=== PATIENT | female | born 1955 | race African-American/Black ===

== ENCOUNTER 2017-12-06 04:02 | Emergency (ER) | payer SELFPAY ==
[2017-12-06] MEDS ORDERED: Furosemide 40 MG/4 ML VIAL ONE (04:31)
[2017-12-06 04:33] LABS: #Basophils 0.1 thou/uL (0.0-0.2); #Eosinphils 0.3 thou/uL (0.0-0.7); #Lymphocytes 2.9 thou/uL (1.20-3.40); #Monocytes 0.6 thou/uL (0.11-0.59); #Neutrophils 4.1 thou/uL (1.40-6.50); %Basophils 1.2 % (0.0-1.0); %Eosinophils 3.5 % (0.0-10.0); %Lymphocytes 36.1 % (21.0-51.0); %Monocytes 7.7 % (0.0-10.0); %Neutrophils 51.5 % (42.0-75.0); Mean Corpuscular HGB CONC 32.9 g/dL (32.0-36.0); Mean Corpuscular Hemoglobin 32.4 pg (27.0-31.0); Mean Corpuscular Volume 98.5 fl (81.0-99.0); Platelet Count 293 thou/uL (130-400); RBC Distribution Width 12.3 % (11.5-14.5); Red Blood Cell (RBC) Count 3.72 mill/uL (4.20-5.40); White Blood Cell (WBC) Count 7.9 thou/uL (4.8-10.8)
[2017-12-06 04:42] LABS: Anion Gap 12 mmol/L (10-20); BUN (Urea Nitrogen) 16 mg/dL (9.8-20.1); Calc. Creatinine Clearance 0 mL/min (70-130); Calcium 9.5 mg/dL (7.8-10.44); Carbon Dioxide 29 mmol/L (23-31); Chloride 107 mmol/L (98-107); Estimated GFR-MDRD 58; Glucose 109 mg/dL (80-115); Sodium 144 mmol/L (136-145)
[2017-12-06 04:49] LABS: CKMB 0.6 ng/mL (0-6.6); Troponin I Less than 0.010 ng/mL (< 0.028)
--- NOTE | 2017-12-06 08:05 | RAD ---
PORTABLE CHEST 1 VIEW: Date: 12/06/17 Time: 0421 hours HISTORY: Dyspnea. FINDINGS/IMPRESSION: Comparison made with exam of 03/24/16. The heart size is enlarged. The aorta is tortuous. There is prominent vascular congestion. No focal a reas of consolidation, pneumothoraces, or large effusions are seen. POS: [facility]
== END 2017-12-06 07:35 | disposition home or self-care (01) ==
LOC: ERS 04:02
DX: R06.02 Shortness of breath (principal); Z71.6 Tobacco abuse counseling; F17.210 Nicotine dependence, cigarettes, uncomplicated; E11.9 Type 2 diabetes mellitus without complications; E78.5 Hyperlipidemia, unspecified; I11.0 Hypertensive heart disease with heart failure; I50.9 Heart failure, unspecified; Z79.899 Other long term (current) drug therapy; Z79.84 Long term (current) use of oral hypoglycemic drugs
CPT/HCPCS: 36415; 71045; 80048; 82553; 83880; 84484; 85025; 93005; 96374; 99406; J1940

== ENCOUNTER 2018-01-14 14:14 | Inpatient (IN) | payer MEDICARE, OTHER ==
[2018-01-14 14:53] LABS: #Basophils 0.1 thou/uL (0.0-0.2); #Eosinphils 0.3 thou/uL (0.0-0.7); #Lymphocytes 2.8 thou/uL (1.20-3.40); #Monocytes 0.6 thou/uL (0.11-0.59); %Basophils 1.4 % (0.0-1.0); %Eosinophils 3.4 % (0.0-10.0); %Lymphocytes 35.7 % (21.0-51.0); %Monocytes 7.7 % (0.0-10.0); %Neutrophils 51.7 % (42.0-75.0); Hemoglobin 10.6 g/dL (12.0-16.0); Mean Corpuscular Hemoglobin 32.4 pg (27.0-31.0); Mean Corpuscular Volume 98.3 fL (78.0-98.0); Mean Platelet Volume 7.2 fL (7.4-10.4); Platelet Count 274 thou/uL (130-400); RBC Distribution Width 12.2 % (11.5-14.5); Red Blood Cell (RBC) Count 3.28 mill/uL (4.20-5.40); White Blood Cell (WBC) Count 7.8 thou/uL (4.8-10.8)
--- NOTE | 2018-01-14 15:02 | RAD ---
CHEST 1 VIEW: Date: 01/14/18 HISTORY: Pain. Mastectomy. COMPARISON: 12/06/17. FINDINGS: Heart size is enlarged. There is a catheter projecting over the right hemithorax. Atelectatic changes both lung bases. No pneumothorax. IMPRESSION: 1. Postoperative drainage catheter over the right hemithorax. 2. Cardiomegaly. 3. Mild pulmonary venous congestion. POS: [facility]
[2018-01-14 15:15] LABS: ALT (SGPT) 14 U/L (8-55); AST (SGOT) 22 U/L (5-34); Albumin 3.8 g/dL (3.4-4.8); Alkaline Phosphatase 53 U/L (40-150); Anion Gap 13 mmol/L (10-20); BUN (Urea Nitrogen) 32 mg/dL (9.8-20.1); Bilirubin, Total 0.3 mg/dL (0.2-1.2); CK (CPK) 139 U/L (29-168); Calc. Creatinine Clearance 0 mL/min (70-130); Calcium 9.4 mg/dL (7.8-10.44); Carbon Dioxide 29 mmol/L (23-31); Chloride 103 mmol/L (98-107); Estimated GFR-MDRD 41; Globulin 3.7 g/dL (2.4-3.5); Glucose 111 mg/dL (80-115); Potassium 4.6 mmol/L (3.5-5.1); Protein, Total 7.5 g/dL (6.0-8.3); Sodium 140 mmol/L (136-145)
[2018-01-14 15:21] LABS: CKMB 1.8 ng/mL (0-6.6); Troponin I Less than 0.010 ng/mL (< 0.028)
[2018-01-14] MEDS ORDERED: Furosemide 40 MG/4 ML VIAL ONE (16:30)
[2018-01-14] MEDS ORDERED: Furosemide 20 MG/2 ML VIAL ONE (17:21)
[2018-01-14] MEDS ORDERED: hydrALAZINE 20 MG/ML VIAL ONE (17:44)
[2018-01-14] MEDS ORDERED: Enoxaparin Sodium 100 MG/ML SYRINGE ONE (17:44)
[2018-01-14 18:09] LABS: Actual Bicarbonate (HCO3a) 27.5 mEq/L (22-28); Base Excess (BEa) 3.1 mEq/L (-2.0 to +3.0); CO2 Tension 41.4 mmHg (35.0-45.0); Hematocrit-ABG 37.7 % (36.0-47.0); Hemoglobin (Hb) 11.4 g/dL (12.0-16.0); O2 Tension (PaO2) 119.8 mmHg (> 80.0); pH, Arterial 7.44 (7.35-7.45)
[2018-01-14 18:10] LABS: Calcium, Ionized 1.2 mmol/L (1.12-1.30)
[2018-01-14 18:11] LABS: Analyzer IN Cardio ER; Puncture Site LRA
--- NOTE | 2018-01-14 19:13 | ULT ---
BILATERAL LOWER EXTREMITY VENOUS DUPLEX EXAM: 01/14/18 HISTORY: Bilateral lower extremity pain and edema. Real time color doppler evaluation of the right and left lower extremities were performed from groin to calf. This includes evaluation of the common femoral, superficial and profunda femoral, saphenous, popliteal and posterior tibial veins. Shows patent deep venous systems bilaterally. There is normal compressibility and augmentation. There is no evidence of DVT. IMPRESSION: No evidence of DVT of either lower extremity. POS: [facility]
[2018-01-14] MEDS ORDERED: Acetaminophen 325 MG TAB ONE (20:55)
[2018-01-14 21:35] VITALS: BMI 29.9
[2018-01-14] MEDS ORDERED: Dextrose 5% in Water 1,000 ML IV PRN (21:35)
[2018-01-14] MEDS ORDERED: Senokot 8.6 MG TAB PO PRN (21:35)
[2018-01-14] MEDS ORDERED: Acetaminophen 325 MG TAB PO PRN (21:35)
[2018-01-14] MEDS ORDERED: Mag-Al 1200 mg/1200 mg/30 ML UDCUP PO PRN (21:35)
[2018-01-14] MEDS ORDERED: Dextrose 50% Abboject 50 ML SYRINGE SLOW IVP PRN (21:35)
[2018-01-14] MEDS ORDERED: Bisacodyl 5 MG TAB PO PRN (21:35)
[2018-01-14] MEDS ORDERED: Ondansetron HCl/PF 4 MG/2 ML Vial IVP PRN (21:35)
[2018-01-14] MEDS ORDERED: Calcium Carbonate 500 MG ChewTAB PO PRN (21:35)
[2018-01-14] MEDS ORDERED: HumaLOG 300 UNITS/3 ML VIAL SC PRN ×2 (21:36)
[2018-01-14] MEDS ORDERED: hydrALAZINE 20 MG/ML VIAL SLOW IVP PRN (21:39)
[2018-01-14] MEDS ORDERED: cloNIDine 0.1 MG TAB PO PRN (21:39)
[2018-01-14 22:20] LABS: Troponin I 0.032 ng/mL (< 0.028)
[2018-01-14] MEDS: HYDROcodone/Acetaminophen 5/325 mg Tablet PO PRN (22:53)
--- NOTE | 2018-01-14 23:24 | HP ---
DATE OF ADMISSION: 01/14/2018 PRIMARY CARE PHYSICIAN: Latosha Mcclellan MD at [facility]. CHIEF COMPLAINT: Shortness of breath. HISTORY OF PRESENTING ILLNESS: Ms. Mock is a pleasant 62-year-old female with past medical history of chronic diastolic congestive heart failure, hypertension, diabetes, dyslipidemia, and recent diagn osis of breast cancer status post right mastectomy yesterday; who presented to the ER with the above -mentioned complaint. History is mainly obtained by the patient herself. Electronic medical records have been reviewed. She was last admitted to office in 2015 with acute on chronic diastolic congest emily heart failure. An echocardiogram done at that time showed 55% EF with global left ventricular hy pertrophy. Ms. Mock reports that she was recently admitted at [facility] over the weekend and got out on the Wednesday. She was admitted for shortness of breath and was treated with BiPAP at that [facility] as well. Wednesday, she rested at home and was feeling fine and that was yesterday: She u nderwent right mastectomy for the recent diagnosis of invasive ductal carcinoma. She started to feel short of breath shortly afterwards and this morning, it got really bad. She presented to the emerge ncy room and was 92% on 2 liters oxygen. She required BiPAP initially and her chest x-ray suggested possible vascular congestion. She received 60 mg of Lasix and was quickly weaned off BiPAP. She und erwent a lower extremity Doppler ultrasound, which was negative for any DVT. Her D-dimer was found t o be elevated at 0.85, so a V/Q scan has been ordered for the morning, as her kidney function shows G FR of 41. Her BNP was found to be elevated to 808. At this time, Ms. Mock has been seen in [facility] and she is comfortably resting in bed and saturating we ll at 95% on 2 liters nasal cannula. The patient reports that she was given appointment to electric meter repairer to be seen next month on the t cannot recall the name. She reports compliance with her medications; however, she likes to drink 3 2 ounces of beers every day, sometimes two of them. She continues to smoke half pack of cigarette to one pack of cigarette per day. PAST MEDICAL HISTORY: 1. New diagnosis of invasive ductal carcinoma, right breast. 2. Chronic congestive diastolic heart failure. 3. Hypertension. 4. Dyslipidemia. 5. History of tobacco abuse. 6. Alcohol abuse. PAST SURGICAL HISTORY: 1. Right-sided mastectomy, 01/13/2018. 2. Cardiac catheterization in 2011. PSYCHIATRIC HISTORY: Anxiety. SOCIAL HISTORY: 1-2 ounces of beer every day. Smokes half pack of cigarettes daily, sometimes more. More than for 40 years. No history of drug abuse. FAMILY HISTORY: Significant for diabetes. ALLERGIES: RAHUL INHIBITORS. HOME MEDICATIONS: As follows atorvastatin 20 mg daily, aspirin 81 mg daily, isosorbide 15 mg p.o. da alexandra, Lasix 40 mg p.o. b.i.d., Coreg 3.125 mg p.o. b.i.d., [place] every 6 hours p.r.n., hydralazine 25 mg p.o. t.i.d., metformin 500 mg daily. REVIEW OF SYSTEMS: Twelve-point review of system is done, it is negative except for those mentioned in the history and physical. LABORATORY DATA: CBC shows hemoglobin 10.6, otherwise unremarkable. D-dimer 0.85. ABG done in the emergency room showed pH of 7.4, pCO2 of 41, pO2 of 119 on BiPAP. Serum chemistry: BUN 32, creatini ne 1.55 with baseline creatinine around 0.8, troponin less than 0.010 and repeat troponin of 0.032, B BUILDING CODE ADMINISTRATOR 808. PHYSICAL EXAMINATION: VITAL SIGNS: Most recent vital signs, temperature 97.6, pulse of 65, respirations 20, saturating 97% on 2 liters oxygen, blood pressure 132/59. GENERAL: No acute distress, awake, alert, oriented x3. HEENT: Mucous membrane is moist and pink. No oropharyngeal exudate or erythema. Head is normocepha lic, atraumatic. Pupils equal, reactive to light and accommodation. Extraocular movement intact. NECK: Supple without any lymphadenopathy, JVD, or bruit. CHEST: Evaluation showed bibasilar crackles without any significant wheezes. HEART: Rate and rhythm is regular without any murmur, rubs, or gallops. ABDOMEN: Soft, nontender, nondistended with positive bowel sounds. EXTREMITIES: Free of any cyanosis, clubbing, or edema. NEUROLOGIC: Nonfocal. SKIN: Free of any rashes or bruises, feel warm and dry to touch. PSYCHIATRIC: Normal affect. IMPRESSION AND PLAN: 1. Acute hypoxic respiratory failure. This is secondary to acute diastolic congestive heart failure exacerbation. The patient has already been weaned off BiPAP. We will monitor her overnight in IMCU and [facility] remains [facility]. Continue further diuresis with Lasix IV b.i.d. and o btain a transthoracic echocardiogram. We will request consultation with Cardiology while she is here and consult heart failure disease management team as well. Dietitian will be consulted as well as t he patient does not really seem to be aware of her diagnosis. She has been instructed to lay off her 32 ounces of beer as well. We will rule out pulmonary embolism with nuclear medicine perfusion scan in the morning. She has received 1 dose of therapeutic Lovenox at 1 mg/kg in the emergency room. 2. Acute on chronic diastolic congestive heart failure as above. Continue IV diuresis with daily we ights and strict I's and O's and echocardiogram. Heart failure management team will be consulted. S flo had a cardiac catheterization done in 2011, which did not show any significant coronary artery dis ease. She will follow up with Cardiology as an outpatient as well. 3. Elevated troponin in the indeterminate range, likely demand ischemia from acute congestive heart failure. Continue to trend serial cardiac enzymes and restart her aspirin, beta cheryle, statin. Dior hackett is allergic to RAHUL INHIBITORS. 4. Hypertension, currently well controlled. Resume home medications as above. 5. Acute renal insufficiency. We will avoid any nephrotoxic medications and recheck in the morning. 6. Elevated D-dimer and lower extremity ultrasound Doppler is negative for deep venous thrombosis. V/Q scan in the morning. She has received 1 mg/kg of Lovenox. Clinical signs and symptoms are not s uggestive of a pulmonary embolism at this time. 7. Diabetes mellitus. We will hold her metformin given acute renal insufficiency and put her on ins ulin-sliding scale for now and monitor Accu-Cheks a.c. and at bedtime. 8. Deep venous thrombosis and gastrointestinal prophylaxis. 9. Add p.r.n. medication orders. 10. Dyslipidemia. Resume her atorvastatin. 11. Code status: FULL CODE. Discussed with the patient. DISPOSITION: Ms. Mock is currently being admitted to the hospital for acute hypoxic respiratory holden lure due to acute diastolic congestive heart failure. Further management will depend upon her clinic al course.
[2018-01-15 01:21] LABS: Troponin I 0.035 ng/mL (< 0.028)
[2018-01-15 04:38] LABS: #Eosinphils 0.2 thou/uL (0.0-0.7); #Monocytes 0.7 thou/uL (0.11-0.59); #Neutrophils 5.7 thou/uL (1.40-6.50); %Basophils 0.5 % (0.0-1.0); %Eosinophils 1.8 % (0.0-10.0); %Lymphocytes 31.3 % (21.0-51.0); %Monocytes 7.2 % (0.0-10.0); %Neutrophils 59.2 % (42.0-75.0); Hemoglobin 10.2 g/dL (12.0-16.0); Mean Corpuscular HGB CONC 32.6 g/dL (32.0-36.0); Mean Platelet Volume 7.8 fL (7.4-10.4); Platelet Count 265 thou/uL (130-400); RBC Distribution Width 12.1 % (11.5-14.5); White Blood Cell (WBC) Count 9.7 thou/uL (4.8-10.8)
[2018-01-15 04:44] LABS: Anion Gap 11 mmol/L (10-20); BUN (Urea Nitrogen) 27 mg/dL (9.8-20.1); Calc. Creatinine Clearance 60 mL/min (70-130); Calcium 9.4 mg/dL (7.8-10.44); Carbon Dioxide 31 mmol/L (23-31); Chloride 102 mmol/L (98-107); Estimated GFR-MDRD 57; Glucose 157 mg/dL (80-115); Potassium 3.8 mmol/L (3.5-5.1); Sodium 140 mmol/L (136-145)
[2018-01-15 04:49] LABS: Troponin I 0.061 ng/mL (< 0.028)
[2018-01-15] MEDS: Furosemide 40 MG/4 ML VIAL SLOW IVP SCH ×2 (06:08→13:54)
[2018-01-15] MEDS: hydrALAZINE 25 MG TAB PO SCH ×3 (09:41→20:41)
[2018-01-15] MEDS: Enoxaparin Sodium 40 MG/0.4 ML SYRINGE SC SCH (09:41)
[2018-01-15] MEDS: Aspirin 81 mg Enteric Coated Tablet PO SCH (09:42)
[2018-01-15] MEDS: Famotidine 20 MG TAB PO SCH (09:42)
[2018-01-15] MEDS: Carvedilol 3.125 MG TAB PO SCH ×2 (09:42→20:42)
[2018-01-15] MEDS: HYDROcodone/Acetaminophen 5/325 mg Tablet PO PRN (09:44)
--- NOTE | 2018-01-15 11:39 | NM ---
PERFUSION LUNG SCAN: HISTORY: A 62-year-old female with a history of dyspnea and shortness of breath. The patient refused ventilat ion study. COMPARISON: Chest x-ray from 01/14/2018. TECHNIQUE: The patient was injected with 6.2 millicuries technetium 99m MAA intravenously. FINDINGS: Perfusion is slightly patchy, but no segmental or larger areas of perfusion defects are noted. IMPRESSION: No segmental or larger areas of perfusion defects. Findings are evident for a low probability of acu te pulmonary embolus. POS: [facility]
--- NOTE | 2018-01-15 14:05 | CON ---
DATE OF CONSULTATION: 01/15/2018 REASON FOR CONSULTATION: Congestive heart failure. HISTORY OF PRESENT ILLNESS: Ms. Mock is a pleasant 62-year-old woman, who I have seen and evaluated in the past. She was seen and evaluated 3 years ago. She underwent coronary angiography at that [facility] and was found to have no significant coronary artery disease, that was in 2011. She states she recently presented to [place] 1 week ago with congestive heart failure like sy mptoms. She was seen and evaluated and admitted. She was discharged 3 days later. She then had taco ctive breast surgery scheduled at [facility] on . She was released on Wednesday. She states she w ent to the pharmacy shortly after being discharged and developed shortness of breath. She then proce eded to [facility]. She appears comfortable currently. She denies a chest pain, pressure, or other associated symptoms s uggesting angina. She has not had a followup with Cardiology over the last 6 years. PAST MEDICAL HISTORY: CHF, unknown etiology (BNP of 800), hypertension, hyperlipidemia, tobacco abus e, ductal cell carcinoma of the right breast, recent mastectomy. SOCIAL HISTORY: A ygfu-bcji-yfi-day tobacco use, 1-2 alcoholic beverages per day. No current drug u se. FAMILY HISTORY: Negative for CAD. CURRENT MEDICATIONS: RAHUL INHIBITOR THERAPY. HOME MEDICATIONS: Include atorvastatin, Coreg, [place], isosorbide, Lasix, hydralazine. REVIEW OF SYSTEMS: Ten-point review of systems reviewed and as above, otherwise negative. PHYSICAL EXAMINATION: VITAL SIGNS: Blood pressure 140/74, pulse 55, temperature 98.4. GENERAL: Patient is a pleasant female who is in no acute distress. The patient appears her stated a ge. NEUROLOGIC: The patient is alert and oriented times 3 with no focal neurologic deficits. HEENT: Sclerae without icterus. Mouth has moist mucous membranes with normal pallor. NECK: No JVD. Carotid upstroke brisk. No bruits bilaterally. LUNGS: Crackles noted bilaterally. BACK: No scoliosis or kyphosis. CARDIAC: Regular rate and rhythm with normal S1 and S2. No S3 or S4 noted. No significant rubs, mu rmurs, thrills, or gallops noted throughout the precordium. PMI is not displaced. There is no wanda ternal heave. ABDOMEN: Soft, nontender, nondistended. No peritoneal signs present. No hepatosplenomegaly. No ab normal striae. EXTREMITIES: 2+ femoral and 2+ dorsalis pedis pulses. No cyanosis, clubbing, or edema. SKIN: No gross abnormalities. PERTINENT LABORATORY DATA: Hemoglobin 10.2, creatinine 1.17 with a GFR of 57. Peak troponin 0.061. BNP of 1737. EKG: Normal sinus rhythm with ST-T-wave changes suggesting LVH. IMPRESSION: 1. Heart failure of unknown etiology. 2. Shortness of breath. 3. Ductal cell carcinoma. 4. Tobacco abuse. RECOMMENDATIONS: Ms. Mock' symptoms likely represent diastolic dysfunction. She had an echocardiog juanita performed in 2016 with a significant left ventricular hypertrophy and normal left ventricular eje ction fraction. This may be related to her recent increased fluids during surgery. At this point, bert hackett would recommend repeating her echocardiogram. Continue to diurese. Continue to assess her creatin ine closely. She has no current symptoms suggesting angina.
[2018-01-15] MEDS: Atorvastatin Calcium 20 MG TAB PO SCH (20:42)
--- NOTE | 2018-01-15 21:27 | CON ---
DATE OF CONSULTATION: 01/15/2018 HISTORY OF PRESENT ILLNESS: This is a 62-year-old female who apparently sees physician at [facility]. In fact, she just underwent what she describes as a mastectomy, was due to get her medication refill when she developed shortness of breath for which she had to come straight to the hospital here. A V/Q scan was done and an x-ray was done, which shows congestive heart failure and also pulmonary em boli. She smoked a pack a day. She has been drinking excessively recently because of recent surgery. This morning, she denies any chest pain, chills or sweats. She is coughing stuff, which is relatively clear. PAST MEDICAL HISTORY: Diabetes, hyperlipidemia, high cholesterol, congestive heart failure, tobacco abuse, hypertension. PREVIOUS SURGERIES: Hysterectomy, recent mastectomy 24 hours ago. MEDICATIONS: List of medicines from home includes metformin 500 twice a day, hydralazine 25, Ismo 15 three times a day, hydrocodone, Lasix 40, Coreg 3.125, Lipitor 20, aspirin 81. ALLERGIES: RAHUL. SOCIAL HISTORY: As noted, alcohol abuse, tobacco abuse. No substance abuse. REVIEW OF SYSTEMS: Otherwise 10-point negative. PHYSICAL EXAMINATION: GENERAL: She appears to be in no acute distress. She is off the BiPAP. VITAL SIGNS: Pulse is 59, temperature 97, blood pressure 129/65, sats are 97% on 3 liters. CHEST: Bilateral crackles. CARDIAC: Normal S1, S2. No gallops. ABDOMEN: Soft, no masses. LABORATORY DATA: White count 9000, H and H is 10 and 31, platelet count 265,000. Creatinine 1.7, GF R is 57. Electrolytes are normal. Troponin slightly elevated. IMPRESSION: 1. Respiratory distress secondary to congestive heart failure. 2. Chronic obstructive pulmonary disease. 3. Recent mastectomy for breast cancer. 4. Alcohol and tobacco abuse. PLAN: Would continue neb treatments, supportive care, low dose prednisone, Lasix, input from [facility]. We will follow while in the MICU.
[2018-01-16] MEDS: HYDROcodone/Acetaminophen 5/325 mg Tablet PO PRN ×3 (01:50→22:31)
[2018-01-16 04:32] LABS: Anion Gap 13 mmol/L (10-20); BUN (Urea Nitrogen) 27 mg/dL (9.8-20.1); Calc. Creatinine Clearance 71 mL/min (70-130); Calcium 9.7 mg/dL (7.8-10.44); Carbon Dioxide 26 mmol/L (23-31); Chloride 104 mmol/L (98-107); Estimated GFR-MDRD 69; Glucose 126 mg/dL (80-115); Potassium 4.2 mmol/L (3.5-5.1); Sodium 139 mmol/L (136-145)
[2018-01-16] MEDS: Furosemide 40 MG/4 ML VIAL SLOW IVP SCH (06:44)
--- NOTE | 2018-01-16 07:52 | PDOC.CTH ---
Cardiology Progress Note - Subjective Feels better after diuresis. Pt states she did not have a cardiac piper at last week or during stay [facility]. Recent echo with EF of 30-35%. - Objective Vital Signs Temp Pulse Resp BP BP Pulse Ox 01/16/18 07:00 98.3 F 66 18 120/74 98 01/16/18 04:00 97.2 F L 53 L 21 H 126/76 95 01/16/18 01:13 97 01/16/18 00:00 97.9 F 66 15 126/76 97 01/15/18 20:41 70 126/76 01/15/18 20:00 98.9 F 70 20 97 Weight 166 lb 6.4 oz 01/15/18 01/16/18 01/17/18 06:59 06:59 06:59 Intake Total 490 1094 Output Total 630 1715 Balance -140 -621 - Physical Examination General/Neuro: alert & oriented x3, NAD Neck: carotid US brisk, no JVD present Lungs: other: (crackles bilaterally) Heart: RRR Abdomen: NT/ND, soft Extremities: + femoral B - Labs Result Diagrams: 01/15/18 03:37 01/16/18 03:31 Troponin/CKMB CK-MB (CK-2) 1.8 ng/mL (0-6.6) 01/14/18 14:45 Troponin I 0.061 ng/mL (< 0.028) H 01/15/18 03:37 - Assessment/Plan CArdiomyopathy of unknown etiology SOB Recent mastectomy HTN Discuss proceed ing with angio given new findings of cardiomyopathy. R/B of angio discussed. Also discussed R/B of DCS. No contraindications. Will speak with Yousif Rendon MD prior to cath. continue iv lasix
[2018-01-16] MEDS: predniSONE 20 MG TAB PO SCH (09:15)
[2018-01-16] MEDS: Carvedilol 3.125 MG TAB PO SCH ×2 (09:16→22:19)
[2018-01-16] MEDS: Enoxaparin Sodium 40 MG/0.4 ML SYRINGE SC SCH (09:16)
[2018-01-16] MEDS: hydrALAZINE 25 MG TAB PO SCH ×3 (09:16→22:19)
[2018-01-16] MEDS: Famotidine 20 MG TAB PO SCH (09:16)
[2018-01-16] MEDS: Aspirin 81 mg Enteric Coated Tablet PO SCH (09:16)
[2018-01-16] MEDS ORDERED: Communication Order-Pharmacy FS SCH (12:15)
[2018-01-16] MEDS ORDERED: Diazepam 5 MG TAB PO SCH (12:15)
--- NOTE | 2018-01-16 12:22 | PRG ---
DATE OF SERVICE: 01/16/2018 Ms. Mock recently was found to have a LVEF 30%-35%. She recently had a mastectomy. We would recomm end coronary angiography to assess her coronary anatomy. I did speak to the doctor on-call for Dr. Yousif Rendon. Given that her surgery was on , it would be okay from their standpoint to proceed with angio with intervention if needed. He is aware o f the use of heparin and Plavix and aspirin. I discussed the procedure in full detail with Ms. Mock , risks include, but are not limited to the following: , stroke, NV, need for emergency surgery , loss of limb, bleeding, and infection, as well as a reaction to the dye causing kidney failure and needing long-term dialysis. I also discussed the risks of PCI to include all of the above including coronary dissection and perforation in addition to acute stent thrombosis and restenosis. All questi ons about the procedure were answered. Given the above, the patient agreed to proceed with coronary angiography and possible PCI. I also discussed drug-coated versus nondrug-coated stent placement. T here are no cardiac indications. We will proceed if needed. Further recommendation pending the abov e.
--- NOTE | 2018-01-16 14:00 | PRG ---
DATE OF SERVICE: 01/16/2018 SUBJECTIVE: This morning, she is better. She is still complaining of some vague right-sided pleurit ic chest pain, but less short of breath. EF was 35%. PHYSICAL EXAMINATION: VITAL SIGNS: Blood pressure is 140/59, pulse 66, temperature is 98, sats 100% on room air. CHEST: Decreased breath sounds without any wheezing. CARDIAC: Normal S1 and S2. No gallops. ABDOMEN: Soft, no masses. IMPRESSION: 1. Congestive heart failure. 2. Cardiomyopathy, recent mastectomy. PLAN: Pulmonary-[facility] continue neb treatments, supportive care, cardiac care. We will follow.
[2018-01-16] MEDS: Furosemide 100 MG/10 ML VIAL SLOW IVP SCH (14:44)
--- NOTE | 2018-01-16 15:39 | PDOC.PN ---
- Subjective Encounter Start Date: 01/15/18 Encounter Start Time: 09:30 -: old records requested/rev Pt seen and exmained, chart reviewed in its entirety, this is my frist visit with this patient Admitted for Acut eonchronic CHF, volume overlaod, hypoxemic resp failure requiring bipap voernigh,t weane doff of bipap, good response to Diuresis. VQ done, ventilation part due topt refusal to put on mask. perfusion part normal No F/C, no N/V/C/D, no cough, no psutum or hemoptysis. no CP All systems reviewed adn neg x as per HPI - Objective MAR Reviewed: Yes Vital Signs & Weight: Vital Signs (12 hours) Temp Pulse Pulse Pulse Resp BP BP 01/16/18 14:46 68 123/60 01/16/18 13:21 68 18 01/16/18 11:59 01/16/18 11:00 98.1 F 62 20 01/16/18 09:16 66 148/59 H 01/16/18 08:36 86 67 148/59 H 01/16/18 07:58 98.3 F 66 18 01/16/18 07:56 58 L 18 01/16/18 07:00 98.3 F 66 18 01/16/18 04:00 97.2 F L 53 L 21 H BP BP Pulse Ox Pulse Ox 01/16/18 14:46 01/16/18 13:21 92 L 01/16/18 11:59 95 01/16/18 11:00 105/56 L 94 L 01/16/18 09:16 01/16/18 08:36 120/74 95 01/16/18 07:58 95 01/16/18 07:56 93 L 01/16/18 07:00 120/74 98 01/16/18 04:00 126/76 95 Weight Weight 166 lb 6.4 oz I&O: 01/15/18 01/16/18 01/17/18 06:59 06:59 06:59 Intake Total 490 1094 Output Total 738 1715 Balance -140 -621 Result Diagrams: 01/15/18 03:37 01/16/18 03:31 Additional Labs: Accuchecks 01/16/18 01/16/18 01/15/18 10:57 05:55 20:12 POC Glucose 180 H 267 H 208 H 01/15/18 17:06 POC Glucose 92 Radiology Reviewed by me: Yes EKG Reviewed by me: Yes Phys Exam - Physical Examination Constitutional: NAD HEENT: PERRLA, moist MMs, sclera anicteric, oral pharynx no lesions Neck: no nodes, no JVD, supple, full ROM Respiratory: no wheezing, no rhonchi, clear to auscultation bilateral bibasilar rales present Cardiovascular: RRR, no significant murmur, no rub Gastrointestinal: soft, non-tender, no distention, positive bowel sounds Musculoskeletal: pulses present, edema present Neurological: non-focal, normal sensation, moves all 4 limbs Lymphatic: no nodes Psychiatric: normal affect, A&O x 3 Dx/Plan (1) DM type 2 (diabetes mellitus, type 2) Status: Chronic Qualifiers: Diabetes mellitus termite technician insulin use: unspecified termite technician insulin use status Diabetes mellitus complication status: without complication Qualified Code(s): E11.9 - Type 2 diabetes mellitus without complications (2) Malignant hypertension Code(s): I10 - ESSENTIAL (PRIMARY) HYPERTENSION Status: Chronic (3) Diastolic CHF, acute on chronic Code(s): I50.33 - ACUTE ON CHRONIC DIASTOLIC (CONGESTIVE) HEART FAILURE Status : Chronic (4) Non-ischemic cardiomyopathy Code(s): I42.9 - CARDIOMYOPATHY, UNSPECIFIED Status: Chronic - Plan cont current plan of care, PT/OT, respiratory therapy, out of bed/ambulate * . contiue diuresis pulm and cardiology to see. OK to transfer to floor
--- NOTE | 2018-01-16 15:43 | PDOC.PN ---
- Subjective Encounter Start Date: 01/16/18 Encounter Start Time: 13:55 breathing better. seen by cardiology Dr paulino neil to cath tomorrow no F/C, no N/V/D/C,no Cp or sOB, no cough all systems reviewed and neg x as aper hPI - Objective MAR Reviewed: Yes Vital Signs & Weight: Vital Signs (12 hours) Temp Pulse Pulse Pulse Resp BP BP 01/16/18 14:46 68 123/60 01/16/18 13:21 68 18 01/16/18 11:59 01/16/18 11:00 98.1 F 62 20 01/16/18 09:16 66 148/59 H 01/16/18 08:36 86 67 148/59 H 01/16/18 07:58 98.3 F 66 18 01/16/18 07:56 58 L 18 01/16/18 07:00 98.3 F 66 18 01/16/18 04:00 97.2 F L 53 L 21 H BP BP Pulse Ox Pulse Ox 01/16/18 14:46 01/16/18 13:21 92 L 01/16/18 11:59 95 01/16/18 11:00 105/56 L 94 L 01/16/18 09:16 01/16/18 08:36 120/74 95 01/16/18 07:58 95 01/16/18 07:56 93 L 01/16/18 07:00 120/74 98 01/16/18 04:00 126/76 95 Weight Weight 166 lb 6.4 oz I&O: 01/15/18 01/16/18 01/17/18 06:59 06:59 06:59 Intake Total 490 1094 Output Total 630 1715 Balance -140 -621 Result Diagrams: 01/15/18 03:37 01/16/18 03:31 Additional Labs: Accuchecks 01/16/18 01/16/18 01/15/18 10:57 05:55 20:12 POC Glucose 180 H 267 H 208 H 01/15/18 17:06 POC Glucose 92 Radiology Reviewed by me: Yes Phys Exam - Physical Examination Constitutional: NAD HEENT: PERRLA, moist MMs, sclera anicteric, oral pharynx no lesions Neck: no nodes, no JVD, supple, full ROM Respiratory: no wheezing, no rales, no rhonchi, clear to auscultation bilateral Cardiovascular: RRR, no significant murmur, no rub Gastrointestinal: soft, non-tender, no distention, positive bowel sounds Musculoskeletal: no edema, pulses present Neurological: non-focal, normal sensation, moves all 4 limbs Lymphatic: no nodes Psychiatric: normal affect, A&O x 3 Skin: no rash, normal turgor, cap refill <2 seconds Dx/Plan (1) DM type 2 (diabetes mellitus, type 2) Status: Chronic Qualifiers: Diabetes mellitus group home insulin use: unspecified termite exterminator insulin use status Diabetes mellitus complication status: without complication Qualified Code(s): E11.9 - Type 2 diabetes mellitus without complications (2) Malignant hypertension Code(s): I10 - ESSENTIAL (PRIMARY) HYPERTENSION Status: Chronic (3) Diastolic CHF, acute on chronic Code(s): I50.33 - ACUTE ON CHRONIC DIASTOLIC (CONGESTIVE) HEART FAILURE Status : Chronic (4) Non-ischemic cardiomyopathy Code(s): I42.9 - CARDIOMYOPATHY, UNSPECIFIED Status: Chronic - Plan cont current plan of care * . heart cath tomorrow, transfer to tele when bed available, continue diuresis
[2018-01-16] MEDS: Atorvastatin Calcium 20 MG TAB PO SCH (22:21)
[2018-01-17 05:46] LABS: Anion Gap 12 mmol/L (10-20); BUN (Urea Nitrogen) 35 mg/dL (9.8-20.1); Calc. Creatinine Clearance 66 mL/min (70-130); Carbon Dioxide 30 mmol/L (23-31); Chloride 101 mmol/L (98-107); Estimated GFR-MDRD 63; Glucose 90 mg/dL (80-115); Potassium 3.5 mmol/L (3.5-5.1); Sodium 139 mmol/L (136-145)
[2018-01-17] MEDS: predniSONE 20 MG TAB PO SCH (06:34)
[2018-01-17] MEDS: Aspirin 81 mg Enteric Coated Tablet PO SCH (06:34)
[2018-01-17] MEDS: hydrALAZINE 25 MG TAB PO SCH ×2 (06:34→14:09)
[2018-01-17] MEDS: Carvedilol 3.125 MG TAB PO SCH (06:34)
[2018-01-17] MEDS: Famotidine 20 MG TAB PO SCH (06:35)
[2018-01-17 07:07] LABS: Hemoglobin 11.2 g/dL (12.0-16.0); Mean Corpuscular HGB CONC 33.2 g/dL (32.0-36.0); Mean Corpuscular Hemoglobin 32.3 pg (27.0-31.0); Mean Corpuscular Volume 97.3 fL (78.0-98.0); Mean Platelet Volume 7.7 fL (7.4-10.4); Platelet Count 309 thou/uL (130-400); Red Blood Cell (RBC) Count 3.47 mill/uL (4.20-5.40); White Blood Cell (WBC) Count 7.1 thou/uL (4.8-10.8)
[2018-01-17] MEDS ORDERED: Lidocaine 1% (PF) 30 ML VIAL ONE (07:31)
[2018-01-17] MEDS: Furosemide 100 MG/10 ML VIAL SLOW IVP SCH ×2 (08:03→14:12)
[2018-01-17 08:27] LABS: Band 1 % (5-11); Eosinophils 1 % (0-10); Lymphocytes 47 % (21-51); MDiff Complete? YES; Monocytes 17 % (0-10); Neutrophil 34 % (42-75); RBC Morphology Normal
[2018-01-17] MEDS ORDERED: Fentanyl 100 MCG/2 ML VIAL ONE (08:53)
[2018-01-17] MEDS ORDERED: Midazolam HCl 2 mg/2 ml Vial ONE (08:53)
[2018-01-17] MEDS ORDERED: Acetaminophen/Codeine 30-300mg Tablet PO PRN ×2 (09:10)
[2018-01-17] MEDS ORDERED: traMADol HCl 50 MG TAB PO PRN (09:10)
[2018-01-17] MEDS ORDERED: Nitroglycerin 0.4 MG TAB (25 Tab Bottle) SL PRN (09:10)
[2018-01-17] MEDS ORDERED: Sodium Chloride 0.9% 200 ML IV PRN (09:15)
[2018-01-17] MEDS ORDERED: Sodium Chloride 0.9% 1,000 ML IV SCH (09:15)
--- NOTE | 2018-01-17 10:43 | PRG ---
DATE OF SERVICE: 01/17/2018 This morning she is better, she is less short of breath. Status post cardiac cath. PHYSICAL EXAMINATION: VITAL SIGNS: Sats are 97% on room air, temperature 98, pulse 70, respiration 16, blood pressure 115/ 76. CHEST: Chest revealed decreased breath sounds, no wheezing. CARDIAC: Normal S1-S2. No gallops. ABDOMEN: Soft, no masses. IMPRESSION: 1. Chest pain, status post cath. 2. No evidence of pulmonary issues. 3. Baseline congestive heart failure. 4. Recent hysterectomy. PLAN: Pulmonary-[place] continue PT. Disposition as per Cardiology. Pulmonary will follow at a [facility]. Please call as needed.
[2018-01-17] MEDS ORDERED: Iopamidol 370 76% 100 ML VIAL ONE (11:12)
[2018-01-17] MEDS ORDERED: Clopidogrel Bisulfate 75 MG TAB ONE (12:56)
--- NOTE | 2018-01-17 14:29 | PDOC.PN ---
- Subjective Encounter Start Date: 01/17/18 Encounter Start Time: 14:28 Subjective: s/p cardiac Cath. feels well. no Chest pain/SOB.on RA - Objective MAR Reviewed: Yes Vital Signs & Weight: Vital Signs (12 hours) Temp Pulse Resp BP BP Pulse Ox 01/17/18 14:09 154/72 H 01/17/18 11:04 98.5 F 60 16 136/104 H 94 L 01/17/18 08:24 98.5 F 60 16 115/71 97 01/17/18 06:53 60 14 01/17/18 06:34 60 135/76 01/17/18 04:30 99 F 50 L 20 124/80 98 Weight Weight 169 lb 1.6 oz I&O: 01/16/18 01/17/18 01/18/18 06:59 06:59 06:59 Intake Total 1094 1458 Output Total 8001 7720 [facility]563 [id number] Result Diagrams: 01/17/18 05:06 01/17/18 05:06 Additional Labs: Accuchecks 01/17/18 01/16/18 01/16/18 06:38 22:39 20:09 POC Glucose 97 134 H 355 H 01/16/18 16:33 POC Glucose 143 H labs reviewed Laboratory Tests 01/14/18 01/15/18 01/16/18 14:46 03:37 03:31 Creatinine 1.55 H 1.17 H 0.99 01/17/18 05:06 Creatinine 1.07 Phys Exam - Physical Examination Constitutional: NAD HEENT: PERRLA, moist MMs, sclera anicteric, oral pharynx no lesions Neck: no nodes, no JVD, supple, full ROM Respiratory: no wheezing, no rales, no rhonchi, clear to auscultation bilateral Cardiovascular: RRR, no significant murmur, no rub Gastrointestinal: soft, non-tender, no distention, positive bowel sounds Musculoskeletal: no edema, pulses present R mastectomy status w drain in place Neurological: non-focal, normal sensation, moves all 4 limbs Psychiatric: normal affect, A&O x 3 Skin: no rash Dx/Plan (1) Diastolic CHF, acute on chronic Code(s): I50.33 - ACUTE ON CHRONIC DIASTOLIC (CONGESTIVE) HEART FAILURE Status : Chronic (2) Demand ischemia Code(s): I24.8 - OTHER FORMS OF ACUTE ISCHEMIC HEART DISEASE Status: Acute (3) LANEY (acute kidney injury) Code(s): N17.9 - ACUTE KIDNEY FAILURE, UNSPECIFIED Status: Acute (4) DM type 2 (diabetes mellitus, type 2) Status: Chronic Qualifiers: 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 webster.S/P R mastectomy this month (7) HTN (hypertension) Code(s): I10 - ESSENTIAL (PRIMARY) HYPERTENSION Status: Chronic (8) HLD (hyperlipidemia) Code(s): E78.5 - HYPERLIPIDEMIA, UNSPECIFIED Status: Chronic (9) Tobacco abuse counseling Code(s): Z71.6 - TOBACCO ABUSE COUNSELING Status: Chronic - Plan plan discussed w/ family, DVT proph w/SCDs s/p cardiac Cath-mild to Mod CAD.Medical managemnet per cardiology -: may need life Vest prior to Dc. -: Clinically stable for DC today if OK w Cardiology -: OP f/u w HF clinic & CR and cardiology recommended -: cont cardio-prudent meds.ASA,statin,BB. Allergic to RAHUL-I. * .add lasix and aldactone on DC as well * tele * am labs if still here tomorrow Review of Systems - Review of Systems Constitutional: negative: fever, chills, sweats, weakness, malaise, other ENT: negative: Ear Pain, Ear Discharge, Nose Pain, Nose Discharge, Nose Congestion, Mouth Pain, Mouth Swelling, Throat Pain, Throat Swelling, Other Respiratory: negative: Cough, Dry, Shortness of Breath, Hemoptysis, SOB with Excertion, Pleuritic Pain, Sputum, Wheezing Cardiovascular: negative: chest pain, palpitations, orthopnea, paroxysmal nocturnal dyspnea, edema, light headedness, other Gastrointestinal: negative: Nausea, Vomiting, Abdominal Pain, Diarrhea, Constipation, Melena, Hematochezia, Other Genitourinary: negative: Dysuria, Frequency, Incontinence, Hematuria, Retention , Other Musculoskeletal: negative: Neck Pain, Shoulder Pain, Arm Pain, Back Pain, Hand Pain, Leg Pain, Foot Pain, Other Neurological: negative: Weakness, Numbness, Incoordination, Change in Speech, Confusion, Seizures, Other - Medications/Allergies Allergies/Adverse Reactions: Allergies Allergy/AdvReac Type Severity Reaction Status Date / Time RAHUL Inhibitors Allergy Intermediate Swollen Verified 01/14/18 21:57 Lips ARB-Angiotensin Receptor Allergy tingling Verified 01/17/18 13:10 Antagonist tongue Medications: Current Medications Acetaminophen (Tylenol) 650 mg PO Q4H PRN PRN Reason: Headache/Fever or Pain Acetaminophen/Codeine Phosphate (Tylenol #3) 1 tab PO Q4H PRN PRN Reason: Mild Pain (1-3) Acetaminophen/Codeine Phosphate (Tylenol #3) 2 tab PO Q4H PRN PRN Reason: Moderate Pain (4-6) Hydrocodone Bitart/Acetaminophen ([place] 5/325) 1 tab PO Q4H PRN PRN Reason: Moderate Pain (4-6) Last Admin: 01/16/18 22:31 Dose: 1 tab Al Hydroxide/Mg Hydroxide (Maalox) 30 ml PO Q6H PRN PRN Reason: Heartburn or Indigestion Albuterol/Ipratropium (Duoneb) 3 ml NEB Q6H PRN PRN Reason: SOB &/or Wheezing Albuterol/Ipratropium (Duoneb) 3 ml NEB [id number] [facility] Last Admin: 01/17/18 13:10 Dose: 3 ml Aspirin (Ecotrin) 81 mg PO DAILY [facility] Last Admin: 01/17/18 06:34 Dose: 81 mg Atorvastatin Calcium (Lipitor) 20 mg PO HS [facility] Last Admin: 01/16/18 22:21 Dose: 20 mg Bisacodyl (Dulcolax) 10 mg PO DAILYPRN PRN PRN Reason: Constipation Calcium Carbonate (Tums) 1,000 mg PO Q4H PRN PRN Reason: Heartburn or Indigestion Carvedilol (Coreg) 3.125 mg PO BID [facility] Last Admin: 01/17/18 06:34 Dose: 3.125 mg Clonidine (Catapres) 0.1 mg PO Q4H PRN PRN Reason: SBP>160 Dextrose/Water (Dextrose 50%) 25 gm SLOW IVP PRN PRN PRN Reason: Hypoglycemia Diazepam (Valium) 5 mg PO ONE [facility] Stop: 01/17/18 23:59 Last Admin: 01/17/18 08:27 Dose: 5 mg Famotidine (Pepcid) 20 mg PO DAILY [facility] Last Admin: 01/17/18 06:35 Dose: 20 mg Furosemide (Lasix) 80 mg SLOW IVP 0600,1400 [facility] Last Admin: 01/17/18 14:12 Dose: 80 mg Glucagon (Glucagon) 1 mg IM PRN PRN PRN Reason: Hypoglycemia Hydralazine HCl (Apresoline) 10 mg SLOW IVP Q4H PRN PRN Reason: SBP>170 Hydralazine HCl (Apresoline) 25 mg PO TID [facility] Last Admin: 01/17/18 14:09 Dose: 25 mg Dextrose/Water (D5w) 1,000 mls @ 0 mls/hr IV .Q0M PRN; As Directed PRN Reason: Hypoglycemia Sodium Chloride (Normal Saline 0.9%) 200 mls @ 0 mls/hr IV ONE PRN; As Directed PRN Reason: SBP < 90 Stop: 01/17/18 23:00 Insulin Human Lispro (Humalog) 0 units SC .MODERATE SLIDING SC PRN PRN Reason: Moderate Correctional Scale Insulin Human Lispro (Humalog) 0 units SC .BEDTIME SLIDING SC PRN PRN Reason: Bedtime Correctional Scale Nitroglycerin (Nitrostat) 0.4 mg SL Q5MIN PRN PRN Reason: Chest Pain Ondansetron HCl (Zofran) 4 mg IVP Q6H PRN PRN Reason: Nausea/Vomiting Prednisone (Prednisone) 20 mg PO QAM-WM [facility] Last Admin: 01/17/18 06:34 Dose: 20 mg Senna (Senokot) 2 tab PO HSPRN PRN PRN Reason: Constipation Tramadol HCl (Ultram) 50 mg PO Q6H PRN PRN Reason: Moderate Pain (4-6)
[2018-01-17] MEDS ORDERED: Spironolactone 25 MG TAB PO SCH (15:00)
[2018-01-17 15:44] VITALS: BP 145/71; TEMP 98.3
--- NOTE | 2018-01-18 14:36 | DIS ---
DATE OF ADMISSION: 01/15/2018 DATE OF DISCHARGE: 01/17/2018 CONDITION AT THE TIME OF DISCHARGE: Stable and improved. PRIMARY CARE PHYSICIAN: Latosha Mcclellan MD DISCHARGE DIAGNOSES: 1. Acute on chronic diastolic congestive heart failure. 2. Demand ischemia. 3. Acute renal insufficiency. 4. Diabetes mellitus type 2. 5. Nonischemic cardiomyopathy. 6. History of breast cancer status post recent right mastectomy earlier this month. 7. Hypertension. 8. Dyslipidemia. 9. Tobacco abuse. DISCHARGE MEDICATIONS: As follows, Lipitor 20 mg daily, aspirin 81 mg daily, Lasix 40 mg p.o. b.i.d. , Coreg 3.125 mg p.o. b.i.d., [place] as needed, hydralazine 25 t.i.d., metformin 500 mg, Medrol Dosepa k, and Aldactone 12.5 mg daily. INHOUSE CONSULTATIONS: 1. Cardiology, Dr. Harp. 2. Pulmonary Medicine, Dr. Mcclure. PROCEDURES DONE IN THE HOSPITAL: 1. Cardiac catheterization which showed mild to moderate coronary artery disease and nonischemic car diomyopathy. Medical management is recommended. She was found to have 30% lesion in the left circum flex in the mid area and 20% lesion stenosis in the mid RCA. 2. Nuclear medicine perfusion scan, which was low probability for pulmonary embolism. 3. Transthoracic echocardiogram which shows ejection fraction of 30%-35% with restrictive diastolic dysfunction and mild to moderate tricuspid regurgitation and mitral regurgitation. HISTORY OF PRESENTING ILLNESS: Ms. Mock is a pleasant 62-year-old female with known history of hype rtension, dyslipidemia, chronic congestive diastolic heart failure and nonischemic cardiomyopathy wit h a new diagnosis of invasive ductal carcinoma of the right breast, status post right mastectomy on 0 01/13/2018 by , presented to the emergency room with complaints of shortness of breath. Upon presentation, she was somewhat hypoxic and was found to have acute on chronic diastolic congestive h eart failure exacerbation. She was also found to have elevated troponin in the indeterminant range l ikely demand ischemia. She received oxygen and was stabilized and was given Lovenox as well as Lasix and was admitted to [facility] for further evaluation on BiPAP. Please see admission history and physical for further details dictated by myself. She did have an elevated D-dimer and lower extremity ultras ound was done which was negative for DVT. VQ scan was ordered. HOSPITAL COURSE: The VQ scan was negative was low probability for pulmonary embolism. Echocardiogra m was ordered. Cardiology was consulted as well as Pulmonary Medicine because the patient was in [facility]. Dr. Harp saw the patient and given her history of nonischemic cardiomyopathy. She underwent a cardiac catheterization which showed minimal coronary artery disease. Echo was repeated which edwin wed EF of 30%-35%, which has significantly reduced in comparison to her old echocardiogram which had ejection fraction of 55% in 2016. LifeVest was ordered and the patient was fitted prior to discharge . By the time of discharge, she was back to herself and did not require any oxygen. She was started on Aldactone and was continued on RAHUL inhibitor, beta cheryle, aspirin, and Lasix as well. She was cleared for discharge by Pulmonary Medicine as well as Cardiology with outpatient followups. She was seen and examined prior to discharge. Please see hospitalist progress note from the date of discharge for further detail including [id number] interaction. She is set up for the cardiac rehab as an outpatient as well as heart failure clinic. Discharge plan was discussed with the patient who verbalized understanding. All the questions were answered. Prescriptions were provided. Total time spent 35 minutes.
== END 2018-01-17 19:15 | disposition home or self-care (01) | DRG 286 ==
LOC: ERS 14:14 → ERHOLD 19:20 → IMCU/EMU 20:53 → 2NO 01-16 20:15
PROVIDERS: ADMIT Family Medicine; ATTEND Family Medicine
PROC: 4A023N7 Measurement of Cardiac Sampling and Pressure, Left Heart, Percutaneous Approach (ICD-10-PCS; principal; 2018-01-17)
PROC: B2111ZZ Fluoroscopy of Multiple Coronary Arteries using Low Osmolar Contrast (ICD-10-PCS; 2018-01-17)
DX: I11.0 Hypertensive heart disease with heart failure (principal); J96.01 Acute respiratory failure with hypoxia; I26.99 Other pulmonary embolism without acute cor pulmonale; I24.8 Other forms of acute ischemic heart disease; I50.33 Acute on chronic diastolic (congestive) heart failure; I25.10 Atherosclerotic heart disease of native coronary artery without angina pectoris; I42.8 Other cardiomyopathies; J44.9 Chronic obstructive pulmonary disease, unspecified; E78.5 Hyperlipidemia, unspecified; F17.210 Nicotine dependence, cigarettes, uncomplicated; C50.911 Malignant neoplasm of unspecified site of right female breast; E11.9 Type 2 diabetes mellitus without complications; Z90.11 Acquired absence of right breast and nipple; Z79.84 Long term (current) use of oral hypoglycemic drugs; Z79.82 Long term (current) use of aspirin
CPT/HCPCS: 36415; 36416; 71045; 76942; 78451; 80048; 80053; 82553; 82805; 83880; 84484; 85025; 85379; 93005; 93306; 93454; 93798; 93970; 94640; 94660; 94760; 96372; 96374; 96375; 96376; 99152; A9540; C1760; C1769; J0360; J1644; J1650; J1940; J2001; J2250; J3010; J7506; J7620

== ENCOUNTER 2018-03-28 09:23 | Emergency (ER) | payer MEDICARE, MEDICAID ==
[2018-03-28 09:55] LABS: #Eosinphils 0.1 thou/uL (0.0-0.7); #Lymphocytes 0.9 thou/uL (1.20-3.40); #Monocytes 0.4 thou/uL (0.11-0.59); #Neutrophils 4.1 thou/uL (1.40-6.50); %Basophils 0.3 % (0.0-1.0); %Eosinophils 1.9 % (0.0-10.0); %Lymphocytes 15.9 % (21.0-51.0); %Monocytes 6.4 % (0.0-10.0); %Neutrophils 75.5 % (42.0-75.0); Hemoglobin 12.3 g/dL (12.0-16.0); Mean Corpuscular HGB CONC 31.6 g/dL (32.0-36.0); Mean Corpuscular Hemoglobin 30.3 pg (27.0-31.0); Mean Corpuscular Volume 95.9 fL (78.0-98.0); Mean Platelet Volume 7.5 fL (7.4-10.4); Platelet Count 315 thou/uL (130-400); RBC Distribution Width 12.9 % (11.5-14.5); Red Blood Cell (RBC) Count 4.04 mill/uL (4.20-5.40); White Blood Cell (WBC) Count 5.5 thou/uL (4.8-10.8)
--- NOTE | 2018-03-28 10:11 | RAD ---
PORTABLE UPRIGHT FRONTAL CHEST RADIOGRAPH: Date: 03-28-18 Comparison: 01-14-18 History: Shortness of breath, dyspnea. FINDINGS: There is atherosclerotic calcification of the aortic arch. There is no pneumothorax, pleural fluid, f ocal consolidation or alveolar edema. IMPRESSION: No acute findings. POS: LEOH
[2018-03-28 10:16] LABS: ALT (SGPT) 9 U/L (8-55); AST (SGOT) 14 U/L (5-34); Albumin 4.4 g/dL (3.4-4.8); Alkaline Phosphatase 75 U/L (40-150); Anion Gap 14 mmol/L (10-20); BUN (Urea Nitrogen) 16 mg/dL (9.8-20.1); Bilirubin, Total 0.3 mg/dL (0.2-1.2); Calc. Creatinine Clearance 0 mL/min (70-130); Calcium 9.9 mg/dL (7.8-10.44); Carbon Dioxide 27 mmol/L (23-31); Chloride 104 mmol/L (98-107); Estimated GFR-MDRD 62; Globulin 3.9 g/dL (2.4-3.5); Glucose 146 mg/dL (80-115); Potassium 3.4 mmol/L (3.5-5.1); Protein, Total 8.3 g/dL (6.0-8.3); Sodium 142 mmol/L (136-145)
[2018-03-28 10:20] LABS: CKMB 1.6 ng/mL (0-6.6); Troponin I Less than 0.010 ng/mL (< 0.028)
== END 2018-03-28 10:34 | disposition home or self-care (01) ==
LOC: ERS 09:23
DX: R06.02 Shortness of breath (principal); R05 Cough; I11.0 Hypertensive heart disease with heart failure; I50.9 Heart failure, unspecified; I43 Cardiomyopathy in diseases classified elsewhere; E78.5 Hyperlipidemia, unspecified; F17.210 Nicotine dependence, cigarettes, uncomplicated; E11.9 Type 2 diabetes mellitus without complications; Z79.899 Other long term (current) drug therapy; Z79.84 Long term (current) use of oral hypoglycemic drugs
CPT/HCPCS: 36415; 71045; 80053; 82553; 83880; 84484; 93005

== ENCOUNTER 2018-08-02 11:17 | Emergency (ER) | payer MEDICARE, MEDICAID ==
[2018-08-02] MEDS ORDERED: Ketorolac Tromethamine 30 MG/ML VIAL ONE (12:16)
== END 2018-08-02 12:55 | disposition home or self-care (01) ==
LOC: ERS 11:17
DX: R07.89 Other chest pain (principal); E11.9 Type 2 diabetes mellitus without complications; E78.5 Hyperlipidemia, unspecified; I11.0 Hypertensive heart disease with heart failure; I50.9 Heart failure, unspecified; F17.210 Nicotine dependence, cigarettes, uncomplicated; Z79.899 Other long term (current) drug therapy; Z79.84 Long term (current) use of oral hypoglycemic drugs; Z79.82 Long term (current) use of aspirin
CPT/HCPCS: 36415; 93005; 96374; J1885

== ENCOUNTER 2018-12-13 10:02 | Emergency (ER) | payer MEDICARE, MEDICAID | END 2018-12-13 10:46 | disposition home or self-care (01) | LOC: ERS 10:02 | DX: M25.551 Pain in right hip (principal); M25.552 Pain in left hip; E11.9 Type 2 diabetes mellitus without complications; E78.5 Hyperlipidemia, unspecified; I11.0 Hypertensive heart disease with heart failure; I50.9 Heart failure, unspecified; F17.210 Nicotine dependence, cigarettes, uncomplicated; Z79.84 Long term (current) use of oral hypoglycemic drugs; Z79.899 Other long term (current) drug therapy; Z79.891 Long term (current) use of opiate analgesic | CPT/HCPCS: 99281 ==

== ENCOUNTER 2019-06-19 07:08 | Emergency (ER) | payer MEDICARE, MEDICAID ==
[2019-06-19] MEDS ORDERED: Furosemide 40 MG/4 ML VIAL ONE ×2 (07:38→07:47)
[2019-06-19 08:22] LABS: Troponin I 0.036 ng/mL (< 0.028)
== END 2019-06-19 10:16 | disposition home or self-care (01) ==
LOC: ERS 07:08
DX: I11.0 Hypertensive heart disease with heart failure (principal); I50.9 Heart failure, unspecified; E11.9 Type 2 diabetes mellitus without complications; E78.5 Hyperlipidemia, unspecified; E78.00 Pure hypercholesterolemia, unspecified; I25.10 Atherosclerotic heart disease of native coronary artery without angina pectoris; F17.210 Nicotine dependence, cigarettes, uncomplicated; Z79.899 Other long term (current) drug therapy; Z79.82 Long term (current) use of aspirin; Z79.84 Long term (current) use of oral hypoglycemic drugs
CPT/HCPCS: 36415; 93005; 96374; J1940

== ENCOUNTER 2019-07-10 00:52 | Inpatient (IN) | payer MEDICARE, MEDICAID ==
[2019-07-10] MEDS ORDERED: Albuterol Sulfate 2.5 mg/3 ml Neb ONE (01:05)
[2019-07-10] MEDS ORDERED: Nitroglycerin 2% Ointment 1 INCH/1 GM Packet ONE (01:13)
[2019-07-10] MEDS ORDERED: Aspirin 325 MG TAB ONE (01:13)
[2019-07-10] MEDS ORDERED: Furosemide 40 MG/4 ML VIAL ONE (01:13)
[2019-07-10 01:14] LABS: Actual Bicarbonate (HCO3a) 25.3 mEq/L (22-28); Analyzer IN Cardio ER; Base Excess (BEa) 1.1 mEq/L (-2.0 to +3.0); CO2 Tension 38.9 mmHg (35.0-45.0); Calcium, Ionized 1.22 mmol/L (1.12-1.30); Carboxyhemoglobin (COHb) 0.8 gm% (0.0-3.0); O2 Tension (PaO2) 273.6 mmHg (> 80.0); Potassium - ABG Lab 3.52 mmol/L (3.70-5.30); pH, Arterial 7.43 (7.35-7.45)
[2019-07-10 01:46] LABS: #Basophils 0.1 thou/uL (0.0-0.2); #Eosinphils 0.2 thou/uL (0.0-0.7); #Lymphocytes 1.2 thou/uL (1.20-3.40); #Monocytes 0.3 thou/uL (0.11-0.59); #Neutrophils 8.7 thou/uL (1.40-6.50); %Basophils 0.6 % (0.0-1.0); %Eosinophils 1.8 % (0.0-10.0); %Monocytes 3.3 % (0.0-10.0); %Neutrophils 83.3 % (42.0-75.0); Hemoglobin 11.4 g/dL (12.0-16.0); Mean Corpuscular HGB CONC 30.8 g/dL (32.0-36.0); Mean Corpuscular Hemoglobin 28.9 pg (27.0-31.0); Platelet Count 285 thou/uL (130-400); RBC Distribution Width 14.3 % (11.5-14.5); Red Blood Cell (RBC) Count 3.92 mill/uL (4.20-5.40); White Blood Cell (WBC) Count 10.4 thou/uL (4.8-10.8)
[2019-07-10] MEDS ORDERED: Dexamethasone 10 MG/ML VIAL ONE (01:50)
[2019-07-10] MEDS ORDERED: Magnesium 2 GM/50 ML BAG (IN WATER) ONE (01:51)
[2019-07-10 01:54] LABS: Bilirubin Negative (Negative); Blood, Urine Negative (Negative); Clarity Clear (Clear); Glucose, Urine (Dipstick) 50 mg/dL (Negative); Leukocyte Negative Leu/uL (Negative); Nitrite Negative (Negative); Protein, Urine (Dipstick) 50 mg/dL (Neg-Trace); RBC/HPF 0-3 HPF (0-3); Squamous Epithelial 0-3 HPF (0-3); Urobilinogen Normal mg/dL (Less than 2); WBC/HPF 0-3 HPF (0-3)
[2019-07-10 01:55] LABS: Bacteria/HPF 1+ HPF (None Seen)
[2019-07-10 02:06] LABS: Acetaminophen Less than 6.0 mcg/mL (10.0-30.0); Alcohol Less than 10 mg/dL (Less than 10); Salicylate Less than 8.0 mg/dL (15.0-30.0)
[2019-07-10 02:08] LABS: ALT (SGPT) 17 U/L (8-55); AST (SGOT) 49 U/L (5-34); Albumin 3.9 g/dL (3.4-4.8); Alkaline Phosphatase 72 U/L (40-110); Anion Gap 13 mmol/L (10-20); BUN (Urea Nitrogen) 16 mg/dL (9.8-20.1); Bilirubin, Total 0.3 mg/dL (0.2-1.2); CK (CPK) 62 U/L (29-168); Calc. Creatinine Clearance 0 mL/min (70-130); Calcium 9.7 mg/dL (7.8-10.44); Carbon Dioxide 26 mmol/L (23-31); Chloride 109 mmol/L (98-107); Estimated GFR-MDRD 51; Globulin 4.4 g/dL (2.4-3.5); Glucose 116 mg/dL (80-115); Lipase 32 U/L (8-78); Potassium 3.7 mmol/L (3.5-5.1); Protein, Total 8.3 g/dL (6.0-8.3); Sodium 144 mmol/L (136-145)
[2019-07-10 02:10] LABS: Amphetamine Not Detected (NotDetected); Barbiturates Screen Not Detected (NotDetected); Benzodiazepine Screen Not Detected (NotDetected); Cocaine Metabolite Screen Detected (NotDetected); Medtox Control Line Valid? VALID (VALID); Medtox Reader # READER 4; Methadone Not Detected (NotDetected); Methamphetamine Not Detected (NotDetected); Opiate Screen Not Detected (NotDetected); Oxycodone Screen Not Detected (NotDetected); Phencyclidine (PCP) Not Detected (NotDetected); THC/Cannabinoid Screen Not Detected (NotDetected); Tricyclic Screen Not Detected (NotDetected)
[2019-07-10 02:11] LABS: Troponin I 0.018 ng/mL (< 0.028)
[2019-07-10 02:16] LABS: ALV-art Gradient 105.575 (0-20); Puncture Site LRA
[2019-07-10] MEDS ORDERED: Bisacodyl 5 MG TAB PO PRN (03:23)
[2019-07-10] MEDS ORDERED: Acetaminophen 325 MG TAB PO PRN (03:23)
[2019-07-10] MEDS ORDERED: Dextrose 5% in Water 1,000 ML IV PRN (03:26)
[2019-07-10] MEDS ORDERED: HumaLOG 300 UNITS/3 ML VIAL SC PRN (03:26)
[2019-07-10] MEDS ORDERED: Dextrose 50% Abboject 50 ML SYRINGE SLOW IVP PRN (03:26)
--- NOTE | 2019-07-10 04:37 | HP ---
PRIMARY CARE PROVIDER: Dr. Latosha Mcclellan. CHIEF COMPLAINT: Shortness of breath. HISTORY OF PRESENT ILLNESS: Ms. Mock is a pleasant 64-year-old lady, who was seen at [facility] on July 10, 2019. She reports that she was woken up from her sleep around 11:30 p.m. yesterday because of shortness of breath. She took 20 mg of oral furosemide and called 911 because it did not help with her breathing. When EMS presented, she was reportedly tripoding with a respiratory rate of 38 and in respiratory distress. She received 40 mg of Lasix, sublingual nitrate, and started on BiPAP. By the time I saw her, she reports feeling better. She is off BiPAP. Her survey chief is Dr. Harp. REVIEW OF SYSTEMS: All systems were reviewed and found to be negative except for the pertinent positives mentioned above. PAST MEDICAL HISTORY: Breast cancer status post chemotherapy, radiation and surgery, diabetes mellitus type 2, dyslipidemia, congestive heart failure, hypertension, chronic kidney disease stage 3. PAST SURGICAL HISTORY: Mastectomy, right-sided; hysterectomy; and esophageal dilatation. SOCIAL HISTORY: The patient reports drinking one beer every other day. She smokes half to one pack of cigarettes a day. She denies recreational drug use. ALLERGIES: RAHUL INHIBITORS AND ARB. HOME MEDICATIONS: 1. Protonix 40 mg daily. 2. Furosemide 40 mg 2 times a day. 3. Metformin 500 mg 2 times a day. 4. Isosorbide mononitrate 30 mg daily. 5. Aspirin 81 mg daily. 6. Coreg 6.25 mg 3 times a day. 7. Anastrozole 1 mg daily. 8. Potassium chloride 20 mEq daily. 9. Tylenol No. 3 p.r.n. 10. Atorvastatin 20 mg at bedtime. 11. Hydralazine 25 mg daily. PHYSICAL EXAMINATION: GENERAL: On examination, Ms. Mock is awake and alert, not in acute distress. VITAL SIGNS: Blood pressure is 120/83, pulse 72, respiratory rate 12, and oxygen saturation 100% on 2 L of oxygen. She is afebrile. EYES: No scleral icterus, no conjunctival pallor. ENT: Moist mucosal membranes. No oropharyngeal erythema or exudates. NECK: Supple, nontender, trachea is midline. She has jugular venous distention. RESPIRATORY: Accessory muscles of breathing are not active. Chest wall movements are symmetric bilaterally. Lung examination reveals bilateral crackles. CARDIOVASCULAR: S1 and S2 are heard, regular. Peripheral pulses palpable. ABDOMEN: Soft, nontender, bowel sounds are heard. NEUROLOGIC: Cranial nerves 2 through 12 are intact. Deep tendon reflexes 2+. MUSCULOSKELETAL: Power is 5/5 in all 4 extremities. SKIN: No rashes. LYMPHATIC: No cervical lymphadenopathy. PSYCHIATRIC: Normal mood, normal affect, patient is oriented to person, place, and time. LABORATORY DATA: Ms. Mock' labs and investigations were reviewed. I reviewed her electrocardiogram, which shows normal sinus rhythm, she also has occasional premature ventricular complexes. I also reviewed her chest x-ray, which shows interstitial edema. She has normal white count, normocytic anemia with hemoglobin 11.4, normal platelet count, normal sodium, normal potassium, normal blood urea nitrogen, elevated creatinine of 1.28, it was 0.94 on June 19, 2019, and 1.11 on August 02, 2018. Lactic acid is normal at 1.6. AST is mildly elevated at 49. LFTs are otherwise unremarkable. Troponin I is normal. BNP is elevated at 1517. Urinalysis is negative for nitrite and leukocyte esterase. Urine toxicology screen is positive for cocaine metabolites. ASSESSMENT AND PLAN: Ms. Mock is a pleasant 64-year-old lady, who was seen at [facility] on July 10, 2019. Her problem list includes: 1. Acute on chronic systolic and diastolic congestive heart failure exacerbation, [place] Heart Association class III. She is presenting with congestive heart failure exacerbation. Her left ventricular ejection fraction was 30% to 35% on January 15, 2019, and she also had diastolic dysfunction at that time. She will be admitted to the hospital for further management. She will receive intravenous diuretics. Cardiology Service will be consulted. It is unclear whether she had any recent echocardiogram through her survey chief office. If not, she may need a 2D echocardiogram during this hospitalization. Further management depending on clinical response. 2. Diabetes mellitus type 2: Start Accu-Cheks and insulin sliding scale. 3. Gastroesophageal reflux disease: Continue Protonix. 4. Dyslipidemia: Continue atorvastatin. 5. History of breast cancer: Continue anastrozole. Many thanks for allowing me to participate in your patient's care. Please feel free to contact me with any questions or concerns. LEVEL OF RISK: High. LEVEL OF COMPLEXITY: High. Cardiology Service will be consulted during this hospitalization for opinion and help with management. Job ID: [id number]
[2019-07-10 05:25] VITALS: BMI 24.8
[2019-07-10] MEDS ORDERED: Sodium Chloride 0.9% 100 ML ONE (05:51)
[2019-07-10 06:19] LABS: Anion Gap 16 mmol/L (10-20); BUN (Urea Nitrogen) 15 mg/dL (9.8-20.1); Calc. Creatinine Clearance 50 mL/min (70-130); Calcium 9.4 mg/dL (7.8-10.44); Carbon Dioxide 28 mmol/L (23-31); Chloride 103 mmol/L (98-107); Estimated GFR-MDRD 58; Glucose 182 mg/dL (80-115); Potassium 3.5 mmol/L (3.5-5.1); Sodium 143 mmol/L (136-145)
[2019-07-10 06:23] LABS: Troponin I 0.028 ng/mL (< 0.028)
[2019-07-10] MEDS: Nicotine 21 MG PATCH TD SCH (06:27)
[2019-07-10] MEDS: Furosemide 40 MG/4 ML VIAL SLOW IVP SCH ×2 (06:27→14:35)
--- NOTE | 2019-07-10 07:54 | RAD ---
FRONTAL RADIOGRAPH CHEST PORTABLE UPRIGHT: DATE: 07/10/2019. COMPARISON: 06/19/2019. HISTORY: Shortness of breath/dyspnea. FINDINGS: Stable prominence of the cardiac silhouette. Mild increased linear density in the medial left base, likely on the basis of volume loss or scar. Mild basilar infiltrate medially on the left cannot be e xcluded. There is atherosclerotic calcification in the aortic arch. Mild stable pulmonary vasculatu re prominence. IMPRESSION: No focal consolidation or alveolar edema. POS: SHANE
[2019-07-10 08:01] LABS: Troponin I 0.027 ng/mL (< 0.028)
[2019-07-10] MEDS: Carvedilol 3.125 MG TAB PO SCH ×2 (08:23→17:24)
[2019-07-10] MEDS: Atorvastatin Calcium 20 MG TAB PO SCH (08:23)
[2019-07-10] MEDS: Aspirin 81 mg Enteric Coated Tablet PO SCH (08:23)
[2019-07-10] MEDS: metFORMIN 500 MG TAB PO SCH (08:23)
[2019-07-10] MEDS: hydrALAZINE 25 MG TAB PO SCH ×3 (08:23→20:50)
--- NOTE | 2019-07-10 20:06 | CON ---
DATE OF CONSULTATION: HISTORY OF PRESENT ILLNESS: Ya Mock is a pleasant 64-year-old black female, who is followed by Dr. Harp in the past. She was first evaluated in December 2011 when she was found on echo to have ejection fraction of 35% to 40%. She underwent cardiac catheterization and had no significant coronary artery disease. She has been treated medically since that time, but was not seen by Dr. Harp again until December 2017. She presented here one week after she had been hospitalized at [facility] for heart failure type symptoms and complained of shortness of breath. She again underwent cardiac catheterization and was found to have a 30% left circumflex lesion and a 20% stenosis in the mid RCA. Echo revealed ejection fraction of 30% to 35% with evidence of diastolic dysfunction. V/Q scan was low probability for pulmonary embolism. She was treated with a LifeVest at the time of discharge. She has been followed in the office since that time. An echo in May 2018 revealed ejection fraction of 40% to 45% with mild mitral regurgitation, mild tricuspid regurgitation, and evidence for diastolic dysfunction. Apparently, her LifeVest was discontinued at that time. She was last seen in the office on May 24, 2019, and had no complaints over the previous 6 months for shortness of breath. She has continued to do well and denies any symptoms at all until last night at approximately 11 p.m. She was asleep and awoke to go to the bathroom when she went back to bed, had acute onset of dyspnea and had difficulty in catching of breath. She took furosemide 20 mg, had no improvement in her dyspnea and called EMS. The respiratory rate was apparently 38 per minute when they arrived. She received Lasix 40 mg IV, sublingual nitroglycerin, started on BiPAP. The BiPAP was eventually discontinued. She denied any chest discomfort during any of this time. At the present time, she has no complaints. PAST MEDICAL HISTORY: Chronic systolic heart failure, hypertension, hyperlipidemia, smoker, ductal cell carcinoma of the right breast, chronic kidney disease stage 3, and diabetes. OPERATIONS: Right mastectomy, hysterectomy, esophageal dilatation. MEDICATIONS: 1. Aspirin 81 daily. 2. Atorvastatin 20 daily. 3. Carvedilol 6.25 b.i.d. 4. Furosemide 40 mg b.i.d. 5. Hydralazine 25 daily. 6. Isosorbide mononitrate 30 daily. 7. Metformin 500 b.i.d. 8. Protonix 40 daily. ALLERGIES: RAHUL INHIBITOR CAUSES LIP EDEMA, ARB DRUGS CAUSE A TINGLING TONGUE. SOCIAL HISTORY: She continues to smoke more than 1/2 pack per day. She has 1 to 2 beers per day. REVIEW OF SYSTEMS: A 10-point review of systems is otherwise unremarkable. PHYSICAL EXAMINATION: VITAL SIGNS: Blood pressure 131/71, pulse of 65. HEENT: PERRL. NECK: Supple. CHEST: Clear. CARDIAC: S1 and S2 normal without any S3, S4, or murmurs. ABDOMEN: Normal bowel sounds without tenderness. EXTREMITIES: Revealed no edema. NEUROLOGIC: Grossly intact. SKIN: Warm and dry. LABORATORY DATA: EKG revealed normal sinus rhythm with PVC, lateral T-wave changes. She also has episodes of nonsustained wide-complex tachycardia. Chest x-ray; mild increased pulmonary vascularity. Sodium 143, potassium 3.5, chloride 103, carbon dioxide 28, BUN 15, creatinine 1.14. Troponin I is normal x3. IMPRESSION: 1. Acute on chronic systolic heart failure, last ejection fraction of 40% to 45 % in May 2018. 2. Hypertension. 3. Hyperlipidemia. 4. The patient continues to smoke. 5. Diabetes. 6. Mild coronary artery disease on catheterization in 2018. 7. Wide complex tachycardia. PLAN: The patient will continue to be diuresed. Fasting lipid profile will be obtained. Echocardiogram will be performed. Job ID: [id number] MTDD
[2019-07-11 04:45] LABS: Anion Gap 13 mmol/L (10-20); BUN (Urea Nitrogen) 24 mg/dL (9.8-20.1); Calc. Creatinine Clearance 59 mL/min (70-130); Calcium 9.5 mg/dL (7.8-10.44); Carbon Dioxide 28 mmol/L (23-31); Cardiac Risk 2.7 (Less than 4.5); Chloride 103 mmol/L (98-107); Cholesterol 190 mg/dl (< 200 Desired); Estimated GFR-MDRD 70; Glucose 95 mg/dL (80-115); HDL Cholesterol 71 mg/dL (>60 Neg Risk); LDL Cholesterol, Calculated 99 mg/dL; Potassium 3.3 mmol/L (3.5-5.1); Sodium 141 mmol/L (136-145); Triglycerides 98 mg/dL (Less than 150)
[2019-07-11] MEDS ORDERED: Simethicone Chewable 80 MG TAB PO PRN (04:47)
[2019-07-11] MEDS: Furosemide 40 MG/4 ML VIAL SLOW IVP SCH ×2 (05:05→13:41)
[2019-07-11] MEDS: Nicotine 21 MG PATCH TD SCH (05:05)
[2019-07-11] MEDS ORDERED: Potassium Chloride 20 MEQ TAB PO SCH (08:30)
[2019-07-11] MEDS: hydrALAZINE 25 MG TAB PO SCH ×3 (08:33→20:51)
[2019-07-11] MEDS: Carvedilol 3.125 MG TAB PO SCH ×2 (08:33→18:19)
[2019-07-11] MEDS: metFORMIN 500 MG TAB PO SCH (08:33)
[2019-07-11] MEDS: Aspirin 81 mg Enteric Coated Tablet PO SCH (08:33)
[2019-07-11] MEDS: Atorvastatin Calcium 20 MG TAB PO SCH (08:33)
--- NOTE | 2019-07-11 14:15 | CON ---
DATE OF CONSULTATION: 07/11/2019 SUBJECTIVE: Ms. Mock is doing well. She feels much better. She states she is back to baseline. She has diuresed off the Lasix. Unfortunately, she is continuing to smoke. OBJECTIVE: VITAL SIGNS: Blood pressure 115/68, pulse 76, and temp 98.3. LUNGS: Clear to auscultation. HEART: Regular rate and rhythm. ABDOMEN: Soft, nontender, and nondistended. EXTREMITIES: No edema. PERTINENT LABORATORY DATA: Hemoglobin 11.4, hematocrit 36.9, and creatinine 0.97. IMPRESSION: 1. Acute on chronic systolic heart failure. 2. Tobacco abuse. 3. Mild coronary artery disease. RECOMMENDATIONS: 1. Review echo. 2. Continue carvedilol, atorvastatin, and low-dose aspirin. 3. Discussed the importance of cessation of tobacco products. 4. The patient's LVEF has been estimated at 35 to 45 over the last several years. She likely is still within that range. We will review her echo for further recommendations. She is near her baseline. We would recommend changing Lasix to p.o. Job ID: [id number]
--- NOTE | 2019-07-11 20:57 | PDOC.HOSPP ---
- Subjective Encounter Date: 07/11/19 Encounter Time: 10:00 Subjective: No overnight events. This morning, continues to feel well and at baseline. has no complaints. - Objective Vital Signs & Weight: Vital Signs (12 hours) Temp Pulse Pulse Pulse Resp BP BP 07/11/19 20:51 67 07/11/19 20:00 98.4 F 67 16 07/11/19 14:50 97.9 F 85 15 07/11/19 13:40 07/11/19 11:24 98.3 F 76 19 07/11/19 09:00 86 68 127/60 133/63 BP Pulse Ox Pulse Ox Pulse Ox 07/11/19 20:51 07/11/19 20:00 124/81 99 07/11/19 14:50 123/79 97 07/11/19 13:40 115/68 07/11/19 11:24 126/70 99 07/11/19 09:00 100 100 Weight Weight 140 lb 3.2 oz I&O: 07/10/19 07/11/19 07/12/19 06:59 06:59 06:59 Intake Total 304 1940 1680 Output Total 700 1800 Balance -733 799 8946 Result Diagrams: 07/10/19 01:33 07/11/19 04:04 Additional Labs: Accuchecks 07/11/19 07/11/19 07/11/19 16:36 10:45 05:33 POC Glucose 152 H 105 136 H Hospitalist ROS - Review of Systems Constitutional: denies: fever, chills, sweats, weakness, malaise, other Respiratory: denies: cough, dry, shortness of breath, hemoptysis, SOB with excertion, pleuritic pain, sputum, wheezing, other Cardiovascular: denies: chest pain, palpitations, orthopnea, paroxysmal noc. dyspnea, edema, light headedness, other Gastrointestinal: denies: nausea, vomiting, abdominal pain, diarrhea, constipation, melena, hematochezia, other Genitourinary: denies: dysuria, frequency, incontinence, hematuria, retention, other - Medication Medications: Active Medications Generic Name Dose Route Start Last Admin Trade Name Freq PRN Reason Stop Dose Admin Aspirin 81 mg 07/10/19 09:00 07/11/19 08:33 Ecotrin PO 81 mg DAILY TRE Administration Atorvastatin Calcium 20 mg 07/10/19 09:00 07/11/19 08:33 Lipitor PO 20 mg DAILY TRE Administration Carvedilol 3.125 mg 07/10/19 08:00 07/11/19 18:19 Coreg PO 3.125 mg BID-WM TRE Administration Hydralazine HCl 25 mg 07/10/19 09:00 07/11/19 20:51 Apresoline PO 25 mg TID TRE Administration Metformin HCl 500 mg 07/10/19 08:00 07/11/19 08:33 Glucophage PO 500 mg QAM-WM TRE Administration Nicotine 21 mg 07/10/19 04:00 07/11/19 05:05 Nicoderm Patch TD 21 mg Q24HR TRE Administration Simethicone 80 mg 07/11/19 04:47 07/11/19 05:05 Mylicon Chewable PO 80 mg Q6H PRN Administration Gas Pain - Exam General Appearance: NAD, awake alert Neck: supple, symmetric, no JVD, no thyromegaly, no lymphadenopathy, no carotid bruit Heart: RRR, no murmur, no gallops, no rubs, normal peripheral pulses Respiratory: CTAB, no wheezes, no rales, no ronchi, normal chest expansion, no tachypnea, normal percussion Gastrointestinal: soft, non-tender, non-distended, normal bowel sounds, no palpable masses, no hepatomegaly, no splenomegaly, no bruit Neurological: cranial nerve grossly intact, normal sensation to touch, no weakness, no focal deficits, no new deficit Hosp A/P - Plan old records reviewed/req 1. decompensated mixed HF NYHA IIIC. At baseline function and breathing. nearly euvolemic. reduced lasix to 20mg PO qd. Echo showing EF 20-25 . QRS duration normal. Pending cardiology evaluation for possible ICD placement. 2. Nonsustanined Vtach (07/11) - had a 10-beat VT. will continue to follow 2. Diabetes mellitus type 2. continue current management 3. Gastroesophageal reflux disease: Continue Protonix. 4. Dyslipidemia: Continue atorvastatin. 5. History of breast cancer: Continue anastrozole.
[2019-07-12 05:09] LABS: Anion Gap 12 mmol/L (10-20); BUN (Urea Nitrogen) 29 mg/dL (9.8-20.1); Calc. Creatinine Clearance 58 mL/min (70-130); Calcium 9.4 mg/dL (7.8-10.44); Carbon Dioxide 26 mmol/L (23-31); Chloride 105 mmol/L (98-107); Estimated GFR-MDRD 68; Glucose 98 mg/dL (80-115); Potassium 4.2 mmol/L (3.5-5.1); Sodium 139 mmol/L (136-145)
[2019-07-12] MEDS: Nicotine 21 MG PATCH TD SCH (05:39)
[2019-07-12] MEDS: Furosemide 20 MG TAB PO SCH (08:11)
[2019-07-12] MEDS: hydrALAZINE 25 MG TAB PO SCH ×3 (08:11→20:12)
[2019-07-12] MEDS: Atorvastatin Calcium 20 MG TAB PO SCH (08:11)
[2019-07-12] MEDS: Carvedilol 3.125 MG TAB PO SCH ×2 (08:11→16:46)
[2019-07-12] MEDS: Aspirin 81 mg Enteric Coated Tablet PO SCH (08:11)
[2019-07-12] MEDS: metFORMIN 500 MG TAB PO SCH (08:11)
--- NOTE | 2019-07-12 11:26 | PDOC.CPN ---
- Subjective Date: 07/12/19 Time: 11:24 Interval history: Patient with c/o SOB last night. Just walked entire smith with me at moderate pace and no symptoms. ECHO reviewed and EF down to 25% - Review of Systems General: denies: fever/chills, weight/appetite/sleep changes, night sweats, fatigue Respiratory: reports: shortness of breath Cardiovascular: denies: chest pain, palpitation, edema, paroxysmal nocturnal dyspnea, orthopnea Gastrointestinal: denies: nausea, vomiting, diarrhea, constipation, abd pain, GI bleeding Musculoskeletal: denies: pain, tenderness, stiffness, swelling, arthritis/ arthralgias Neurological: denies: numbness, syncope, seizure, weakness - Objective Allergies/Adverse Reactions: Allergies Allergy/AdvReac Type Severity Reaction Status Date / Time RAHUL Inhibitors Allergy Intermediate Swollen Verified 01/14/18 21:57 Lips ARB-Angiotensin Receptor Allergy tingling Verified 01/17/18 13:10 Antagonist tongue Visit Medications: Current Medications Acetaminophen (Tylenol) 650 mg PO Q4H PRN PRN Reason: Headache/Fever/Mild Pain (1-3) Albuterol/Ipratropium (Duoneb) 3 ml NEB Q6H PRN PRN Reason: SOB &/or Wheezing Aspirin (Ecotrin) 81 mg PO DAILY [facility] Last Admin: 07/12/19 08:11 Dose: 81 mg Atorvastatin Calcium (Lipitor) 20 mg PO DAILY [facility] Last Admin: 07/12/19 08:11 Dose: 20 mg Bisacodyl (Dulcolax) 10 mg PO DAILYPRN PRN PRN Reason: Constipation Carvedilol (Coreg) 3.125 mg PO BID-[facility] Last Admin: 07/12/19 08:11 Dose: 3.125 mg Dextrose/Water (Dextrose 50%) 25 gm SLOW IVP PRN PRN PRN Reason: Hypoglycemia Furosemide (Lasix) 20 mg PO DAILY [facility] Last Admin: 07/12/19 08:11 Dose: 20 mg Glucagon (Glucagon) 1 mg IM PRN PRN PRN Reason: Hypoglycemia Hydralazine HCl (Apresoline) 25 mg PO TID [facility] Last Admin: 07/12/19 08:11 Dose: 25 mg Dextrose/Water (D5w) 1,000 mls @ 0 mls/hr IV .Q0M PRN PRN Reason: Hypoglycemia Insulin Human Lispro (Humalog) 0 units SC .MILD SLIDING SCALE PRN PRN Reason: Mild Correctional Scale Metformin HCl (Glucophage) 500 mg PO QAM-WM [facility] Last Admin: 07/12/19 08:11 Dose: 500 mg Nicotine (Nicoderm Patch) 21 mg TD Q24HR [facility] Last Admin: 07/12/19 05:39 Dose: 21 mg Simethicone (Mylicon Chewable) 80 mg PO Q6H PRN PRN Reason: Gas Pain Last Admin: 07/11/19 05:05 Dose: 80 mg Vital Signs & Weight: Vital Signs Temp Pulse Resp BP Pulse Ox 07/12/19 11:02 98.0 F 83 16 140/85 98 07/12/19 07:30 98.5 F 63 17 137/81 99 07/12/19 03:12 98.1 F 66 18 113/74 98 Weight 140 lb 3.2 oz - Physical Exam General: alert & oriented x3, appears well HEENT: mucus membranes moist Neck: supple neck Cardiac: regular rate and rhythm Lungs: clear to auscultation Neuro: grossly intact Extremities: no cyanosis, no clubbing Skin: clear Musculoskeletal: normal range of motion - Labs Result Diagrams: 07/10/19 01:33 07/12/19 04:10 Troponin/CKMB CK-MB (CK-2) 1.0 ng/mL (0-6.6) 07/10/19 01:33 Troponin I 0.027 ng/mL (< 0.028) 07/10/19 07:24 - Assessment/Plan Assessment/Plan: 1. Acute on chronic systolic CHF 2. HTN 3. Dilated TUBE HAND[employer]ER Discussed option of LifeVest and risk of SCD. Patient wants to proceed with Vest. Will order today. D/C once placed.
--- NOTE | 2019-07-12 11:36 | PQF ---
Please address with ER physician CLINICAL DOCUMENTATION IMPROVEMENT CLARIFICATION FORM: ICD-10 Updated PLEASE DO AN ADDENDUM TO THE PROGRESS NOTE WITH ANY DOCUMENTATION UPDATES OR ADDITIONS AND CARRY THROUGH TO DC SUMMARY. THANK YOU. DATE: 07/12/19 ATTN: DR. JAMIL Please exercise your independent, professional judgment in responding to the clarification form. Clinical indicators are provided on the bottom of this form for your review Please check appropriate box(s): [ ] Acute Respiratory Failure: [ ] with Hypoxia[ ] with Hypercapnia [ ] Acute On Chronic Respiratory Failure: [ ] with Hypoxia [ ] with Hypercapnia [ ] Acute Respiratory Failure due to: (etiology) [ ] ARDS (Acute Respiratory Distress Syndrome) [ ] Chronic Respiratory Failure only [ ] with Hypoxia [ ] with Hypercapnia [ ] Respiratory Insufficiency [ ] Hypoxia [] Other diagnosis _respiratory distress_ [ ] Unable to determine In addition, please specify: Present on Admission (POA): [ ] Yes [ ] No [ ] Unable to determine For continuity of documentation, please document condition throughout progress notes and discharge summary. Thank You. CLINICAL INDICATORS - SIGNS / SYMPTOMS / LABS / RESULTS AND LOCATION IN MR ER NOTE: "EMS REPORTS SHE WAS TRIPODDING WITH RR 38 ON PRESENTATION, 91% IN ROOM AIR , IN OBVIOUS DISTRESS." "PATIENT HAS LIFE-THREATENING HYPOXIA" RR 28 PO2 07/10: 273.6 RISKS: COPD (ER NOTE ) CHF EXACERBATION (ER NOTE) COCAINE ABUSE (ER NOTE) TREATMENT: IV DECADRON (ER) IV MAG SULFATE (ER) IV LASIX (ER) PO LASIX (START 07/12) DUONEBS (ER) ALBUTEROL NEBS (ER-PRESENT) BIPAP TELEMETRY MONITORING ABGS 07/10 Acute Respiratory Failure: ABG pH < 7.35 or > 7.45; Decreased oxygen saturation (<90% room air or < 95% on oxygen); PCO2 > 50 mm Hg; PO2 < 60 mm Hg; Labored or rapid respirations ARDS: Dx Criteria [[place] ARDS]: Respiratory symptoms within one week of a known clinical insult (e.g. shock, infection, surgery, trauma) Bilateral opacities in CXR/Chest CT not due to CHF or fluid (This form is maintained as a part of the permanent medical record) 2014 [employer]. All Rights Reserved [email or web address] [email or web address] Office: [phone] [facility]
--- NOTE | 2019-07-12 12:00 | PDOC.HOSPP ---
- Subjective Encounter Date: 07/12/19 Encounter Time: 10:00 Subjective: no overnight events. Patient walking down the smith with no shortness of breath or chest pain, lightheadedness. Requests to leave but requested to stay for possible AICD/life vest placement. Will discontinue discharge if cardiology agrees and patient adheres. - Objective Vital Signs & Weight: Vital Signs (12 hours) Temp Pulse Resp BP Pulse Ox 07/12/19 11:02 98.0 F 83 16 140/85 98 07/12/19 07:30 98.5 F 63 17 137/81 99 07/12/19 03:12 98.1 F 66 18 113/74 98 Weight Weight 140 lb 3.2 oz I&O: 07/11/19 07/12/19 07/13/19 06:59 06:59 06:59 Intake Total 1940 1920 Output Total 1800 700 Balance 140 1220 Result Diagrams: 07/10/19 01:33 07/12/19 04:10 Additional Labs: Accuchecks 07/12/19 07/12/19 07/11/19 10:53 05:29 20:22 POC Glucose 76 97 145 H 07/11/19 16:36 POC Glucose 152 H Hospitalist ROS - Review of Systems Constitutional: denies: fever, chills, sweats, weakness, malaise, other Eyes: denies: pain, vision change, conjunctivae inflammation, eyelid inflammation, redness, other Respiratory: denies: cough, dry, shortness of breath, hemoptysis, SOB with excertion, pleuritic pain, sputum, wheezing, other Cardiovascular: denies: chest pain, palpitations, orthopnea, paroxysmal noc. dyspnea, edema, light headedness, other Gastrointestinal: denies: nausea, vomiting, abdominal pain, diarrhea, constipation, melena, hematochezia, other - Medication Medications: Active Medications Generic Name Dose Route Start Last Admin Trade Name Freq PRN Reason Stop Dose Admin Aspirin 81 mg 07/10/19 09:00 07/12/19 08:11 Ecotrin PO 81 mg DAILY TRE Administration Atorvastatin Calcium 20 mg 07/10/19 09:00 07/12/19 08:11 Lipitor PO 20 mg DAILY TRE Administration Carvedilol 3.125 mg 07/10/19 08:00 07/12/19 08:11 Coreg PO 3.125 mg BID-WM TRE Administration Furosemide 20 mg 07/12/19 09:00 07/12/19 08:11 Lasix PO 20 mg DAILY TRE Administration Hydralazine HCl 25 mg 07/10/19 09:00 07/12/19 08:11 Apresoline PO 25 mg TID TRE Administration Metformin HCl 500 mg 07/10/19 08:00 07/12/19 08:11 Glucophage PO 500 mg QAM-WM TRE Administration Nicotine 21 mg 07/10/19 04:00 07/12/19 05:39 Nicoderm Patch TD 21 mg Q24HR TRE Administration Simethicone 80 mg 07/11/19 04:47 07/11/19 05:05 Mylicon Chewable PO 80 mg Q6H PRN Administration Gas Pain - Exam General Appearance: NAD, awake alert Neck: supple, symmetric, no JVD, no thyromegaly, no lymphadenopathy, no carotid bruit Heart: RRR, no murmur, no gallops, no rubs, normal peripheral pulses Respiratory: CTAB, no wheezes, no rales, no ronchi, normal chest expansion, no tachypnea, normal percussion Gastrointestinal: soft, non-tender, non-distended, normal bowel sounds, no palpable masses, no hepatomegaly, no splenomegaly, no bruit Hosp A/P - Plan 1. decompensated mixed HF NYHA IIIC. At baseline function and breathing. nearly euvolemic. reduced lasix to 20mg PO qd. Echo showing EF 20-25 . QRS duration normal. Pending cardiology evaluation for possible life vest/ ICD placement. 2. Nonsustanined Vtach (07/11) - had a 10-beat VT. No such episodes since 2. Diabetes mellitus type 2. continue current management 3. Gastroesophageal reflux disease: Continue Protonix. 4. Dyslipidemia: Continue atorvastatin. 5. History of breast cancer: Continue anastrozole.
[2019-07-13 05:04] LABS: Anion Gap 11 mmol/L (10-20); BUN (Urea Nitrogen) 30 mg/dL (9.8-20.1); Calc. Creatinine Clearance 70 mL/min (70-130); Calcium 9.2 mg/dL (7.8-10.44); Carbon Dioxide 28 mmol/L (23-31); Chloride 104 mmol/L (98-107); Estimated GFR-MDRD 85; Glucose 80 mg/dL (80-115); Potassium 3.8 mmol/L (3.5-5.1); Sodium 139 mmol/L (136-145)
[2019-07-13] MEDS: Nicotine 21 MG PATCH TD SCH (05:16)
[2019-07-13 07:43] VITALS: BP 143/75; TEMP 97.9
[2019-07-13] MEDS: Aspirin 81 mg Enteric Coated Tablet PO SCH (08:37)
[2019-07-13] MEDS: Furosemide 20 MG TAB PO SCH (08:37)
[2019-07-13] MEDS: Atorvastatin Calcium 20 MG TAB PO SCH (08:37)
[2019-07-13] MEDS: hydrALAZINE 25 MG TAB PO SCH (08:37)
[2019-07-13] MEDS: metFORMIN 500 MG TAB PO SCH (08:38)
[2019-07-13] MEDS: Carvedilol 3.125 MG TAB PO SCH (08:38)
--- NOTE | 2019-07-13 09:19 | PQF ---
As previously stated, the undermentioned diagnosis was stated by ER physicians, not me. By the time the patient arrived to me, she had no respiratory failure. Therefore, it would be best to address this issue with the ER physician who made the diagnosis.Because based on undermentioned, she was not in life threatening hypoxia because there was no hypoxia. Therefore, ER physician should clarify. CLINICAL DOCUMENTATION IMPROVEMENT CLARIFICATION FORM: ICD-10 Updated PLEASE DO AN ADDENDUM TO THE PROGRESS NOTE WITH ANY DOCUMENTATION UPDATES OR ADDITIONS AND CARRY THROUGH TO DC SUMMARY. THANK YOU. DATE: 07/13/19 ATTN: DR. JAMIL Please exercise your independent, professional judgment in responding to the clarification form. Clinical indicators are provided on the bottom of this form for your review Please check appropriate box(s): [ ] Acute Respiratory Failure: [ ] with Hypoxia[ ] with Hypercapnia [ ] Acute On Chronic Respiratory Failure: [ ] with Hypoxia [ ] with Hypercapnia [ ] Acute Respiratory Failure due to: (etiology) [ ] ARDS (Acute Respiratory Distress Syndrome) [ ] Chronic Respiratory Failure only [ ] with Hypoxia [ ] with Hypercapnia [ ] Respiratory Insufficiency [ ] Hypoxia [ ] Other diagnosis [ ] Unable to determine In addition, please specify: Present on Admission (POA): [ ] Yes [ ] No [ ] Unable to determine For continuity of documentation, please document condition throughout progress notes and discharge summary. Thank You. CLINICAL INDICATORS - SIGNS / SYMPTOMS / LABS / RESULTS AND LOCATION IN MR ER NOTE: "EMS REPORTS SHE WAS TRIPODDING WITH RR 38 ON PRESENTATION, 91% IN ROOM AIR , IN OBVIOUS DISTRESS." "PATIENT HAS LIFE-THREATENING HYPOXIA" RR 28 PO2 07/10: 273.6 RISKS: COPD (ER NOTE ) CHF EXACERBATION (ER NOTE) COCAINE ABUSE (ER NOTE) TREATMENT: IV DECADRON (ER) IV MAG SULFATE (ER) IV LASIX (ER) PO LASIX (START 07/12) DUONEBS (ER) ALBUTEROL NEBS (ER-PRESENT) BIPAP TELEMETRY MONITORING ABGS 07/10 Acute Respiratory Failure: ABG pH < 7.35 or > 7.45; Decreased oxygen saturation (<90% room air or < 95% on oxygen); PCO2 > 50 mm Hg; PO2 < 60 mm Hg; Labored or rapid respirations ARDS: Dx Criteria [[place] ARDS]: Respiratory symptoms within one week of a known clinical insult (e.g. shock, infection, surgery, trauma) Bilateral opacities in CXR/Chest CT not due to CHF or fluid (This form is maintained as a part of the permanent medical record) 2014 [employer]. All Rights Reserved [email or web address] [email or web address] Office: [phone] [facility]
--- NOTE | 2019-07-14 15:10 | DIS ---
DATE OF ADMISSION: 07/10/2019 DATE OF DISCHARGE: 07/13/2019 HISTORY OF PRESENT ILLNESS: Ms. Nish Pandya is a 64-year-old female who presented with acute shortness of breath. She was found to have hypervolemia and was diagnosed with decompensated mixed heart failure, NYHA IIIC. During her inpatient stay, she was diuresed and improved the day following to admission. Echocardiography showed a reduced ejection fraction of 20% to 25%, so the patient was evaluated by Cardiology and was treated with a LifeVest. On the day of discharge, she was hemodynamically stable. PHYSICAL EXAMINATION: VITAL SIGNS: Unremarkable. GENERAL: She was in no apparent distress. Awake and alert. NECK: Showed no JVD. CARDIAC EXAMINATION: Regular rate and rhythm. No murmurs, gallops, or rubs. RESPIRATORY: Clear to auscultation bilaterally. No wheezing, no rales, no rhonchi. GASTROINTESTINAL: Soft, nontender, and nondistended. Normal bowel sounds. PSYCHIATRIC: Proper mood and affect. Alert and oriented x3. ASSESSMENT AND PLAN: Ms. Mock is a 64-year-old female with a medical history of mixed heart failure, who presented with decompensated heart failure. 1. Decompensated mixed heart failure, NYHA stage IIIC. 2. The patient presented with shortness of breath and was found to have pulmonary congestion. She was diuresed and the day following hospitalization had already showed improvement. Prior to discharge, she was walking up and down the halls without shortness of breath. Echocardiography showed an ejection fraction of 20% to 25% and there was an indication for LifeVest, which was administered to the patient prior to discharge. She will be followed up by Cardiology as an outpatient. 3. Nonsustained ventricular tachycardia. The patient had 10 beats of ventricular tachycardia during her second day of hospitalization. She had no such episodes thereafter. Will be followed by Cardiology. 4. Type 2 diabetes. The patient's blood glucose levels were well controlled during her inpatient stay using her home regimen. Job ID: [id number]
--- NOTE | 2019-07-17 12:31 | DIS ---
DATE OF ADMISSION: 07/10/2019 DATE OF DISCHARGE: 07/13/2019 HOSPITAL COURSE: Ms. Ya Mock is a 64-year-old lady with a medical history of heart failure with reduced ejection fraction, CKD 3, and hypertension, who presented due to acute shortness of breath. She was treated for decompensated heart failure with reduced ejection fraction and acute hypoxic respiratory distress. Treatments include BiPAP and then oxygen supplementation, as well as diuresis. Echocardiography show an ejection fraction of 25% to 30%, so Cardiology fitted the patient with a LifeVest. Following diuresis, the patient's symptoms have resolved and she ambulated without any shortness of breath. PHYSICAL EXAMINATION: VITAL SIGNS: On the day of discharge, she was hemodynamically stable. Vitals were unremarkable. GENERAL: She was in no apparent distress. Alert and oriented x3. CARDIAC: Regular rate and rhythm. No murmurs, no gallops, no rubs. Normal peripheral pulses. RESPIRATORY: Clear to auscultation bilaterally. No wheezes, no rales, no rhonchi. No tachypnea. GASTROINTESTINAL: Soft, nontender, and nondistended. Normal bowel sounds. ASSESSMENT AND PLAN: 1. Ms. oMck is a 64-year-old female, who presented with decompensated heart failure with reduced ejection fraction. The patient was treated with Lasix and improved promptly. Echocardiography showed ejection fraction of 35% and QRS duration was normal, so Cardiology placed a LifeVest on the patient. 2. Type 2 diabetes mellitus. The patient was managed via sliding scale throughout inpatient stay and blood glucose was within goal throughout the stay. Job ID: [id number] MTDD
== END 2019-07-13 10:30 | disposition home or self-care (01) | DRG 291 ==
LOC: ERS 00:52 → 2NO 03:03
PROVIDERS: ADMIT Internal Medicine; ATTEND Internal Medicine
DX: I13.0 Hypertensive heart and chronic kidney disease with heart failure and stage 1 through stage 4 chronic kidney disease, or unspecified chronic kidney disease (principal); I50.43 Acute on chronic combined systolic (congestive) and diastolic (congestive) heart failure; I47.2 Ventricular tachycardia; I47.0 Re-entry ventricular arrhythmia; E78.5 Hyperlipidemia, unspecified; F17.210 Nicotine dependence, cigarettes, uncomplicated; K21.9 Gastro-esophageal reflux disease without esophagitis; R06.03 Acute respiratory distress; R09.02 Hypoxemia; Z79.82 Long term (current) use of aspirin; Z79.84 Long term (current) use of oral hypoglycemic drugs; Z79.899 Other long term (current) drug therapy; Z85.3 Personal history of malignant neoplasm of breast; Z88.8 Allergy status to other drugs, medicaments and biological substances; Z90.11 Acquired absence of right breast and nipple; I42.0 Dilated cardiomyopathy; E11.22 Type 2 diabetes mellitus with diabetic chronic kidney disease; N18.3 Chronic kidney disease, stage 3 (moderate)
CPT/HCPCS: 36415; 36416; 71045; 80048; 80053; 80061; 80306; 80307; 81003; 81015; 82550; 82553; 82805; 83605; 83690; 83880; 84132; 84484; 85025; 85610; 87040; 87804; 93005; 93306; 93798; 94640; 94660; 96365; 96367; 96375; J1100; J1940; J1956; J3475; J3490; J7611; J7620

== ENCOUNTER 2019-12-11 08:51 | Inpatient (IN) | payer MEDICARE, MEDICAID, OTHER ==
[2019-12-11] MEDS ORDERED: Furosemide 40 MG/4 ML VIAL ONE ×2 (09:33)
[2019-12-11] MEDS ORDERED: Aspirin Chewable 81 MG TAB ONE (09:33)
--- NOTE | 2019-12-11 09:44 | RAD ---
EXAM: Single view of the chest HISTORY: Shortness of breath COMPARISON: 07/10/2019 FINDINGS: Single view of the chest shows an enlarged but stable cardiomediastinal silhouette. A pace maker seen with its leads in the right age and ventricle. No pneumothorax is seen. Bilateral pulmonary vascular enlargement is seen. There is no evidence of consolidation, mass, or pleural effu jose rafael. The bones are unremarkable. IMPRESSION: Cardiomegaly
[2019-12-11 10:00] LABS: #Eosinphils 0.3 thou/uL (0.0-0.7); #Monocytes 0.5 thou/uL (0.11-0.59); #Neutrophils 6.9 thou/uL (1.40-6.50); %Basophils 0.5 % (0.0-1.0); %Eosinophils 3.9 % (0.0-10.0); %Lymphocytes 11.2 % (21.0-51.0); %Monocytes 5.6 % (0.0-10.0); %Neutrophils 78.8 % (42.0-75.0); Hemoglobin 9.9 g/dL (12.0-16.0); Mean Corpuscular HGB CONC 30.3 g/dL (32.0-36.0); Mean Corpuscular Hemoglobin 28.2 pg (27.0-31.0); Mean Corpuscular Volume 92.9 fL (78.0-98.0); Mean Platelet Volume 7.6 fL (7.4-10.4); Platelet Count 298 thou/uL (130-400); RBC Distribution Width 14.5 % (11.5-14.5); Red Blood Cell (RBC) Count 3.52 mill/uL (4.20-5.40); White Blood Cell (WBC) Count 8.8 thou/uL (4.8-10.8)
[2019-12-11 10:18] LABS: ALT (SGPT) 32 U/L (8-55); AST (SGOT) 67 U/L (5-34); Albumin 4.1 g/dL (3.4-4.8); Alkaline Phosphatase 88 U/L (40-110); Anion Gap 13 mmol/L (10-20); BUN (Urea Nitrogen) 20 mg/dL (9.8-20.1); Bilirubin, Total 0.4 mg/dL (0.2-1.2); Calc. Creatinine Clearance 0 mL/min (70-130); Carbon Dioxide 25 mmol/L (23-31); Chloride 109 mmol/L (98-107); Estimated GFR-MDRD 56; Globulin 3.9 g/dL (2.4-3.5); Glucose 130 mg/dL (80-115); Sodium 143 mmol/L (136-145)
[2019-12-11] MEDS ORDERED: Acetaminophen 325 MG TAB PO PRN (17:04)
[2019-12-11] MEDS ORDERED: Senokot S 8.6-50 MG TAB PO PRN (17:04)
[2019-12-11] MEDS ORDERED: Guaifenesin DM 100-10/5 ML UDCUP PO PRN (17:04)
[2019-12-11] MEDS ORDERED: Ondansetron PF 4 MG/2 ML Vial IVP PRN (17:04)
[2019-12-11] MEDS ORDERED: Ondansetron ODT 4 MG TAB PO PRN (17:04)
[2019-12-11] MEDS ORDERED: Acetaminophen 650 MG Suppository PR PRN (17:04)
[2019-12-11 17:09] VITALS: BMI 27.4
[2019-12-11] MEDS: Acetaminophen/Codeine 30-300mg Tablet PO PRN (17:49)
[2019-12-11] MEDS ORDERED: Dextrose 5% in Water 1,000 ML IV PRN (18:02)
[2019-12-11] MEDS ORDERED: Dextrose 50% Abboject 50 ML SYRINGE SLOW IVP PRN (18:02)
[2019-12-11] MEDS ORDERED: HumaLOG 300 UNITS/3 ML VIAL SC PRN ×2 (18:02)
[2019-12-11] MEDS ORDERED: traMADol HCl 50 MG TAB PO PRN (18:15)
--- NOTE | 2019-12-11 18:47 | HP ---
PRIMARY CARE PROVIDER: Dr. Latosha Mcclellan. BUILDING CONSTRUCTION ESTIMATOR: Dr. Harp. CHIEF COMPLAINT: Shortness of breath. HISTORY OF PRESENT ILLNESS: This is a 64-year-old, female, with a known history of systolic and diastolic congestive heart failure with an ejection fraction of 20% to 25% with recent AICD placement. She presents with a 1-day history of shortness of breath. Reports she started getting significantly short of breath this morning, also having increased cough with clear sputum. Shortness of breath is worse with exertion. She denies specific orthopnea or swelling. She eventually called an ambulance, was found to have room air O2 saturations of 80% at home, was put on oxygen and brought to the hospital. Here, she was given Lasix and 3 L of oxygen and is saturating well and feeling much better now. She denies any chest pain or other significant symptoms. No infectious symptoms or COVID contacts. REVIEW OF SYSTEMS: CONSTITUTIONAL: No fevers. No chills. EYES: No double vision. She has some chronic mild blurred vision. ENT: No congestion, drainage, or sore throat. CARDIOVASCULAR: No chest pain. No palpitations or racing heart. PULMONARY: Shortness of breath and cough as per HPI. No wheezing or chest tightness. GASTROINTESTINAL: No abdominal pain. No nausea or vomiting. No diarrhea or constipation. GENITOURINARY: No dysuria or hematuria. MUSCULOSKELETAL: No muscle aches or joint pains. SKIN: No rashes or other lesions noted. She does have some tenderness and pain at the AICD insertion site. NEUROLOGIC: No numbness, tingling, or focal weakness. PAST MEDICAL HISTORY: 1. Congestive heart failure, systolic and diastolic with ejection fraction of 20% to 25%. 2. Breast cancer, status post chemotherapy, radiation, and surgery. 3. Diabetes mellitus, type 2. 4. Hypertension. 5. Dyslipidemia. 6. Chronic kidney disease, stage 3. PAST SURGICAL HISTORY: 1. Mastectomy. 2. Hysterectomy. 3. Esophageal dilation. 4. AICD placement. SOCIAL HISTORY: The patient reports she used to smoke about a pack of cigarettes per day, quit one month ago. Denies alcohol or illicit drug use. She states she lives by herself. She is a full code and her daughter would be her medical decision maker, her name is Alena De La Rosa. FAMILY HISTORY: No family history of premature coronary artery disease. ALLERGIES: RAHUL INHIBITOR AND ARB. CURRENT MEDICATIONS: 1. Protonix 40 mg daily. 2. Metformin 500 mg twice a day. 3. Isosorbide mononitrate 60 mg one-half tablet daily. 4. Aspirin 81 mg daily. 5. Carvedilol 6.25 mg three times a day. 6. Anastrozole 1 mg daily. 7. Potassium chloride 20 mEq daily. 8. Acetaminophen/codeine 300/30 mg one tablet every 6 hours as needed for pain. 9. Atorvastatin 20 mg daily. 10. Lasix 40 mg twice a day. 11. Spironolactone 12.5 mg daily. 12. Tramadol as needed for pain. PHYSICAL EXAMINATION: VITAL SIGNS: Blood pressure 131/76, pulse 93, respirations 18, O2 saturation 98% on 3 L, temperature 98.1. GENERAL: This is a well-developed, well-nourished, female, in no acute distress. HEENT: Pupils are equal, round, and reactive to light. Oropharynx clear without lesions, erythema, or exudate. NECK: Supple. No lymphadenopathy. No thyroid nodules or enlargement. HEART: Regular rate and rhythm. No murmurs, rubs, or gallops. LUNGS: Clear to auscultation bilaterally. No wheezes, crackles, or rhonchi. ABDOMEN: Soft, nontender to palpation. Normoactive bowel sounds. No hepatosplenomegaly or other masses. EXTREMITIES: No clubbing, cyanosis, or significant edema. SKIN: No rashes or other lesions noted. Her surgical site at the left anterior chest is healing well, though it is tender to palpation surrounding it, no evidence of infection. NEUROLOGIC: The patient is moving all extremities equally. No facial droop. LABORATORY DATA: CBC with a low hemoglobin of 9.9, down from 11 in June of this year; hematocrit 32.4; platelet count 298; the rest was normal. Complete metabolic panel is notable for chloride of 109; creatinine of 1.17, which is up from 0.82 earlier in the year; glucose of 130; AST of 67; the rest was normal. Troponin was negative x1. Brain natriuretic peptide was elevated at 2446, which has increased from 1500 on her admission for CHF earlier in the year. Chest x-ray, I did review the chest x-ray done in the emergency room along with the radiologist's report. It does show cardiomegaly with bilateral pulmonary vascular enlargement seen, consistent with congestive heart failure. No pleural effusions demonstrated. EKG done in the emergency room shows normal sinus rhythm without any significant ST-segment or T-wave changes. No evidence of acute ischemia. ASSESSMENT: 1. Acute on chronic congestive heart failure exacerbation. We will put the patient on IV Lasix and continue her home medications. We will give oxygen supplementation as needed. We will consult Cardiology. She has already had a recent echocardiogram, so we do not need to repeat it right now. 2. Acute hypoxic respiratory failure secondary to #1. We will supplement oxygen as needed and wean that off as we diurese her. 3. Chronic kidney disease, stage 3, about baseline. We will monitor closely for any worsening with diuresis. 4. Diabetes mellitus, type 2. We will resume the patient's metformin and we will put her on low insulin sliding scale with fingerstick blood sugars q.a.c. and at bedtime and put her on diabetic diet with fluid restriction. 5. Hyperlipidemia. We will resume the patient's statin. 6. Gastrointestinal prophylaxis. Put the patient on Pepcid twice a day. 7. Deep venous thrombosis prophylaxis. Put the patient on Lovenox subcu. CODE STATUS: The patient is a full code. Should she be incapacitated, her sister would be her medical decision maker, her name is Alena De La Rosa. Job ID: [id number]
[2019-12-11] MEDS: Cephalexin 250 MG CAP PO SCH (20:23)
[2019-12-11] MEDS: Carvedilol 6.25 MG TAB PO SCH (20:24)
[2019-12-11] MEDS: metFORMIN 500 MG TAB PO SCH (20:24)
[2019-12-12] MEDS: Cephalexin 250 MG CAP PO SCH ×4 (01:41→20:33)
[2019-12-12 04:32] LABS: #Eosinphils 0.3 thou/uL (0.0-0.7); #Lymphocytes 1.1 thou/uL (1.20-3.40); #Monocytes 0.6 thou/uL (0.11-0.59); #Neutrophils 3.2 thou/uL (1.40-6.50); %Basophils 0.7 % (0.0-1.0); %Eosinophils 5.7 % (0.0-10.0); %Lymphocytes 20.5 % (21.0-51.0); %Monocytes 11.8 % (0.0-10.0); %Neutrophils 61.4 % (42.0-75.0); Hemoglobin 9.4 g/dL (12.0-16.0); Mean Corpuscular HGB CONC 30.9 g/dL (32.0-36.0); Mean Corpuscular Hemoglobin 28.7 pg (27.0-31.0); Mean Corpuscular Volume 92.8 fL (78.0-98.0); Mean Platelet Volume 8.3 fL (7.4-10.4); Platelet Count 259 thou/uL (130-400); RBC Distribution Width 14.5 % (11.5-14.5); Red Blood Cell (RBC) Count 3.27 mill/uL (4.20-5.40); White Blood Cell (WBC) Count 5.1 thou/uL (4.8-10.8)
[2019-12-12 05:19] LABS: Anion Gap 11 mmol/L (10-20); BUN (Urea Nitrogen) 23 mg/dL (9.8-20.1); Calc. Creatinine Clearance 59 mL/min (70-130); Calcium 9.2 mg/dL (7.8-10.44); Carbon Dioxide 27 mmol/L (23-31); Chloride 108 mmol/L (98-107); Estimated GFR-MDRD 65; Glucose 100 mg/dL (80-115); Potassium 4.2 mmol/L (3.5-5.1); Sodium 142 mmol/L (136-145)
--- NOTE | 2019-12-12 07:23 | PDOC.HOSPP ---
- Subjective Encounter Date: 12/12/19 Encounter Time: 09:30 Subjective: Patient sleepy this AM. Denies shortness of breath at rest while on oxygen. No other complaints. - Objective Vital Signs & Weight: Vital Signs (12 hours) Temp Pulse Resp BP BP Pulse Ox 12/12/19 03:42 98.4 F 60 18 110/59 L 96 12/11/19 23:29 60 123/80 12/11/19 20:15 97.9 F 76 20 119/70 99 Weight Weight 145 lb 11.2 oz I&O: 12/11/19 12/12/19 12/13/19 06:59 06:59 06:59 Intake Total 720 Balance 720 Result Diagrams: 12/12/19 04:11 12/12/19 04:11 Additional Labs: Accuchecks 12/12/19 12/11/19 05:40 20:35 POC Glucose 86 125 H Hospitalist ROS - Review of Systems Constitutional: denies: fever, chills Respiratory: denies: cough, shortness of breath Cardiovascular: denies: chest pain, palpitations Gastrointestinal: denies: nausea, vomiting, abdominal pain - Medication Medications: Active Medications Generic Name Dose Route Start Last Admin Trade Name Freq PRN Reason Stop Dose Admin Acetaminophen/Codeine Phosphate 1 tab 12/11/19 17:04 12/11/19 17:49 Tylenol #3 PO 1 tab Q6H PRN Administration Pain Carvedilol 6.25 mg 12/11/19 21:00 12/11/19 20:24 Coreg PO 6.25 mg BID TRE Administration Cephalexin 500 mg 12/11/19 20:00 12/12/19 01:41 Keflex PO 500 mg Q6H TRE Administration Metformin HCl 500 mg 12/11/19 21:00 12/11/19 20:24 Glucophage PO 500 mg BID TRE Administration - Exam General Appearance: NAD General - other findings: sleepy, arousable ENT: moist mucosa Heart: RRR, no murmur, no gallops, no rubs Respiratory: CTAB, no wheezes, no rales, no ronchi Gastrointestinal: soft, non-tender, non-distended, normal bowel sounds Psychiatric: normal affect, normal behavior, A&O x 3 Psychiatric - other findings: sleepy, arousable Hosp A/P (1) Acute on chronic combined systolic (congestive) and diastolic (congestive) heart failure Code(s): I50.43 - ACUTE ON CHRONIC COMBINED SYSTOLIC AND DIASTOLIC HRT FAIL Status: Acute (2) Acute respiratory failure with hypoxia Code(s): J96.01 - ACUTE RESPIRATORY FAILURE WITH HYPOXIA Status: Acute (3) Chronic kidney disease, stage 3 Code(s): N18.3 - CHRONIC KIDNEY DISEASE, STAGE 3 (MODERATE) Status: Chronic (4) DM type 2 (diabetes mellitus, type 2) Status: Chronic Qualifiers: Diabetes mellitus extermination supervisor insulin use: unspecified extermination supervisor insulin use status Diabetes mellitus complication status: without complication Qualified Code(s): E11.9 - Type 2 diabetes mellitus without complications (5) HLD (hyperlipidemia) Code(s): E78.5 - HYPERLIPIDEMIA, UNSPECIFIED Status: Chronic (6) HTN (hypertension) Code(s): I10 - ESSENTIAL (PRIMARY) HYPERTENSION Status: Chronic - Plan Patient diuresing well. Weaning down nasal canula O2 Cardiology consult DVT proph: Lovenox GI proph: Protonix
[2019-12-12] MEDS ORDERED: Spironolactone 25 MG TAB PO SCH (08:00)
[2019-12-12] MEDS: Alogliptin 25 MG TAB PO SCH (08:08)
[2019-12-12] MEDS: Anastrozole 1 MG TAB PO SCH (08:13)
[2019-12-12] MEDS: Pantoprazole 40 MG GRANULES PACKET PO SCH (08:13)
[2019-12-12] MEDS: Aspirin 81 mg Enteric Coated Tablet PO SCH (08:14)
[2019-12-12] MEDS: Carvedilol 6.25 MG TAB PO SCH ×2 (08:14→20:33)
[2019-12-12] MEDS: Atorvastatin Calcium 20 MG TAB PO SCH (08:14)
[2019-12-12] MEDS: metFORMIN 500 MG TAB PO SCH ×2 (08:14→20:34)
[2019-12-12] MEDS: Potassium Chloride 10 MEQ TAB PO SCH (08:14)
[2019-12-12] MEDS: Enoxaparin Sodium 40 MG/0.4 ML SYRINGE SC SCH (08:15)
[2019-12-12] MEDS ORDERED: hydrALAZINE 25 MG TAB PO SCH (09:00)
--- NOTE | 2019-12-12 12:14 | CON ---
DATE OF CONSULTATION: HISTORY OF PRESENT ILLNESS: The patient is a 64-year-old woman, who presents for evaluation of dyspnea. The patient has a long history of a nonischemic cardiomyopathy. She underwent a cardiac catheterization in December of 2017. She was found to have a nonischemic cardiomyopathy. There was a 30% lesion in the left circumflex and 20% in the RCA. The patient was placed on medical therapy. She underwent a followup echocardiogram. The patient has been on medical therapy. She had a followup echocardiogram, which revealed moderate decrease in left ventricular systolic function with an estimated ejection fraction of 20% to 25% . The patient recently underwent placement of automatic implantable cardiac defibrillator. The patient presented with increasing dyspnea. She denied having any chest discomfort. The patient states she has been compliant with her medications. PAST MEDICAL HISTORY: 1. Cardiomyopathy. 2. Mild coronary artery disease. 3. Hypertension. 4. Dyslipidemia. 5. Diabetes mellitus. 6. Breast carcinoma. PAST SURGICAL HISTORY: Hysterectomy,and mastectomy. SOCIAL HISTORY: Nonsmoker. FAMILY HISTORY: Strong family history of heart disease. ALLERGIES: RAHUL INHIBITORS. MEDICATIONS: On admission, see nursing list. REVIEW OF SYSTEMS: Ten-point system otherwise unremarkable. The patient denies having any weight gain. PHYSICAL EXAMINATION: GENERAL: Thin woman, in no acute distress. VITAL SIGNS: Blood pressure 134/74. NECK: Showed no carotid bruits. LUNGS: Clear to auscultation. HEART: Regular rate and rhythm with normal S1 and S2 with no murmurs. ABDOMEN: Nondistended. EXTREMITIES: Show trace edema. VASCULAR: Radial pulses are 2+. LABORATORY DATA: Sodium 142, potassium 4.2, chloride 108, bicarbonate 27, BUN 23, creatinine 1.0, and glucose was 100. BNP was 2446. White blood cell count is 5.1, hemoglobin 9.4, hematocrit 30.3, and platelets 259. ASSESSMENT: 1. Congestive heart failure. 2. History of cardiomyopathy. 3. Mild coronary artery disease. 4. Diabetes mellitus. 5. Hypertension. 6. Dyslipidemia. PLAN: This patient presents with mild congestive heart failure. The patient is on hydralazine and Imdur. We would recommend trying to switch the patient to hydralazine and Isordil, which would substitute for BiDil. In addition, we would recommend a higher dose of spironolactone. The patient would also benefit if she could be placed on Farxiga or Jardiance for its known increased survival in patients with a cardiomyopathy. We will follow this patient with you through her hospitalization. Job ID: [id number] [email or web address]
[2019-12-12] MEDS: Isosorbide Dinitrate 20 MG TAB PO SCH ×2 (13:43→20:34)
[2019-12-12] MEDS: hydrALAZINE 25 MG TAB PO SCH ×2 (13:44→20:33)
[2019-12-12] MEDS: Acetaminophen/Codeine 30-300mg Tablet PO PRN (23:33)
[2019-12-13] MEDS: Cephalexin 250 MG CAP PO SCH ×2 (02:36→09:12)
--- NOTE | 2019-12-13 07:21 | PDOC.HOSPP ---
- Subjective Encounter Date: 12/13/19 Encounter Time: 09:00 Subjective: Patient without further SOB. Wants to go home. Just took off O2 and waiting to see how sating on room air. - Objective Vital Signs & Weight: Vital Signs (12 hours) Temp Pulse Resp BP BP Pulse Ox 12/13/19 03:10 98.4 F 61 18 118/62 99 12/12/19 20:33 92 124/63 12/12/19 19:30 98.1 F 92 14 114/59 L 97 Weight Weight 145 lb 11.115 oz I&O: 12/12/19 12/13/19 12/14/19 06:59 06:59 06:59 Intake Total 720 1200 Balance 720 1200 Result Diagrams: 12/12/19 04:11 12/12/19 04:11 Additional Labs: Accuchecks 12/12/19 12/12/19 12/12/19 20:07 16:30 10:32 POC Glucose 99 216 H 123 H Hospitalist ROS - Review of Systems Constitutional: denies: fever, chills Respiratory: denies: cough, shortness of breath Cardiovascular: denies: chest pain, palpitations, edema Gastrointestinal: denies: nausea, vomiting, abdominal pain Neurological: denies: weakness - Medication Medications: Active Medications Generic Name Dose Route Start Last Admin Trade Name Freq PRN Reason Stop Dose Admin Acetaminophen/Codeine Phosphate 1 tab 12/11/19 17:04 12/12/19 23:33 Tylenol #3 PO 1 tab Q6H PRN Administration Pain Alogliptin Benzoate 25 mg 12/12/19 09:00 12/12/19 08:08 Alogliptin PO 25 mg DAILY TRE Administration Anastrozole 1 mg 12/12/19 09:00 12/12/19 08:13 Arimidex PO 1 mg DAILY TRE Administration Aspirin 81 mg 12/12/19 09:00 12/12/19 08:14 Ecotrin PO 81 mg DAILY TRE Administration Atorvastatin Calcium 20 mg 12/12/19 09:00 12/12/19 08:14 Lipitor PO 20 mg DAILY TRE Administration Carvedilol 6.25 mg 12/11/19 21:00 12/12/19 20:33 Coreg PO 6.25 mg BID TRE Administration Cephalexin 500 mg 12/11/19 20:00 12/13/19 02:36 Keflex PO 500 mg Q6H TRE Administration Enoxaparin Sodium 40 mg 12/12/19 09:00 12/12/19 08:15 Lovenox SC 40 mg 0900 TRE Administration Hydralazine HCl 25 mg 12/12/19 15:00 12/12/19 20:33 Apresoline PO 25 mg TID TRE Administration Insulin Human Lispro 0 units 12/11/19 18:02 12/12/19 16:50 Humalog SC 3 unit .MILD SLIDING SCALE PRN Administration Mild Correctional Scale Isosorbide Dinitrate 20 mg 12/12/19 15:00 12/12/19 20:34 Isordil PO 20 mg TID TRE Administration Metformin HCl 500 mg 12/11/19 21:00 12/12/19 20:34 Glucophage PO 500 mg BID TRE Administration Pantoprazole Sodium 40 mg 12/12/19 09:00 12/12/19 08:13 Protonix PO 40 mg DAILY TRE Administration Potassium Chloride 10 meq 12/12/19 09:00 12/12/19 08:14 Klor-Con 10 PO 10 meq DAILY TRE Administration - Exam General Appearance: NAD, awake alert ENT: moist mucosa Heart: RRR, no murmur, no gallops, no rubs Respiratory: CTAB, no wheezes, no rales, no ronchi Gastrointestinal: soft, non-tender, non-distended, normal bowel sounds Psychiatric: normal affect, normal behavior, A&O x 3 Hosp A/P (1) Acute on chronic combined systolic (congestive) and diastolic (congestive) heart failure Code(s): I50.43 - ACUTE ON CHRONIC COMBINED SYSTOLIC AND DIASTOLIC HRT FAIL Status: Acute (2) Acute respiratory failure with hypoxia Code(s): J96.01 - ACUTE RESPIRATORY FAILURE WITH HYPOXIA Status: Acute (3) Chronic kidney disease, stage 3 Code(s): N18.3 - CHRONIC KIDNEY DISEASE, STAGE 3 (MODERATE) Status: Chronic (4) DM type 2 (diabetes mellitus, type 2) Status: Chronic Qualifiers: Diabetes mellitus ad terminal makeup operator insulin use: unspecified ad terminal makeup operator insulin use status Diabetes mellitus complication status: without complication Qualified Code(s): E11.9 - Type 2 diabetes mellitus without complications (5) HLD (hyperlipidemia) Code(s): E78.5 - HYPERLIPIDEMIA, UNSPECIFIED Status: Chronic (6) HTN (hypertension) Code(s): I10 - ESSENTIAL (PRIMARY) HYPERTENSION Status: Chronic - Plan Patient diuresing well as far as I can tell, voids not measured. Will try patient off Oxygen. If saturating well and ok with Dr. Gutierrez will discharge patient home. DVT proph: Lovenox GI proph: Protonix
[2019-12-13] MEDS ORDERED: Spironolactone 25 MG TAB PO SCH (08:00)
[2019-12-13] MEDS: Alogliptin 25 MG TAB PO SCH (08:42)
[2019-12-13] MEDS: Anastrozole 1 MG TAB PO SCH (08:43)
[2019-12-13] MEDS: Aspirin 81 mg Enteric Coated Tablet PO SCH (08:43)
[2019-12-13] MEDS: Carvedilol 6.25 MG TAB PO SCH (08:44)
[2019-12-13] MEDS: hydrALAZINE 25 MG TAB PO SCH (08:44)
[2019-12-13] MEDS: Atorvastatin Calcium 20 MG TAB PO SCH (08:44)
[2019-12-13] MEDS: Enoxaparin Sodium 40 MG/0.4 ML SYRINGE SC SCH (08:44)
[2019-12-13] MEDS: Potassium Chloride 10 MEQ TAB PO SCH (08:45)
[2019-12-13] MEDS: Pantoprazole 40 MG GRANULES PACKET PO SCH (08:45)
[2019-12-13] MEDS: metFORMIN 500 MG TAB PO SCH (08:45)
[2019-12-13] MEDS: Isosorbide Dinitrate 20 MG TAB PO SCH (08:45)
[2019-12-13] MEDS: Acetaminophen/Codeine 30-300mg Tablet PO PRN (10:34)
[2019-12-13 13:07] VITALS: BP 126/78; TEMP 98.1
--- NOTE | 2019-12-14 01:49 | DIS ---
DATE OF ADMISSION: 12/11/2019 DATE OF DISCHARGE: 12/13/2019 PRIMARY CARE PHYSICIAN: Dr. Latosha Mcclellan. REASON FOR ADMISSION: Acute exacerbation of congestive heart failure. DIAGNOSES AT DISCHARGE: 1. [id number] combined systolic and diastolic congestive heart failure. 2. Acute respiratory failure with hypoxia, resolved. 3. Chronic kidney disease, stage 3. 4. Diabetes mellitus type 2. 5. Hyperlipidemia. 6. Hypertension. PROCEDURES: None. CONSULTATION: Cardiology, Dr. Gutierrez. SUMMARY OF HOSPITAL COURSE: This is a 64-year-old female with a known history of systolic and diastolic congestive heart failure with ejection fraction of 20% to 25% and a recent AICD placement. She presented with a history of one day shortness of breath, cough with clear sputum and dyspnea on exertion. She was found to have O2 saturation of 80% on room air by ambulance, put on oxygen and given Lasix and did much better. She was admitted to the hospital, Dr. Gutierrez was consulted. Her medications were adjusted and she was diuresed well. She was feeling much better the day of discharge, was off all oxygen, saturating well and ambulating by herself and so she is being discharged home. DISCHARGE MANAGEMENT: Discharged home. FOLLOWUP: Follow up with cardiac rehab in [place] with Dr. Harp in 3-[address] Latosha Mcclellan in 7 days. Activity: As tolerated. Diet: Diabetic diet with fluid restriction. MEDICATIONS: 1. Carvedilol 6.25 mg twice daily, 60 tablets dispensed. 2. Hydralazine 25 mg 3 times a day, 90 tabs dispensed. 3. Isordil 20 mg 3 times a day, 90 tablets dispensed. 4. Spironolactone 25 mg daily, 30 tablets dispensed. 5. Acetaminophen with codeine as needed. 6. Anastrozole 1 mg daily. 7. Aspirin 81 mg daily. 8. Atorvastatin 20 mg daily. 9. Keflex q.6 hours until completing the course. 10. Tradjenta 5 mg daily. 11. Metformin 500 mg twice daily. 12. Protonix 40 mg daily. 13. Potassium chloride 10 mEq daily. 14. Tramadol as needed for pain. 15. Furosemide 40 mg twice daily. TIME SPENT: Arranging the details of this discharge took 32 minutes. Job ID: [id number]
== END 2019-12-13 13:35 | disposition home or self-care (01) | DRG 291 ==
LOC: ERS 08:51 → 2NO 12:58 → OBSVTOIN 16:58
PROVIDERS: ADMIT Family Medicine; ATTEND Family Medicine
DX: I13.0 Hypertensive heart and chronic kidney disease with heart failure and stage 1 through stage 4 chronic kidney disease, or unspecified chronic kidney disease (principal); I50.43 Acute on chronic combined systolic (congestive) and diastolic (congestive) heart failure; J96.01 Acute respiratory failure with hypoxia; I42.9 Cardiomyopathy, unspecified; N18.3 Chronic kidney disease, stage 3 (moderate); E11.22 Type 2 diabetes mellitus with diabetic chronic kidney disease; E78.5 Hyperlipidemia, unspecified; I25.10 Atherosclerotic heart disease of native coronary artery without angina pectoris; Z95.810 Presence of automatic (implantable) cardiac defibrillator; Z87.891 Personal history of nicotine dependence; Z85.3 Personal history of malignant neoplasm of breast; Z92.3 Personal history of irradiation; Z92.21 Personal history of antineoplastic chemotherapy; Z90.710 Acquired absence of both cervix and uterus; Z90.10 Acquired absence of unspecified breast and nipple; Z79.899 Other long term (current) drug therapy; Z79.82 Long term (current) use of aspirin; Z79.84 Long term (current) use of oral hypoglycemic drugs; Z88.8 Allergy status to other drugs, medicaments and biological substances
CPT/HCPCS: 36415; 36416; 71045; 80048; 80053; 83880; 84484; 85025; 93005; J1650; J1940

== ENCOUNTER 2021-03-02 03:53 | Inpatient (IN) | payer MEDICARE, MEDICAID ==
[2021-03-02 05:47] LABS: ALT (SGPT) 8 U/L (8-55); AST (SGOT) 19 U/L (5-34); Albumin 4.2 g/dL (3.4-4.8); Alkaline Phosphatase 66 U/L (40-110); Anion Gap 13 mmol/L (10-20); BUN (Urea Nitrogen) 10 mg/dL (9.8-20.1); Bilirubin, Total 0.5 mg/dL (0.2-1.2); Calc. Creatinine Clearance 0 mL/min (70-130); Calcium 9.4 mg/dL (7.8-10.44); Carbon Dioxide 27 mmol/L (23-31); Chloride 103 mmol/L (98-107); Globulin 4.2 g/dL (2.4-3.5); Glucose 105 mg/dL (80-115); Potassium 3.2 mmol/L (3.5-5.1); Protein, Total 8.4 g/dL (5.8-8.1); Sodium 140 mmol/L (136-145)
[2021-03-02 06:16] LABS: Hemoglobin 9.2 g/dL (12.0-16.0); Mean Corpuscular HGB CONC 30.1 g/dL (32.0-36.0); Mean Corpuscular Hemoglobin 26.3 pg (27.0-31.0); Mean Corpuscular Volume 87.4 fL (78.0-98.0); Mean Platelet Volume 7.8 fL (7.4-10.4); Platelet Count 359 thou/uL (130-400); RBC Distribution Width 20.8 % (11.5-14.5); Red Blood Cell (RBC) Count 3.48 mill/uL (4.20-5.40); White Blood Cell (WBC) Count 9.2 thou/uL (4.8-10.8)
[2021-03-02 06:21] LABS: #Basophils 0.1 thou/uL (0.0-0.2); #Eosinphils 0.1 thou/uL (0.0-0.7); #Lymphocytes 0.8 thou/uL (1.20-3.40); #Monocytes 0.5 thou/uL (0.11-0.59); #Neutrophils 7.7 thou/uL (1.40-6.50); %Basophils 0.6 % (0.0-1.0); %Eosinophils 1.3 % (0.0-10.0); %Lymphocytes 8.9 % (21.0-51.0); %Monocytes 5.4 % (0.0-10.0); %Neutrophils 83.8 % (42.0-75.0); Anisocytosis SLIGHT = 6-15 cells (100X) (0-5/hpf); Hypochromia SLIGHT = 6-15 cells (100X) (0-5/hpf); MDiff Complete? YES
[2021-03-02] MEDS ORDERED: Furosemide 40 MG/4 ML VIAL ONE (06:26)
[2021-03-02] MEDS ORDERED: Nitroglycerin 2% Ointment 1 INCH/1 GM Packet ONE (06:26)
[2021-03-02] MEDS ORDERED: Acetaminophen 650 MG Suppository PR PRN (08:30)
[2021-03-02] MEDS ORDERED: Acetaminophen 325 MG TAB PO PRN (08:30)
[2021-03-02] MEDS ORDERED: Guaifenesin DM 100-10/5 ML UDCUP PO PRN (08:30)
[2021-03-02] MEDS ORDERED: Ondansetron ODT 4 MG TAB PO PRN (08:30)
[2021-03-02] MEDS ORDERED: Ondansetron PF 4 MG/2 ML Vial IVP PRN (08:30)
[2021-03-02] MEDS ORDERED: Potassium Chloride 20 MEQ TAB PO SCH (08:45)
[2021-03-02 08:54] LABS: Troponin I 0.034 ng/mL (< 0.028)
[2021-03-02 09:11] LABS: Magnesium 1.9 mg/dL (1.6-2.6)
[2021-03-02] MEDS ORDERED: Electrolyte Replacement Protocol 1 EACH FS SCH (10:15)
[2021-03-02] MEDS: Heparin 5,000 UNITS/ML VIAL SC SCH ×2 (10:36→21:30)
[2021-03-02] MEDS: Aspirin 81 mg Enteric Coated Tablet PO SCH (10:36)
[2021-03-02 11:00] VITALS: BMI 24.0
[2021-03-02] MEDS ORDERED: Magnesium 2 GM/50 ML 2 GM in Premix Bag 1 BAG IVPB SCH (11:00)
[2021-03-02] MEDS: Furosemide 40 MG/4 ML VIAL SLOW IVP SCH (14:09)
[2021-03-02 15:52] LABS: Troponin I 0.023 ng/mL (< 0.028)
[2021-03-02 23:43] LABS: SARS-CoV-2 PCR by NAA Not Detected (NotDetected)
[2021-03-03 04:49] LABS: #Eosinphils 0.3 thou/uL (0.0-0.7); #Lymphocytes 1.2 thou/uL (1.20-3.40); #Monocytes 0.7 thou/uL (0.11-0.59); #Neutrophils 4.5 thou/uL (1.40-6.50); %Basophils 0.5 % (0.0-1.0); %Eosinophils 4.1 % (0.0-10.0); %Lymphocytes 17.5 % (21.0-51.0); %Neutrophils 66.9 % (42.0-75.0); Hemoglobin 8.6 g/dL (12.0-16.0); Mean Corpuscular HGB CONC 29.9 g/dL (32.0-36.0); Mean Corpuscular Hemoglobin 26.9 pg (27.0-31.0); Mean Corpuscular Volume 89.8 fL (78.0-98.0); Platelet Count 231 thou/uL (130-400); RBC Distribution Width 20.7 % (11.5-14.5); White Blood Cell (WBC) Count 6.7 thou/uL (4.8-10.8)
[2021-03-03 04:52] LABS: Anion Gap 13 mmol/L (10-20); BUN (Urea Nitrogen) 14 mg/dL (9.8-20.1); Calc. Creatinine Clearance 49 mL/min (70-130); Calcium 9.2 mg/dL (7.8-10.44); Carbon Dioxide 25 mmol/L (23-31); Chloride 108 mmol/L (98-107); Glucose 120 mg/dL (80-115); Magnesium 2.4 mg/dL (1.6-2.6); Potassium 3.2 mmol/L (3.5-5.1); Sodium 143 mmol/L (136-145)
[2021-03-03] MEDS: Furosemide 40 MG/4 ML VIAL SLOW IVP SCH ×2 (05:33→13:54)
[2021-03-03] MEDS ORDERED: Potassium Chloride 20 MEQ TAB PO SCH (06:30)
[2021-03-03] MEDS: Aspirin 81 mg Enteric Coated Tablet PO SCH (09:14)
[2021-03-03] MEDS: Heparin 5,000 UNITS/ML VIAL SC SCH (09:14)
[2021-03-03] MEDS ORDERED: Anastrozole 1 MG TAB PO SCH (11:45)
[2021-03-03] MEDS ORDERED: Dextrose 5% in Water 1,000 ML IV PRN (11:47)
[2021-03-03] MEDS ORDERED: Dextrose 50% Abboject 50 ML SYRINGE SLOW IVP PRN (11:47)
[2021-03-03] MEDS ORDERED: HumaLOG 300 UNITS/3 ML VIAL SC PRN (11:47)
[2021-03-03 15:06] VITALS: BP 116/68; TEMP 98
[2021-03-04] MEDS ORDERED: Anastrozole 1 MG TAB PO SCH (09:00)
== END 2021-03-03 16:00 | disposition home or self-care (01) | DRG 291 ==
LOC: SUATTDRO 03:53 → ERS 03:53 → 2NO 06:51
PROVIDERS: ADMIT Internal Medicine; ATTEND Internal Medicine
DX: I13.0 Hypertensive heart and chronic kidney disease with heart failure and stage 1 through stage 4 chronic kidney disease, or unspecified chronic kidney disease (principal); I50.23 Acute on chronic systolic (congestive) heart failure; J96.01 Acute respiratory failure with hypoxia; Z20.822 Contact with and (suspected) exposure to COVID-19; I42.0 Dilated cardiomyopathy; E87.6 Hypokalemia; E78.5 Hyperlipidemia, unspecified; K21.9 Gastro-esophageal reflux disease without esophagitis; E87.5 Hyperkalemia; I25.10 Atherosclerotic heart disease of native coronary artery without angina pectoris; N18.9 Chronic kidney disease, unspecified; E11.22 Type 2 diabetes mellitus with diabetic chronic kidney disease; Z28.21 Immunization not carried out because of patient refusal; Z95.810 Presence of automatic (implantable) cardiac defibrillator; Z90.11 Acquired absence of right breast and nipple; Z88.8 Allergy status to other drugs, medicaments and biological substances; Z87.891 Personal history of nicotine dependence; Z79.899 Other long term (current) drug therapy; Z79.82 Long term (current) use of aspirin; Z79.84 Long term (current) use of oral hypoglycemic drugs; Z85.3 Personal history of malignant neoplasm of breast; Z90.710 Acquired absence of both cervix and uterus; Z82.49 Family history of ischemic heart disease and other diseases of the circulatory system
CPT/HCPCS: 36415; 36416; 71045; 80048; 80053; 83735; 83880; 84443; 84484; 85025; 86850; 86900; 86901; 93005; 93306; 93798; 94760; 96374; J1644; J1815; J1940; J3475; U0003; U0005

== ENCOUNTER 2021-03-16 03:31 | Emergency (ER) | payer MEDICARE, MEDICAID ==
[2021-03-16 04:39] LABS: Hemoglobin 9.4 g/dL (12.0-16.0); Mean Corpuscular HGB CONC 29.7 g/dL (32.0-36.0); Mean Corpuscular Hemoglobin 27.6 pg (27.0-31.0); Mean Corpuscular Volume 93.1 fL (78.0-98.0); Platelet Count 347 thou/uL (130-400); RBC Distribution Width 20.6 % (11.5-14.5); Red Blood Cell (RBC) Count 3.41 mill/uL (4.20-5.40); White Blood Cell (WBC) Count 8.2 thou/uL (4.8-10.8)
[2021-03-16 04:57] LABS: ALT (SGPT) 11 U/L (8-55); AST (SGOT) 24 U/L (5-34); Albumin 3.9 g/dL (3.4-4.8); Alkaline Phosphatase 61 U/L (40-110); Anion Gap 14 mmol/L (10-20); BUN (Urea Nitrogen) 14 mg/dL (9.8-20.1); Bilirubin, Total 0.3 mg/dL (0.2-1.2); Calc. Creatinine Clearance 0 mL/min (70-130); Calcium 9.3 mg/dL (7.8-10.44); Carbon Dioxide 25 mmol/L (23-31); Chloride 110 mmol/L (98-107); Glucose 121 mg/dL (80-115); Potassium 3.8 mmol/L (3.5-5.1); Protein, Total 7.9 g/dL (5.8-8.1); Sodium 145 mmol/L (136-145)
[2021-03-16 06:35] LABS: #Basophils 0.1 thou/uL (0.0-0.2); #Eosinphils 0.2 thou/uL (0.0-0.7); #Monocytes 0.7 thou/uL (0.11-0.59); #Neutrophils 6.3 thou/uL (1.40-6.50); %Basophils 0.9 % (0.0-1.0); %Eosinophils 2.7 % (0.0-10.0); %Lymphocytes 11.5 % (21.0-51.0); %Monocytes 7.9 % (0.0-10.0); Anisocytosis SLIGHT = 6-15 cells (100X) (0-5/hpf); MDiff Complete? YES
== END 2021-03-16 06:00 | disposition home or self-care (01) ==
LOC: ERS 03:31
DX: I50.9 Heart failure, unspecified (principal); Z87.891 Personal history of nicotine dependence; Z79.899 Other long term (current) drug therapy; Z79.82 Long term (current) use of aspirin; Z79.84 Long term (current) use of oral hypoglycemic drugs
CPT/HCPCS: 36415; 71045; 80053; 83880; 84484; 85025; 93005

== ENCOUNTER 2022-02-07 07:02 | Observation (INO) | payer MEDICARE, MEDICAID ==
[2022-02-07 08:07] LABS: #Lymphocytes 0.8 thou/uL (1.20-3.40); #Monocytes 0.6 thou/uL (0.11-0.59); #Neutrophils 4.6 thou/uL (1.40-6.50); %Basophils 0.4 % (0.0-1.0); %Eosinophils 0.4 % (0.0-10.0); %Lymphocytes 13.5 % (21.0-51.0); %Monocytes 10.1 % (0.0-10.0); %Neutrophils 75.5 % (42.0-75.0); Hemoglobin 10.1 g/dL (12.0-16.0); Mean Corpuscular HGB CONC 32.4 g/dL (32.0-36.0); Mean Corpuscular Hemoglobin 30.4 pg (27.0-31.0); Mean Corpuscular Volume 93.9 fL (78.0-98.0); Platelet Count 321 thou/uL (130-400); RBC Distribution Width 13.2 % (11.5-14.5); Red Blood Cell (RBC) Count 3.31 mill/uL (4.20-5.40); White Blood Cell (WBC) Count 6.1 thou/uL (4.8-10.8)
[2022-02-07 08:30] LABS: ALT (SGPT) Less than 7 U/L (8-55); AST (SGOT) 23 U/L (5-34); Albumin 3.7 g/dL (3.4-4.8); Alkaline Phosphatase 48 U/L (40-110); BUN (Urea Nitrogen) 25 mg/dL (9.8-20.1); Bilirubin, Total 0.4 mg/dL (0.2-1.2); Calc. Creatinine Clearance 0 mL/min (70-130); Calcium 8.8 mg/dL (7.8-10.44); Carbon Dioxide 23 mmol/L (23-31); Chloride 101 mmol/L (98-107); Estimated GFR 29; Globulin 3.8 g/dL (2.4-3.5); Glucose 89 mg/dL (80-115); Lipase 33 U/L (8-78); Potassium 3.6 mmol/L (3.5-5.1); Protein, Total 7.5 g/dL (5.8-8.1); Sodium 140 mmol/L (136-145)
[2022-02-07 08:35] LABS: Anion Gap 19 mmol/L (10-20)
[2022-02-07 08:45] LABS: CKMB 4.4 ng/mL (0-6.6)
[2022-02-07 08:50] LABS: Bilirubin Negative (Negative); Blood, Urine Negative (Negative); Clarity Clear (Clear); Glucose, Urine (Dipstick) Normal (Negative); Ketone, Urine Negative (Negative); Leukocyte Negative Leu/uL (Negative); Nitrite Negative (Negative); Protein, Urine (Dipstick) 20 mg/dL (Neg-Trace); Specific Gravity, Urine 1.013 (1.002-1.036); Urobilinogen Normal mg/dL (Less than 2); pH, Urine 5.5 (5.0-9.0)
[2022-02-07] MEDS ORDERED: Aspirin Chewable 81 MG TAB ONE (11:49)
[2022-02-07] MEDS ORDERED: Ondansetron PF 4 MG/2 ML Vial IVP PRN (12:34)
[2022-02-07] MEDS ORDERED: Dextrose 5% in Water 1,000 ML IV PRN (12:34)
[2022-02-07] MEDS ORDERED: Dextrose 50% Abboject 50 ML SYRINGE SLOW IVP PRN (12:34)
[2022-02-07] MEDS ORDERED: Acetaminophen 325 MG TAB PO PRN (12:34)
[2022-02-07] MEDS ORDERED: Ondansetron ODT 4 MG TAB PO PRN (12:34)
[2022-02-07] MEDS ORDERED: HumaLOG 300 UNITS/3 ML VIAL SC PRN ×2 (12:34)
[2022-02-07 12:43] VITALS: BMI 21.8
[2022-02-07 12:44] LABS: Troponin I 0.048 ng/mL (< 0.028)
[2022-02-07 13:16] LABS: Magnesium 1.9 mg/dL (1.6-2.6)
[2022-02-07 14:05] LABS: Amphetamine Not Detected (NotDetected); Barbiturates Screen Not Detected (NotDetected); Benzodiazepine Screen Not Detected (NotDetected); Cocaine Metabolite Screen Detected (NotDetected); Methadone Not Detected (NotDetected); Methamphetamine Not Detected (NotDetected); Opiate Screen Detected (NotDetected); Oxycodone Screen Not Detected (NotDetected); Phencyclidine (PCP) Not Detected (NotDetected); THC/Cannabinoid Screen Not Detected (NotDetected); Tricyclic Screen Not Detected (NotDetected)
[2022-02-07 15:02] LABS: Troponin I 0.053 ng/mL (< 0.028)
[2022-02-07 15:59] LABS: SARS-CoV-2 NAA Rapid Test DETECTED (NotDetected)
[2022-02-07] MEDS ORDERED: Albuterol 200 PUFF (6.7GM INHALER) INH PRN (16:54)
[2022-02-07] MEDS ORDERED: Benzonatate 100 MG CAP PO PRN (16:54)
[2022-02-07] MEDS ORDERED: Dexamethasone 4 mg/ml Vial SLOW IVP SCH (17:15)
[2022-02-07] MEDS: Heparin 5,000 UNITS/ML VIAL SC SCH (20:57)
[2022-02-07] MEDS ORDERED: hydrALAZINE 25 MG TAB PO SCH (21:00)
[2022-02-07] MEDS ORDERED: Carvedilol 6.25 MG TAB PO SCH ×2 (21:00)
[2022-02-07] MEDS ORDERED: Isosorbide Dinitrate 20 MG TAB PO SCH (21:00)
[2022-02-08 05:17] LABS: #Lymphocytes 0.6 thou/uL (1.20-3.40); #Monocytes 0.1 thou/uL (0.11-0.59); %Eosinophils 0.1 % (0.0-10.0); %Lymphocytes 15.1 % (21.0-51.0); %Monocytes 3.3 % (0.0-10.0); %Neutrophils 81.4 % (42.0-75.0); Hemoglobin 11.1 g/dL (12.0-16.0); Mean Corpuscular HGB CONC 31.7 g/dL (32.0-36.0); Mean Corpuscular Hemoglobin 30.1 pg (27.0-31.0); Mean Corpuscular Volume 95.2 fL (78.0-98.0); Mean Platelet Volume 7.6 fL (7.4-10.4); Platelet Count 335 thou/uL (130-400); RBC Distribution Width 13.2 % (11.5-14.5); Red Blood Cell (RBC) Count 3.67 mill/uL (4.20-5.40); White Blood Cell (WBC) Count 3.7 thou/uL (4.8-10.8)
[2022-02-08 05:40] LABS: ALT (SGPT) Less than 7 U/L (8-55); AST (SGOT) 20 U/L (5-34); Albumin 3.5 g/dL (3.4-4.8); Alkaline Phosphatase 47 U/L (40-110); Anion Gap 18 mmol/L (10-20); BUN (Urea Nitrogen) 24 mg/dL (9.8-20.1); Bilirubin, Total 0.3 mg/dL (0.2-1.2); Calc. Creatinine Clearance 36 mL/min (70-130); Calcium 9.6 mg/dL (7.8-10.44); Carbon Dioxide 23 mmol/L (23-31); Chloride 103 mmol/L (98-107); Estimated GFR 43; Globulin 4.7 g/dL (2.4-3.5); Glucose 130 mg/dL (80-115); Potassium 3.6 mmol/L (3.5-5.1); Protein, Total 8.2 g/dL (5.8-8.1); Sodium 140 mmol/L (136-145)
[2022-02-08] MEDS ORDERED: Spironolactone 25 MG TAB PO SCH (08:00)
[2022-02-08] MEDS ORDERED: Furosemide 40 MG TAB PO SCH (09:00)
[2022-02-08] MEDS ORDERED: Pantoprazole 40 MG GRANULES PACKET PO SCH (09:00)
[2022-02-08] MEDS ORDERED: Dexamethasone 10 MG/ML VIAL SLOW IVP SCH (09:00)
[2022-02-08] MEDS ORDERED: Potassium Chloride 10 MEQ TAB PO SCH (09:00)
[2022-02-08] MEDS: Heparin 5,000 UNITS/ML VIAL SC SCH ×2 (09:45→19:52)
[2022-02-08] MEDS: Ascorbic Acid 500 mg Chewable Tablet PO SCH (09:45)
[2022-02-08] MEDS: hydrALAZINE 25 MG TAB PO SCH ×3 (09:46→19:52)
[2022-02-08] MEDS: Aspirin 81 mg Enteric Coated Tablet PO SCH (09:46)
[2022-02-08] MEDS: Atorvastatin Calcium 20 MG TAB PO SCH (09:47)
[2022-02-08] MEDS: Carvedilol 6.25 MG TAB PO SCH ×2 (09:47→19:52)
[2022-02-08] MEDS: Zinc Sulfate 220 MG CAP PO SCH (09:47)
[2022-02-08] MEDS: Anastrozole 1 MG TAB PO SCH (09:47)
[2022-02-08] MEDS: Isosorbide Dinitrate 20 MG TAB PO SCH ×3 (09:47→19:52)
[2022-02-08] MEDS: Cholecalciferol (Vitamin D3) 400 UNITS TAB PO SCH (09:47)
[2022-02-08] MEDS ORDERED: Electrolyte Replacement Protocol 1 EACH FS SCH (21:00)
[2022-02-08] MEDS ORDERED: diphenhydrAMINE 25 MG CAP PO SCH (21:15)
[2022-02-08] MEDS ORDERED: Magnesium 2 GM/50 ML(in water) 2 GM in Premix Bag 1 BAG IVPB SCH (22:30)
[2022-02-09 04:55] LABS: #Lymphocytes 0.8 thou/uL (1.20-3.40); #Monocytes 0.5 thou/uL (0.11-0.59); #Neutrophils 5.8 thou/uL (1.40-6.50); %Basophils 0.1 % (0.0-1.0); %Eosinophils 0.1 % (0.0-10.0); %Lymphocytes 10.7 % (21.0-51.0); %Monocytes 6.9 % (0.0-10.0); %Neutrophils 82.3 % (42.0-75.0); Hemoglobin 10.7 g/dL (12.0-16.0); Mean Corpuscular HGB CONC 32.3 g/dL (32.0-36.0); Mean Corpuscular Hemoglobin 30.6 pg (27.0-31.0); Mean Corpuscular Volume 94.9 fL (78.0-98.0); Platelet Count 351 thou/uL (130-400); RBC Distribution Width 13.1 % (11.5-14.5); Red Blood Cell (RBC) Count 3.51 mill/uL (4.20-5.40)
[2022-02-09 05:04] LABS: Anion Gap 14 mmol/L (10-20); BUN (Urea Nitrogen) 26 mg/dL (9.8-20.1); Calc. Creatinine Clearance 43 mL/min (70-130); Calcium 9.4 mg/dL (7.8-10.44); Carbon Dioxide 23 mmol/L (23-31); Chloride 103 mmol/L (98-107); Estimated GFR 53; Glucose 141 mg/dL (80-115); Magnesium 2.3 mg/dL (1.6-2.6); Potassium 3.4 mmol/L (3.5-5.1); Sodium 137 mmol/L (136-145)
[2022-02-09] MEDS ORDERED: Potassium Chloride 20 MEQ TAB PO SCH (08:00)
[2022-02-09] MEDS ORDERED: Dexamethasone 4 MG TAB PO SCH (08:00)
[2022-02-09 08:40] VITALS: BP 119/67; TEMP 97.5
[2022-02-09] MEDS: Isosorbide Dinitrate 20 MG TAB PO SCH (09:37)
[2022-02-09] MEDS: Heparin 5,000 UNITS/ML VIAL SC SCH (09:38)
[2022-02-09] MEDS: Zinc Sulfate 220 MG CAP PO SCH (09:38)
[2022-02-09] MEDS: Carvedilol 6.25 MG TAB PO SCH (09:38)
[2022-02-09] MEDS: Anastrozole 1 MG TAB PO SCH (09:38)
[2022-02-09] MEDS: Atorvastatin Calcium 20 MG TAB PO SCH (09:38)
[2022-02-09] MEDS: Aspirin 81 mg Enteric Coated Tablet PO SCH (09:38)
[2022-02-09] MEDS: Cholecalciferol (Vitamin D3) 400 UNITS TAB PO SCH (09:38)
[2022-02-09] MEDS: hydrALAZINE 25 MG TAB PO SCH (09:38)
[2022-02-09] MEDS: Ascorbic Acid 500 mg Chewable Tablet PO SCH (09:38)
== END 2022-02-09 12:50 | disposition home or self-care (01) ==
LOC: ERS 07:02 → 2SW 11:24
PROVIDERS: ADMIT Internal Medicine; ATTEND Internal Medicine
DX: U07.1 COVID-19 (principal); J96.01 Acute respiratory failure with hypoxia; E86.0 Dehydration; I13.0 Hypertensive heart and chronic kidney disease with heart failure and stage 1 through stage 4 chronic kidney disease, or unspecified chronic kidney disease; E11.22 Type 2 diabetes mellitus with diabetic chronic kidney disease; N18.30 Chronic kidney disease, stage 3 unspecified; I50.22 Chronic systolic (congestive) heart failure; N17.9 Acute kidney failure, unspecified; D63.1 Anemia in chronic kidney disease; E87.6 Hypokalemia; I42.8 Other cardiomyopathies; I25.10 Atherosclerotic heart disease of native coronary artery without angina pectoris; N20.0 Calculus of kidney; I70.0 Atherosclerosis of aorta; I08.8 Other rheumatic multiple valve diseases; E78.00 Pure hypercholesterolemia, unspecified; F14.10 Cocaine abuse, uncomplicated; Z85.3 Personal history of malignant neoplasm of breast; Z87.891 Personal history of nicotine dependence; Z79.811 Long term (current) use of aromatase inhibitors; Z79.82 Long term (current) use of aspirin; Z79.84 Long term (current) use of oral hypoglycemic drugs; Z79.899 Other long term (current) drug therapy; Z88.8 Allergy status to other drugs, medicaments and biological substances; Z95.810 Presence of automatic (implantable) cardiac defibrillator
CPT/HCPCS: 71045; 74176; 80048; 80053; 80306; 81003; 82553; 82962 ×3; 83690; 83735 ×2; 83880; 84484 ×2; 85025 ×2; 86140; 93005; 93306; 96365; 96372 ×3; 96375; 96376; 99285; G0378 ×3; U0002; 36415; 36416; 84443; J1100; J1644; J3475; J8540

== ENCOUNTER 2022-09-13 16:58 | Emergency (ER) | payer MEDICARE, MEDICAID ==
[2022-09-13] MEDS ORDERED: hydrOXYzine 25 MG TAB ONE ×2 (17:46→19:18)
[2022-09-13 18:02] LABS: #Eosinphils 0.1 thou/uL (0.0-0.7); #Lymphocytes 1.1 thou/uL (1.20-3.40); #Monocytes 0.9 thou/uL (0.11-0.59); #Neutrophils 6.6 thou/uL (1.40-6.50); %Basophils 0.4 % (0.0-1.0); %Eosinophils 1.3 % (0.0-10.0); %Monocytes 9.8 % (0.0-10.0); %Neutrophils 75.6 % (42.0-75.0); Hemoglobin 8.4 g/dL (12.0-16.0); Mean Corpuscular HGB CONC 32.4 g/dL (32.0-36.0); Mean Corpuscular Hemoglobin 28.1 pg (27.0-31.0); Mean Corpuscular Volume 86.7 fl (78.0-98.0); Mean Platelet Volume 7.9 fL (7.4-10.4); Platelet Count 303 10x3/uL (130-400); RBC Distribution Width 15.5 % (11.5-14.5); Red Blood Cell (RBC) Count 2.99 mill/uL (4.20-5.40); White Blood Cell (WBC) Count 8.7 10x3/uL (4.8-10.8)
[2022-09-13 18:16] LABS: ALT (SGPT) 9 U/L (8-55); AST (SGOT) 17 U/L (5-34); Albumin 3.6 g/dL (3.4-4.8); Alkaline Phosphatase 65 U/L (40-110); Anion Gap 15 mmol/L (10-20); BUN (Urea Nitrogen) 11 mg/dL (9.8-20.1); Bilirubin, Total 0.3 mg/dL (0.2-1.2); Calc. Creatinine Clearance 0 mL/min (70-130); Calcium 9.6 mg/dL (7.8-10.44); Carbon Dioxide 25 mmol/L (23-31); Chloride 103 mmol/L (98-107); Estimated GFR 39; Globulin 4.4 g/dL (2.4-3.5); Glucose 108 mg/dL (80-115); Potassium 3.2 mmol/L (3.5-5.1); Sodium 140 mmol/L (136-145)
[2022-09-13] MEDS ORDERED: Potassium Bicarbonate/Cit Ac 25 MEQ TAB PO SCH (19:30)
== END 2022-09-13 19:42 | disposition home or self-care (01) ==
LOC: ERS 16:58
DX: L29.9 Pruritus, unspecified (principal); D64.9 Anemia, unspecified; R79.82 Elevated C-reactive protein (CRP); I11.0 Hypertensive heart disease with heart failure; I50.9 Heart failure, unspecified; E11.9 Type 2 diabetes mellitus without complications; F17.210 Nicotine dependence, cigarettes, uncomplicated; Z79.82 Long term (current) use of aspirin; Z79.899 Other long term (current) drug therapy; Z79.84 Long term (current) use of oral hypoglycemic drugs
CPT/HCPCS: 36415; 80053; 85025; 99283

== ENCOUNTER 2022-10-21 06:26 | Day surgery (SDC) | payer MEDICARE, MEDICAID ==
[2022-10-20 14:28] VITALS: BMI 23.0
[2022-10-21] MEDS ORDERED: PROPOFOL 200 MG/20 ML VIAL ONE (08:16)
== END 2022-10-21 09:20 | disposition home or self-care (01) ==
LOC: SDC 06:26
PROVIDERS: ATTEND Internal Medicine Gastroenterology
PROC: 0DJD8ZZ Inspection of Lower Intestinal Tract, Via Natural or Artificial Opening Endoscopic (ICD-10-PCS; principal; 2022-10-21)
DX: Z12.11 Encounter for screening for malignant neoplasm of colon (principal); K57.30 Diverticulosis of large intestine without perforation or abscess without bleeding; I11.0 Hypertensive heart disease with heart failure; I50.9 Heart failure, unspecified; I25.10 Atherosclerotic heart disease of native coronary artery without angina pectoris; E11.40 Type 2 diabetes mellitus with diabetic neuropathy, unspecified; K21.9 Gastro-esophageal reflux disease without esophagitis; E78.00 Pure hypercholesterolemia, unspecified; F17.200 Nicotine dependence, unspecified, uncomplicated; Z85.3 Personal history of malignant neoplasm of breast; Z86.010 Personal history of colon polyps; Z80.0 Family history of malignant neoplasm of digestive organs; Z79.811 Long term (current) use of aromatase inhibitors; Z79.82 Long term (current) use of aspirin; Z79.84 Long term (current) use of oral hypoglycemic drugs; Z79.899 Other long term (current) drug therapy; Z88.8 Allergy status to other drugs, medicaments and biological substances; Z95.810 Presence of automatic (implantable) cardiac defibrillator
CPT/HCPCS: J2704

== ENCOUNTER 2022-12-24 16:12 | Inpatient (IN) | payer MEDICARE, MEDICAID ==
[2022-12-24] MEDS ORDERED: Metoprolol Tartrate 5 MG/5 ML VIAL ONE (17:21)
[2022-12-24 17:38] LABS: #Monocytes 0.8 thou/uL (0.11-0.59); #Neutrophils 8.2 thou/uL (1.40-6.50); %Basophils 0.1 % (0.0-1.0); %Eosinophils 0.3 % (0.0-10.0); %Lymphocytes 6.9 % (21.0-51.0); %Monocytes 8.1 % (0.0-10.0); Hemoglobin 7.2 g/dL (12.0-16.0); Mean Corpuscular HGB CONC 31.2 g/dL (32.0-36.0); Mean Corpuscular Hemoglobin 25.1 pg (27.0-31.0); Mean Corpuscular Volume 80.5 fl (78.0-98.0); Mean Platelet Volume 11.6 fL (7.4-10.4); Platelet Count 277 10x3/uL (130-400); RBC Distribution Width 20.3 % (11.5-14.5); Red Blood Cell (RBC) Count 2.87 mill/uL (4.20-5.40); White Blood Cell (WBC) Count 9.8 10x3/uL (4.8-10.8)
[2022-12-24 18:11] LABS: Anisocytosis SLIGHT = 6-15 cells HPF (0-5); Burr Cells SLIGHT = 2-5 cells HPF (0-1); CellaVision Operator ID LAB.MJL; Ovalocytes SLIGHT = 2-5 cells HPF (0-1); Platelet Adequacy Comment Platelets Normal; Poikilocytosis SLIGHT = 6-15 cells HPF (0-5); Polychromasia MODERATE = 3-4 cells HPF (0-2); Target Cells SLIGHT = 2-5 cells HPF (0-1)
[2022-12-24 18:36] LABS: Albumin 3.2 g/dL (3.4-4.8)
[2022-12-24 18:37] LABS: Chloride 105 mmol/L (98-107); Sodium 137 mmol/L (136-145)
[2022-12-24 18:38] LABS: Calcium 9.3 mg/dL (7.8-10.44); Glucose 168 mg/dL (80-115)
[2022-12-24 18:39] LABS: Globulin 4.1 g/dL (2.4-3.5); Protein, Total 7.3 g/dL (5.8-8.1)
[2022-12-24 18:40] LABS: Bilirubin, Total 0.9 mg/dL (0.2-1.2); Carbon Dioxide 15 mmol/L (23-31)
[2022-12-24 18:41] LABS: Alkaline Phosphatase 454 U/L (40-110)
[2022-12-24 18:42] LABS: Calc. Creatinine Clearance 0 mL/min (70-130); Estimated GFR 21
[2022-12-24 18:43] LABS: BUN (Urea Nitrogen) 50 mg/dL (9.8-20.1)
[2022-12-24 18:44] LABS: ALT (SGPT) 144 U/L (8-55); AST (SGOT) 64 U/L (5-34)
[2022-12-24 18:45] LABS: CKMB 4.8 ng/mL (0-6.6); Magnesium 2.2 mg/dL (1.6-2.6)
[2022-12-24 18:56] LABS: Anion Gap 21 mmol/L (10-20)
[2022-12-24] MEDS ORDERED: Furosemide 40 MG/4 ML VIAL ONE (19:13)
[2022-12-24] MEDS ORDERED: Acetaminophen 325 MG TAB PO PRN (20:15)
[2022-12-24] MEDS ORDERED: Ondansetron PF 4 MG/2 ML Vial IVP PRN (20:15)
[2022-12-24] MEDS ORDERED: Ondansetron ODT 4 MG TAB SL PRN (20:15)
[2022-12-24 21:23] LABS: Troponin I 0.122 ng/mL (< 0.028)
[2022-12-25 01:18] LABS: Troponin I 0.111 ng/mL (< 0.028)
[2022-12-25 04:25] LABS: Amphetamine Not Detected (NotDetected); Barbiturates Screen Not Detected (NotDetected); Benzodiazepine Screen Not Detected (NotDetected); Cocaine Metabolite Screen Not Detected (NotDetected); Methadone Not Detected (NotDetected); Methamphetamine Not Detected (NotDetected); Opiate Screen Not Detected (NotDetected); Oxycodone Screen Not Detected (NotDetected); Phencyclidine (PCP) Not Detected (NotDetected); THC/Cannabinoid Screen Not Detected (NotDetected); Tricyclic Screen Not Detected (NotDetected)
[2022-12-25 04:42] LABS: #Monocytes 0.9 thou/uL (0.11-0.59); #Neutrophils 8.6 thou/uL (1.40-6.50); %Basophils 0.1 % (0.0-1.0); %Eosinophils 0.3 % (0.0-10.0); %Lymphocytes 6.6 % (21.0-51.0); %Neutrophils 83.3 % (42.0-75.0); Hemoglobin 6.8 g/dL (12.0-16.0); Mean Corpuscular HGB CONC 31.3 g/dL (32.0-36.0); Mean Corpuscular Hemoglobin 25.2 pg (27.0-31.0); Mean Corpuscular Volume 80.4 fl (78.0-98.0); Mean Platelet Volume 11.7 fL (7.4-10.4); Platelet Count 258 10x3/uL (130-400); RBC Distribution Width 20.7 % (11.5-14.5); White Blood Cell (WBC) Count 10.3 10x3/uL (4.8-10.8)
[2022-12-25 04:55] LABS: Manual Diff?? YES
[2022-12-25 05:09] LABS: ALT (SGPT) 131 U/L (8-55); AST (SGOT) 52 U/L (5-34); Albumin 3.2 g/dL (3.4-4.8); Alkaline Phosphatase 451 U/L (40-110); Anion Gap 15 mmol/L (10-20); BUN (Urea Nitrogen) 52 mg/dL (9.8-20.1); Bilirubin, Total 0.7 mg/dL (0.2-1.2); Calc. Creatinine Clearance 22 mL/min (70-130); Calcium 9.2 mg/dL (7.8-10.44); Carbon Dioxide 20 mmol/L (23-31); Chloride 105 mmol/L (98-107); Estimated GFR 23; Glucose 176 mg/dL (80-115); Potassium 4.4 mmol/L (3.5-5.1); Protein, Total 7.2 g/dL (5.8-8.1); Sodium 136 mmol/L (136-145)
[2022-12-25] MEDS: Furosemide 40 MG/4 ML VIAL SLOW IVP SCH ×2 (05:26→13:54)
[2022-12-25 05:41] LABS: Anisocytosis MARKED = >30 cells HPF (0-5); Burr Cells SLIGHT = 2-5 cells HPF (0-1); Hypochromia SLIGHT = 6-15 cells HPF (0-5); Lymphocytes 4 % (21-51); Macrocytosis MARKED = >30 cells HPF (0-5); Monocytes 9 % (0-10); Myelocyte 1 % (0-0); Neutrophil 86 % (42-75); Platelet Adequacy Comment Platelets Normal; Polychromasia MODERATE = 3-4 cells HPF (0-2); Target Cells SLIGHT = 2-5 cells HPF (0-1); Tear Drops SLIGHT = 2-5 cells HPF (0-1); Total Cell Count 117
[2022-12-25] MEDS: Spironolactone 25 MG TAB PO SCH (08:23)
[2022-12-25] MEDS: Famotidine 20 MG TAB PO SCH (08:23)
[2022-12-25] MEDS: Atorvastatin Calcium 20 MG TAB PO SCH (08:23)
[2022-12-25] MEDS: Carvedilol 6.25 MG TAB PO SCH ×2 (08:23→22:13)
[2022-12-25] MEDS: Anastrozole 1 MG TAB PO SCH (08:23)
[2022-12-25] MEDS: Aspirin Chewable 81 MG TAB PO SCH (08:23)
[2022-12-25] MEDS ORDERED: dilTIAZem 125 MG in Sodium Chloride 0.9% 100 ML IVPB SCH (13:00)
[2022-12-25] MEDS: Pantoprazole 40 MG VIAL IVP SCH (22:13)
[2022-12-25] MEDS: Polyvinyl Alcohol 1.4%/Povidone 0.6% Opth Drops EA EYE SCH (22:13)
[2022-12-25] MEDS ORDERED: Acetaminophen 325 MG TAB PO PRN (22:42)
[2022-12-25] MEDS ORDERED: traMADol HCl 50 MG TAB PO SCH (22:45)
[2022-12-25] MEDS ORDERED: Acetaminophen 500 MG TAB PO SCH (22:45)
[2022-12-26 03:49] LABS: Hemoglobin 7.5 g/dL (12.0-16.0); Mean Corpuscular Volume 80.7 fl (78.0-98.0); Mean Platelet Volume 11.6 fL (7.4-10.4); Platelet Count 250 10x3/uL (130-400); RBC Distribution Width 22.3 % (11.5-14.5); White Blood Cell (WBC) Count 10.8 10x3/uL (4.8-10.8)
[2022-12-26 04:00] LABS: Delete Auto Diff?? YES; Manual Diff?? YES
[2022-12-26 04:12] LABS: Anion Gap 18 mmol/L (10-20); BUN (Urea Nitrogen) 54 mg/dL (9.8-20.1); Calc. Creatinine Clearance 21 mL/min (70-130); Calcium 8.8 mg/dL (7.8-10.44); Carbon Dioxide 18 mmol/L (23-31); Chloride 103 mmol/L (98-107); Estimated GFR 22; Glucose 200 mg/dL (80-115); Potassium 4.5 mmol/L (3.5-5.1); Sodium 134 mmol/L (136-145)
[2022-12-26 04:28] LABS: Anisocytosis MARKED = >30 cells HPF (0-5); Band 6 % (5-11); CellaVision Operator ID LAB.CLH1; Eosinophils 1 % (0-10); Hypochromia MODERATE=16-30 cells HPF (0-5); Lymphocytes 10 % (21-51); Macrocytosis MODERATE=16-30 cells HPF (0-5); Monocytes 1 % (0-10); Neutrophil 82 % (42-75); Nucleated RBC (Manual Ct) 14 % (0); Platelet Adequacy Comment Platelets Normal; Poikilocytosis SLIGHT = 6-15 cells HPF (0-5); Polychromasia MODERATE = 3-4 cells HPF (0-2); Target Cells MODERATE= 6-15 cells HPF (0-1); Total Cell Count 100
[2022-12-26] MEDS: Furosemide 40 MG/4 ML VIAL SLOW IVP SCH ×2 (06:20→14:30)
[2022-12-26] MEDS: Aspirin Chewable 81 MG TAB PO SCH (09:16)
[2022-12-26] MEDS: Pantoprazole 40 MG VIAL IVP SCH ×2 (09:16→21:40)
[2022-12-26] MEDS: Spironolactone 25 MG TAB PO SCH (09:16)
[2022-12-26] MEDS: Atorvastatin Calcium 20 MG TAB PO SCH (09:16)
[2022-12-26] MEDS: Famotidine 20 MG TAB PO SCH (09:16)
[2022-12-26] MEDS: Carvedilol 6.25 MG TAB PO SCH ×2 (09:16→21:40)
[2022-12-26] MEDS: Anastrozole 1 MG TAB PO SCH (09:16)
[2022-12-26] MEDS: Polyvinyl Alcohol 1.4%/Povidone 0.6% Opth Drops EA EYE SCH ×2 (12:39→21:46)
[2022-12-27 04:22] LABS: #Monocytes 0.8 thou/uL (0.11-0.59); #Neutrophils 9.7 thou/uL (1.40-6.50); %Basophils 0.1 % (0.0-1.0); %Eosinophils 0.3 % (0.0-10.0); %Lymphocytes 6.5 % (21.0-51.0); %Monocytes 7.1 % (0.0-10.0); Hemoglobin 7.6 g/dL (12.0-16.0); Mean Corpuscular Hemoglobin 24.7 pg (27.0-31.0); Mean Corpuscular Volume 79.5 fl (78.0-98.0); Mean Platelet Volume 10.9 fL (7.4-10.4); Platelet Count 247 10x3/uL (130-400); RBC Distribution Width 21.6 % (11.5-14.5); Red Blood Cell (RBC) Count 3.08 mill/uL (4.20-5.40); White Blood Cell (WBC) Count 11.4 10x3/uL (4.8-10.8)
[2022-12-27 04:49] LABS: ALT (SGPT) 100 U/L (8-55); AST (SGOT) 49 U/L (5-34); Albumin 3.1 g/dL (3.4-4.8); Alkaline Phosphatase 433 U/L (40-110); Anion Gap 17 mmol/L (10-20); BUN (Urea Nitrogen) 61 mg/dL (9.8-20.1); Bilirubin, Total 2.4 mg/dL (0.2-1.2); Calc. Creatinine Clearance 20 mL/min (70-130); Carbon Dioxide 18 mmol/L (23-31); Chloride 102 mmol/L (98-107); Estimated GFR 19; Globulin 3.9 g/dL (2.4-3.5); Glucose 156 mg/dL (80-115); Potassium 4.3 mmol/L (3.5-5.1); Sodium 133 mmol/L (136-145)
[2022-12-27] MEDS: Furosemide 40 MG/4 ML VIAL SLOW IVP SCH ×2 (07:36→14:38)
[2022-12-27] MEDS ORDERED: Metoprolol Tartrate 5 MG/5 ML VIAL IVP PRN (09:14)
[2022-12-27] MEDS: Atorvastatin Calcium 20 MG TAB PO SCH (10:08)
[2022-12-27] MEDS: Aspirin Chewable 81 MG TAB PO SCH (10:08)
[2022-12-27] MEDS: Anastrozole 1 MG TAB PO SCH (10:08)
[2022-12-27] MEDS: Famotidine 20 MG TAB PO SCH (10:08)
[2022-12-27] MEDS: Pantoprazole 40 MG VIAL IVP SCH ×2 (10:08→21:46)
[2022-12-27] MEDS: Polyvinyl Alcohol 1.4%/Povidone 0.6% Opth Drops EA EYE SCH ×2 (10:10→21:46)
[2022-12-27] MEDS: Carvedilol 6.25 MG TAB PO SCH ×2 (10:12→21:47)
[2022-12-27] MEDS: Spironolactone 25 MG TAB PO SCH (10:13)
[2022-12-27] MEDS ORDERED: Dextrose 50% Abboject 50 ML SYRINGE SLOW IVP PRN (14:57)
[2022-12-27] MEDS ORDERED: Glucagon 1 MG/ML KIT IM PRN (14:57)
[2022-12-27] MEDS ORDERED: Dextrose 5% in Water 1,000 ML IV PRN (14:57)
[2022-12-27] MEDS: HumaLOG 300 UNITS/3 ML VIAL SC PRN ×2 (17:46→21:45)
[2022-12-28 05:27] LABS: Hemoglobin 9.4 g/dL (12.0-16.0); Mean Corpuscular HGB CONC 32.1 g/dL (32.0-36.0); Mean Corpuscular Hemoglobin 25.1 pg (27.0-31.0); Mean Corpuscular Volume 78.3 fl (78.0-98.0); Platelet Count 256 10x3/uL (130-400); RBC Distribution Width 20.2 % (11.5-14.5); Red Blood Cell (RBC) Count 3.74 mill/uL (4.20-5.40); White Blood Cell (WBC) Count 10.8 10x3/uL (4.8-10.8)
[2022-12-28] MEDS: Furosemide 40 MG/4 ML VIAL SLOW IVP SCH ×2 (05:40→14:19)
[2022-12-28 05:51] LABS: ALT (SGPT) 89 U/L (8-55); AST (SGOT) 47 U/L (5-34); Alkaline Phosphatase 478 U/L (40-110); Anion Gap 17 mmol/L (10-20); BUN (Urea Nitrogen) 61 mg/dL (9.8-20.1); Calc. Creatinine Clearance 19 mL/min (70-130); Carbon Dioxide 16 mmol/L (23-31); Chloride 104 mmol/L (98-107); Estimated GFR 18; Glucose 131 mg/dL (80-115); Potassium 4.3 mmol/L (3.5-5.1); Sodium 133 mmol/L (136-145)
[2022-12-28 06:12] LABS: Delete Auto Diff?? YES; Manual Diff?? YES
[2022-12-28 06:55] LABS: Band 4 % (5-11); Burr Cells SLIGHT = 2-5 cells HPF (0-1); CellaVision Operator ID LAB.GE; Hypochromia SLIGHT = 6-15 cells HPF (0-5); Lymphocytes 4 % (21-51); Microcytosis SLIGHT = 6-15 cells HPF (0-5); Monocytes 3 % (0-10); Neutrophil 89 % (42-75); Nucleated RBC (Manual Ct) 18 % (0); Platelet Adequacy Comment Platelets Normal; Poikilocytosis SLIGHT = 6-15 cells HPF (0-5); Polychromasia MODERATE = 3-4 cells HPF (0-2); Total Cell Count 100
[2022-12-28] MEDS: Anastrozole 1 MG TAB PO SCH (09:26)
[2022-12-28] MEDS: Atorvastatin Calcium 20 MG TAB PO SCH (09:27)
[2022-12-28] MEDS: Aspirin Chewable 81 MG TAB PO SCH (09:27)
[2022-12-28] MEDS: Pantoprazole 40 MG VIAL IVP SCH ×2 (09:27→21:24)
[2022-12-28] MEDS: Polyvinyl Alcohol 1.4%/Povidone 0.6% Opth Drops EA EYE SCH ×2 (09:27→21:25)
[2022-12-28] MEDS: Spironolactone 25 MG TAB PO SCH (09:27)
[2022-12-28] MEDS ORDERED: Ferrous Sulfate 325 MG TAB PO SCH (09:45)
[2022-12-28] MEDS: Carvedilol 6.25 MG TAB PO SCH ×2 (10:13→21:24)
[2022-12-28] MEDS: HumaLOG 300 UNITS/3 ML VIAL SC PRN ×3 (11:30→21:29)
[2022-12-29 04:38] LABS: #Eosinphils 0.1 thou/uL (0.0-0.7); #Monocytes 0.8 thou/uL (0.11-0.59); #Neutrophils 8.2 thou/uL (1.40-6.50); %Basophils 0.1 % (0.0-1.0); %Eosinophils 0.5 % (0.0-10.0); %Lymphocytes 6.5 % (21.0-51.0); %Monocytes 8.5 % (0.0-10.0); %Neutrophils 83.9 % (42.0-75.0); Mean Corpuscular HGB CONC 31.5 g/dL (32.0-36.0); Mean Corpuscular Hemoglobin 25.4 pg (27.0-31.0); Mean Platelet Volume 11.5 fL (7.4-10.4); Platelet Count 255 10x3/uL (130-400); RBC Distribution Width 20.9 % (11.5-14.5); Red Blood Cell (RBC) Count 3.54 mill/uL (4.20-5.40); White Blood Cell (WBC) Count 9.7 10x3/uL (4.8-10.8)
[2022-12-29 05:02] LABS: Mean Corpuscular Volume 80.8 fl (78.0-98.0)
[2022-12-29 05:17] LABS: ALT (SGPT) 80 U/L (8-55); AST (SGOT) 42 U/L (5-34); Albumin 3.1 g/dL (3.4-4.8); Alkaline Phosphatase 487 U/L (40-110); Anion Gap 18 mmol/L (10-20); BUN (Urea Nitrogen) 64 mg/dL (9.8-20.1); Bilirubin, Total 1.1 mg/dL (0.2-1.2); Calc. Creatinine Clearance 19 mL/min (70-130); Calcium 9.3 mg/dL (7.8-10.44); Carbon Dioxide 16 mmol/L (23-31); Chloride 105 mmol/L (98-107); Estimated GFR 17; Glucose 113 mg/dL (80-115); Potassium 4.2 mmol/L (3.5-5.1); Protein, Total 7.1 g/dL (5.8-8.1); Sodium 135 mmol/L (136-145)
[2022-12-29] MEDS: Furosemide 40 MG/4 ML VIAL SLOW IVP SCH ×2 (06:11→14:33)
[2022-12-29] MEDS: Anastrozole 1 MG TAB PO SCH (09:01)
[2022-12-29] MEDS: Atorvastatin Calcium 20 MG TAB PO SCH (09:01)
[2022-12-29] MEDS: Aspirin Chewable 81 MG TAB PO SCH (09:01)
[2022-12-29] MEDS: Ferrous Sulfate 325 MG TAB PO SCH (09:01)
[2022-12-29] MEDS: Carvedilol 6.25 MG TAB PO SCH ×2 (09:01→20:26)
[2022-12-29] MEDS: Polyvinyl Alcohol 1.4%/Povidone 0.6% Opth Drops EA EYE SCH ×2 (09:02→20:24)
[2022-12-29] MEDS: Pantoprazole 40 MG VIAL IVP SCH ×2 (09:02→20:26)
[2022-12-29] MEDS: Spironolactone 25 MG TAB PO SCH (09:02)
[2022-12-29] MEDS: HumaLOG 300 UNITS/3 ML VIAL SC PRN ×3 (11:11→21:14)
[2022-12-30 04:39] LABS: #Monocytes 0.7 thou/uL (0.11-0.59); #Neutrophils 7.9 thou/uL (1.40-6.50); %Basophils 0.1 % (0.0-1.0); %Eosinophils 0.4 % (0.0-10.0); %Lymphocytes 6.5 % (21.0-51.0); %Monocytes 7.8 % (0.0-10.0); %Neutrophils 84.7 % (42.0-75.0); Hemoglobin 9.3 g/dL (12.0-16.0); Mean Corpuscular HGB CONC 32.7 g/dL (32.0-36.0); Mean Corpuscular Hemoglobin 25.8 pg (27.0-31.0); Mean Corpuscular Volume 78.9 fl (78.0-98.0); Mean Platelet Volume 11.6 fL (7.4-10.4); Platelet Count 236 10x3/uL (130-400); RBC Distribution Width 21.5 % (11.5-14.5); White Blood Cell (WBC) Count 9.3 10x3/uL (4.8-10.8)
[2022-12-30 05:28] LABS: ALT (SGPT) 73 U/L (8-55); AST (SGOT) 39 U/L (5-34)
[2022-12-30] MEDS: Furosemide 40 MG/4 ML VIAL SLOW IVP SCH ×2 (05:33→13:20)
[2022-12-30 05:44] LABS: Albumin 3.1 g/dL (3.4-4.8)
[2022-12-30 06:08] LABS: Alkaline Phosphatase 483 U/L (40-110); Anion Gap 17 mmol/L (10-20); BUN (Urea Nitrogen) 66 mg/dL (9.8-20.1); Bilirubin, Total 1.1 mg/dL (0.2-1.2); Calc. Creatinine Clearance 17 mL/min (70-130); Calcium 9.2 mg/dL (7.8-10.44); Carbon Dioxide 15 mmol/L (23-31); Chloride 104 mmol/L (98-107); Estimated GFR 17; Globulin 3.9 g/dL (2.4-3.5); Glucose 129 mg/dL (80-115); Potassium 4.2 mmol/L (3.5-5.1); Sodium 132 mmol/L (136-145)
[2022-12-30 07:01] LABS: Burr Cells SLIGHT = 2-5 cells HPF (0-1); CellaVision Operator ID LAB.GE; Hypochromia SLIGHT = 6-15 cells HPF (0-5); Microcytosis SLIGHT = 6-15 cells HPF (0-5); Platelet Adequacy Comment Platelets Normal; Polychromasia MODERATE = 3-4 cells HPF (0-2)
[2022-12-30] MEDS: Atorvastatin Calcium 20 MG TAB PO SCH (08:35)
[2022-12-30] MEDS: Anastrozole 1 MG TAB PO SCH (08:35)
[2022-12-30] MEDS: Ferrous Sulfate 325 MG TAB PO SCH (08:35)
[2022-12-30] MEDS: Aspirin Chewable 81 MG TAB PO SCH (08:35)
[2022-12-30] MEDS: Spironolactone 25 MG TAB PO SCH (08:35)
[2022-12-30] MEDS: Pantoprazole 40 MG VIAL IVP SCH (08:36)
[2022-12-30] MEDS: Carvedilol 6.25 MG TAB PO SCH (08:43)
[2022-12-30] MEDS: Polyvinyl Alcohol 1.4%/Povidone 0.6% Opth Drops EA EYE SCH (08:44)
[2022-12-30 11:29] VITALS: BP 101/69; TEMP 97.3
[2022-12-30 13:07] VITALS: BMI 22.6
== END 2022-12-30 16:20 | disposition home health service (06) | DRG 280 ==
LOC: ERS 16:12 → 2NO 20:12
PROVIDERS: ADMIT Student in an Organized Health Care Education/Training Program; ATTEND Internal Medicine
PROC: 30233N1 Transfusion of Nonautologous Red Blood Cells into Peripheral Vein, Percutaneous Approach (ICD-10-PCS; principal; 2022-12-25)
DX: I13.0 Hypertensive heart and chronic kidney disease with heart failure and stage 1 through stage 4 chronic kidney disease, or unspecified chronic kidney disease (principal); I50.23 Acute on chronic systolic (congestive) heart failure; I21.A1 Myocardial infarction type 2; N17.9 Acute kidney failure, unspecified; J96.11 Chronic respiratory failure with hypoxia; D63.1 Anemia in chronic kidney disease; I48.91 Unspecified atrial fibrillation; N18.9 Chronic kidney disease, unspecified; R74.01 Elevation of levels of liver transaminase levels; E11.22 Type 2 diabetes mellitus with diabetic chronic kidney disease; E78.5 Hyperlipidemia, unspecified; I42.8 Other cardiomyopathies; F14.10 Cocaine abuse, uncomplicated; Z60.2 Problems related to living alone; I25.10 Atherosclerotic heart disease of native coronary artery without angina pectoris; F17.210 Nicotine dependence, cigarettes, uncomplicated; Z90.710 Acquired absence of both cervix and uterus; Z98.49 Cataract extraction status, unspecified eye; Z95.810 Presence of automatic (implantable) cardiac defibrillator; Z79.899 Other long term (current) drug therapy; Z79.84 Long term (current) use of oral hypoglycemic drugs; Z88.8 Allergy status to other drugs, medicaments and biological substances; Z90.11 Acquired absence of right breast and nipple
CPT/HCPCS: 36415; 36416; 36430; 71045; 74018; 80048; 80053; 80306; 82553; 83735; 83880; 84484; 85025; 86850; 86900; 86901; 93005; 93798; 96374; 96375; C9113; J1815; J1940; J3490; P9016

== ENCOUNTER 2023-01-11 10:16 | Inpatient (IN) | payer MEDICARE, MEDICAID ==
[2023-01-11 10:45] LABS: Hemoglobin 10.8 g/dL (12.0-16.0); Mean Corpuscular Hemoglobin 25.2 pg (27.0-31.0); Mean Corpuscular Volume 83.9 fl (78.0-98.0); Mean Platelet Volume 11.3 fL (7.4-10.4); Platelet Count 332 10x3/uL (130-400); RBC Distribution Width 23.2 % (11.5-14.5); Red Blood Cell (RBC) Count 4.29 mill/uL (4.20-5.40); White Blood Cell (WBC) Count 8.1 10x3/uL (4.8-10.8)
[2023-01-11 11:02] LABS: Delete Auto Diff?? YES; Manual Diff?? YES
[2023-01-11 11:30] LABS: CKMB 6.8 ng/mL (0-6.6)
[2023-01-11] MEDS ORDERED: Cefepime 2 GM VIAL ONE (11:37)
[2023-01-11 12:06] LABS: Albumin 3.1 g/dL (3.4-4.8)
[2023-01-11 12:07] LABS: Calcium 9.4 mg/dL (7.8-10.44); Chloride 101 mmol/L (98-107); Sodium 132 mmol/L (136-145)
[2023-01-11 12:08] LABS: Globulin 4.3 g/dL (2.4-3.5); Glucose 153 mg/dL (80-115); Protein, Total 7.4 g/dL (5.8-8.1)
[2023-01-11 12:09] LABS: Anion Gap 24 mmol/L (10-20); Carbon Dioxide 13 mmol/L (23-31)
[2023-01-11 12:10] LABS: Bilirubin, Total 2.4 mg/dL (0.2-1.2)
[2023-01-11 12:11] LABS: Alkaline Phosphatase 350 U/L (40-110); Calc. Creatinine Clearance 0 mL/min (70-130); Estimated GFR 9
[2023-01-11 12:12] LABS: BUN (Urea Nitrogen) 104 mg/dL (9.8-20.1)
[2023-01-11 12:13] LABS: AST (SGOT) 41 U/L (5-34)
[2023-01-11 12:14] LABS: ALT (SGPT) 38 U/L (8-55); CK (CPK) 119 U/L (29-168)
[2023-01-11 12:16] LABS: Band 4 % (5-11); Burr Cells SLIGHT = 2-5 cells HPF (0-1); CellaVision Operator ID LAB.GE; Hypochromia SLIGHT = 6-15 cells HPF (0-5); Large Platelets 6.9 % (0-5); Lymphocytes 3 % (21-51); Monocytes 4 % (0-10); Neutrophil 88 % (42-75); Nucleated RBC (Manual Ct) 9 % (0); Pappenheimer Bodies SLIGHT = 1-2 cells (100X) (None Seen); Platelet Adequacy Comment Platelets Normal; Polychromasia MARKED = >4 cells HPF (0-2); Smudge Cells 5.9 %; Spherocytes SLIGHT = 1-5 cells HPF (None Seen); Target Cells SLIGHT = 2-5 cells HPF (0-1); Total Cell Count 101
[2023-01-11] MEDS ORDERED: Vancomycin 1 GM/200 ML (FROZEN) BAG ONE (13:00)
[2023-01-11] MEDS ORDERED: Acetaminophen 325 MG TAB PO PRN (13:03)
[2023-01-11] MEDS ORDERED: Calcium Gluc 4.6 MEQ/10 ML (100 MG/ML) ONE (13:17)
[2023-01-11] MEDS ORDERED: Albuterol 2.5 MG/0.5 ML NEB ONE (13:17)
[2023-01-11] MEDS ORDERED: Insulin Regular 300 UNITS/3 ML VIAL ONE (13:18)
[2023-01-11] MEDS ORDERED: Dextrose 50% Abboject 50 ML SYRINGE ONE (13:18)
[2023-01-11 14:11] LABS: Base Excess -10.4 mEq/L (-2.0 to +3.0); Calcium, Ionized (venous) 1.16 mmol/L (1.16-1.32); Chloride (VBG) 103 mmol/L (98-106); Hematocrit-VBG 32 % (36.0-47.0); Potassium (VBG) 5.33 mmol/L (3.70-5.30); Sodium 130.4 mmol/L (133-146); pH (venous) 7.309 (7.32-7.43)
[2023-01-11 14:22] LABS: Lactic Acid 3.1 mmol/L (0.5-2.2)
[2023-01-11 14:32] LABS: Troponin I 0.108 ng/mL (< 0.028)
[2023-01-11] MEDS ORDERED: Dextrose 50% Abboject 50 ML SYRINGE SLOW IVP PRN (16:42)
[2023-01-11] MEDS ORDERED: HumaLOG 300 UNITS/3 ML VIAL SC PRN (16:42)
[2023-01-11] MEDS ORDERED: Dextrose 5% in Water 1,000 ML IV PRN (16:42)
[2023-01-11] MEDS ORDERED: Glucagon 1 MG/ML KIT IM PRN (16:42)
[2023-01-11] MEDS ORDERED: Vancomycin Dose by Levels Sliding Scale (Wt <71) FS SCH (17:00)
[2023-01-11 17:57] LABS: Chloride 105 mmol/L (98-107); Sodium 130 mmol/L (136-145)
[2023-01-11 17:58] LABS: Calcium 8.9 mg/dL (7.8-10.44)
[2023-01-11 17:59] LABS: Albumin 2.5 g/dL (3.4-4.8)
[2023-01-11 18:00] LABS: Bilirubin, Total 1.7 mg/dL (0.2-1.2)
[2023-01-11 18:01] LABS: Globulin 4.1 g/dL (2.4-3.5); Glucose 179 mg/dL (80-115); Protein, Total 6.6 g/dL (5.8-8.1)
[2023-01-11] MEDS: Heparin 5,000 UNITS/ML VIAL SC SCH ×2 (18:01→20:19)
[2023-01-11 18:02] LABS: Anion Gap 22 mmol/L (10-20)
[2023-01-11 18:04] LABS: AST (SGOT) 44 U/L (5-34); Alkaline Phosphatase 301 U/L (40-110)
[2023-01-11 18:05] LABS: BUN (Urea Nitrogen) 99 mg/dL (9.8-20.1); Calc. Creatinine Clearance 13 mL/min (70-130); Estimated GFR 10
[2023-01-11 18:07] LABS: ALT (SGPT) 33 U/L (8-55)
[2023-01-11 18:08] LABS: Carbon Dioxide 9 mmol/L (23-31)
[2023-01-11 18:20] LABS: Troponin I 0.126 ng/mL (< 0.028)
[2023-01-11] MEDS ORDERED: Sodium Bicarb 50 MEQ/50 ML VIAL IVP SCH (18:45)
[2023-01-11 18:51] LABS: Base Excess (BEa) -10.4 mEq/L (-2.0 to +3.0); Calcium, Ionized (arterial) 1.21 mmol/L (1.12-1.30); Carboxyhemoglobin (COHb) 0.9 gm% (0.0-3.0); Hematocrit-ABG 32 % (36.0-47.0); Hemoglobin (Hb) 10.9 g/dL (12.0-16.0); O2 Tension (PaO2), arterial 89.7 mmHg (> 80.0); Potassium - ABG Lab 5.33 mmol/L (3.70-5.30); pH, Arterial 7.373 (7.35-7.45)
[2023-01-11 18:53] LABS: Actual Bicarbonate (HCO3a) 13.2 mEq/L (22-28); CO2 Tension 23.2 mmHg (35.0-45.0)
[2023-01-11 18:54] LABS: Puncture Site LRA
[2023-01-11 18:59] LABS: Lactic Acid 3.6 mmol/L (0.5-2.2)
[2023-01-11] MEDS: Atorvastatin Calcium 20 MG TAB PO SCH (20:22)
[2023-01-11] MEDS: Carvedilol 6.25 MG TAB PO SCH (20:22)
[2023-01-11] MEDS ORDERED: Famotidine 20 MG TAB PO SCH (21:00)
[2023-01-11] MEDS ORDERED: Vancomycin 1 GM in Premix Bag 1 BAG IVPB SCH (21:00)
[2023-01-11] MEDS ORDERED: Cefepime 1 GM in Sodium Chloride 0.9% 100 ML IVPB SCH (23:59)
[2023-01-12] MEDS ORDERED: Sodium Chloride 0.9% 250 ML IV SCH (04:30)
[2023-01-12] MEDS: Heparin 5,000 UNITS/ML VIAL SC SCH ×3 (08:57→21:14)
[2023-01-12] MEDS: Carvedilol 6.25 MG TAB PO SCH ×2 (08:57→21:14)
[2023-01-12] MEDS: Anastrozole 1 MG TAB PO SCH (08:57)
[2023-01-12] MEDS ORDERED: Atorvastatin Calcium 20 MG TAB PO SCH (09:00)
[2023-01-12 11:45] LABS: Hemoglobin 9.5 g/dL (12.0-16.0); Mean Corpuscular Hemoglobin 25.7 pg (27.0-31.0); Mean Corpuscular Volume 85.7 fl (78.0-98.0); Mean Platelet Volume 10.9 fL (7.4-10.4); Platelet Count 269 10x3/uL (130-400); RBC Distribution Width 23.3 % (11.5-14.5); White Blood Cell (WBC) Count 8.9 10x3/uL (4.8-10.8)
[2023-01-12 11:48] LABS: Delete Auto Diff?? YES; Manual Diff?? YES
[2023-01-12 12:23] LABS: Lactic Acid 2.5 mmol/L (0.5-2.2)
[2023-01-12 12:28] LABS: ALT (SGPT) 29 U/L (8-55); AST (SGOT) 33 U/L (5-34); Albumin 2.7 g/dL (3.4-4.8); Alkaline Phosphatase 267 U/L (40-110); Anion Gap 22 mmol/L (10-20); BUN (Urea Nitrogen) 102 mg/dL (9.8-20.1); Bilirubin, Total 2.1 mg/dL (0.2-1.2); Calc. Creatinine Clearance 12 mL/min (70-130); Carbon Dioxide 14 mmol/L (23-31); Chloride 104 mmol/L (98-107); Estimated GFR 10; Globulin 3.6 g/dL (2.4-3.5); Glucose 163 mg/dL (80-115); Protein, Total 6.3 g/dL (5.8-8.1); Sodium 134 mmol/L (136-145)
[2023-01-12 12:35] LABS: Potassium 6.2 mmol/L (3.5-5.1)
[2023-01-12 12:39] LABS: Anisocytosis SLIGHT = 6-15 cells HPF (0-5); Band 3 % (5-11); Burr Cells SLIGHT = 2-5 cells HPF (0-1); CellaVision Operator ID LAB.GE; Lymphocytes 1 % (21-51); Monocytes 7 % (0-10); Neutrophil 89 % (42-75); Nucleated RBC (Manual Ct) 12 % (0); Platelet Adequacy Comment Platelets Normal; Polychromasia SLIGHT = 2-3 cells HPF (0-2); Target Cells SLIGHT = 2-5 cells HPF (0-1); Total Cell Count 99
[2023-01-12] MEDS ORDERED: Dextrose 50% Abboject 50 ML SYRINGE SLOW IVP SCH (12:45)
[2023-01-12] MEDS ORDERED: Insulin Regular 300 UNITS/3 ML VIAL IVP SCH (12:45)
[2023-01-12] MEDS ORDERED: LOKELMA 10 GM PACKET PO SCH ×2 (12:45→18:00)
[2023-01-12] MEDS ORDERED: Furosemide 40 MG/4 ML VIAL SLOW IVP SCH ×2 (13:45→18:00)
[2023-01-12] MEDS ORDERED: Sodium Bicarbonate 150 MEQ in Dextrose 5% in Water 1,000 ML IV SCH (13:45)
[2023-01-12] MEDS: Cefepime 0.5 GM, Admixture Fee 1 EACH in Sodium Chloride 0.9% 100 ML IVPB SCH (13:46)
[2023-01-12] MEDS ORDERED: CALCIUM GLUC 1 GM/NS 50 ML 1 GM in Premix Bag 1 BAG IVPB SCH (14:00)
[2023-01-12] MEDS ORDERED: Sodium Bicarbonate 50 MEQ in Sodium Chloride 0.45% 1,000 ML IV SCH (14:00)
[2023-01-12 14:13] LABS: Actual Bicarbonate (HCO3v) 14.6 mEq/L (22-28)
[2023-01-12 17:20] LABS: Anion Gap 21 mmol/L (10-20); BUN (Urea Nitrogen) 100 mg/dL (9.8-20.1); Calc. Creatinine Clearance 12 mL/min (70-130); Calcium 8.9 mg/dL (7.8-10.44); Carbon Dioxide 12 mmol/L (23-31); Chloride 106 mmol/L (98-107); Estimated GFR 10; Glucose 194 mg/dL (80-115); Potassium 5.3 mmol/L (3.5-5.1); Sodium 134 mmol/L (136-145); Vancomycin, Random 12.5 ug/mL (See Comment)
[2023-01-12] MEDS ORDERED: Albumin 25% 25 GM/100 ML BOT IVPB SCH (18:00)
[2023-01-12] MEDS ORDERED: Vancomycin HCl 500 MG in Sodium Chloride 0.9% 100 ML IVPB SCH (18:00)
[2023-01-12 18:39] LABS: Bilirubin Negative (Negative); Blood, Urine Negative (Negative); Clarity Clear (Clear); Glucose, Urine (Dipstick) Normal (Negative); Ketone, Urine Negative (Negative); Leukocyte Negative Leu/uL (Negative); Nitrite Negative (Negative); Protein, Urine (Dipstick) 100 mg/dL (Neg-Trace); RBC/HPF 0-3 HPF (0-3); Specific Gravity, Urine 1.015 (1.002-1.036); Squamous Epithelial 0-3 HPF (0-3); Urobilinogen Normal mg/dL (Less than 2); WBC/HPF 0-3 HPF (0-3); pH, Urine 5.5 (5.0-9.0)
[2023-01-12 18:47] LABS: Bacteria/HPF 1+ HPF (None Seen)
[2023-01-12 19:09] LABS: Creatinine, Urine 98.26 mg/dL (47-110); Protein, Urine Random Quant 108 mg/dL (1-14); Sodium, Urine Less than 20 mmol/L (Not Available)
[2023-01-12 19:19] LABS: Urea Nitrogen, Random Urine 572 mg/dl
[2023-01-12] MEDS: Atorvastatin Calcium 20 MG TAB PO SCH (21:14)
[2023-01-12] MEDS: Furosemide 40 MG/4 ML VIAL SLOW IVP SCH (21:14)
[2023-01-13] MEDS: Albumin 25% 25 GM/100 ML BOT IVPB SCH ×4 (04:55→21:17)
[2023-01-13] MEDS: Furosemide 40 MG/4 ML VIAL SLOW IVP SCH (04:55)
[2023-01-13 08:49] LABS: Hemoglobin 8.5 g/dL (12.0-16.0); Mean Corpuscular HGB CONC 29.8 g/dL (32.0-36.0); Mean Corpuscular Hemoglobin 25.4 pg (27.0-31.0); Mean Corpuscular Volume 85.3 fl (78.0-98.0); Mean Platelet Volume 10.9 fL (7.4-10.4); Platelet Count 227 10x3/uL (130-400); RBC Distribution Width 22.9 % (11.5-14.5); Red Blood Cell (RBC) Count 3.34 mill/uL (4.20-5.40)
[2023-01-13 08:55] LABS: Delete Auto Diff?? YES; Manual Diff?? YES
[2023-01-13 09:14] LABS: Albumin 3.3 g/dL (3.4-4.8); Anion Gap 22 mmol/L (10-20); BUN (Urea Nitrogen) 100 mg/dL (9.8-20.1); BUN/Creatinine Ratio 21.51; Calc. Creatinine Clearance 12 mL/min (70-130); Calcium 9.1 mg/dL (7.8-10.44); Carbon Dioxide 15 mmol/L (23-31); Chloride 105 mmol/L (98-107); Estimated GFR 10; Glucose 154 mg/dL (80-115); Phosphorus 5.7 mg/dL (2.3-4.7); Potassium 4.7 mmol/L (3.5-5.1); Sodium 137 mmol/L (136-145)
[2023-01-13] MEDS: Heparin 5,000 UNITS/ML VIAL SC SCH ×3 (10:04→21:24)
[2023-01-13] MEDS: Anastrozole 1 MG TAB PO SCH (10:04)
[2023-01-13] MEDS: Carvedilol 6.25 MG TAB PO SCH ×2 (10:04→21:17)
[2023-01-13 11:07] LABS: Amphetamine Not Detected (NotDetected); Barbiturates Screen Not Detected (NotDetected); Benzodiazepine Screen Not Detected (NotDetected); Cocaine Metabolite Screen Not Detected (NotDetected); Methadone Not Detected (NotDetected); Methamphetamine Not Detected (NotDetected); Opiate Screen Not Detected (NotDetected); Oxycodone Screen Not Detected (NotDetected); Phencyclidine (PCP) Not Detected (NotDetected); THC/Cannabinoid Screen Not Detected (NotDetected); Tricyclic Screen Not Detected (NotDetected)
[2023-01-13 11:23] LABS: Band 12 % (5-11); Lymphocytes 5 % (21-51); Monocytes 2 % (0-10); Nucleated RBC (Manual Ct) 11 % (0)
[2023-01-13 11:30] LABS: Anisocytosis MODERATE=16-30 cells (100X) (0-5/hpf)
[2023-01-13 11:32] LABS: Metamyelocyte 1 % (0-0)
[2023-01-13 11:33] LABS: Polychromasia SLIGHT = 2-3 cells (100X) (0-2/hpf); Target Cells SLIGHT = 2-5 cells (100X) (0-1/hpf)
[2023-01-13 11:34] LABS: Giant Platelets SLIGHT HPF (0-5)
[2023-01-13 11:40] LABS: Hypochromia SLIGHT = 6-15 cells (100X) (0-5/hpf)
[2023-01-13 11:42] LABS: Schistocytes SLIGHT = 2-5 cells (100X) (0-1/hpf)
[2023-01-13 11:44] LABS: Eosinophils 3 % (0-10); Neutrophil 77 % (42-75)
[2023-01-13 15:04] LABS: Anion Gap 19 mmol/L (10-20); BUN (Urea Nitrogen) 104 mg/dL (9.8-20.1); Calc. Creatinine Clearance 12 mL/min (70-130); Calcium 8.9 mg/dL (7.8-10.44); Carbon Dioxide 17 mmol/L (23-31); Chloride 103 mmol/L (98-107); Estimated GFR 10; Glucose 164 mg/dL (80-115); Potassium 5.1 mmol/L (3.5-5.1); Sodium 134 mmol/L (136-145)
[2023-01-13] MEDS: Cefepime 0.5 GM, Admixture Fee 1 EACH in Sodium Chloride 0.9% 100 ML IVPB SCH (15:22)
[2023-01-13] MEDS ORDERED: Sodium Bicarbonate 150 MEQ in Dextrose 5% in Water 1,000 ML IV SCH (16:45)
[2023-01-13] MEDS ORDERED: Vancomycin HCl 750 MG in Sodium Chloride 0.9% 250 ML 250 ML IVPB SCH (19:30)
[2023-01-13] MEDS: Atorvastatin Calcium 20 MG TAB PO SCH (21:17)
[2023-01-14] MEDS: Albumin 25% 25 GM/100 ML BOT IVPB SCH ×3 (03:40→14:38)
[2023-01-14 04:51] LABS: White Blood Cell (WBC) Count 8.5 10x3/uL (4.8-10.8)
[2023-01-14 04:52] LABS: Hemoglobin 8.7 g/dL (12.0-16.0); Mean Corpuscular Hemoglobin 26.2 pg (27.0-31.0); Mean Corpuscular Volume 84.6 fl (78.0-98.0); Mean Platelet Volume 11.9 fL (7.4-10.4); Platelet Count 271 10x3/uL (130-400); RBC Distribution Width 23.5 % (11.5-14.5); Red Blood Cell (RBC) Count 3.32 mill/uL (4.20-5.40)
[2023-01-14 05:04] LABS: Delete Auto Diff?? YES; Manual Diff?? YES
[2023-01-14 05:31] LABS: Band 7 % (5-11); Lymphocytes 1 % (21-51); Neutrophil 92 % (42-75)
[2023-01-14 05:32] LABS: Anisocytosis SLIGHT = 6-15 cells HPF (0-5); CellaVision Operator ID LAB.CLH1; Hypochromia SLIGHT = 6-15 cells HPF (0-5); Macrocytosis SLIGHT = 6-15 cells HPF (0-5); Nucleated RBC (Manual Ct) 5 % (0); Platelet Adequacy Comment Platelets Normal; Poikilocytosis SLIGHT = 6-15 cells HPF (0-5); Polychromasia SLIGHT = 2-3 cells HPF (0-2); Target Cells SLIGHT = 2-5 cells HPF (0-1); Total Cell Count 102
[2023-01-14] MEDS ORDERED: DOBUTamine 500 mg/250 ml 250 ML IVPB SCH (07:30)
[2023-01-14 08:52] LABS: Hemoglobin 8.8 g/dL (12.0-16.0); Mean Corpuscular HGB CONC 30.1 g/dL (32.0-36.0); Mean Corpuscular Hemoglobin 26.2 pg (27.0-31.0); Mean Corpuscular Volume 86.9 fl (78.0-98.0); Mean Platelet Volume 11.7 fL (7.4-10.4); Platelet Count 245 10x3/uL (130-400); RBC Distribution Width 23.6 % (11.5-14.5); Red Blood Cell (RBC) Count 3.36 mill/uL (4.20-5.40); White Blood Cell (WBC) Count 9.5 10x3/uL (4.8-10.8)
[2023-01-14 08:54] LABS: Delete Auto Diff?? YES; Manual Diff?? YES
[2023-01-14 09:24] LABS: Calcium 8.9 mg/dL (7.8-10.44); Carbon Dioxide 18 mmol/L (23-31); Chloride 102 mmol/L (98-107); Globulin 2.5 g/dL (2.4-3.5); Glucose 163 mg/dL (80-115); Potassium 4.8 mmol/L (3.5-5.1); Protein, Total 6.5 g/dL (5.8-8.1); Sodium 137 mmol/L (136-145)
[2023-01-14 09:25] LABS: ALT (SGPT) 26 U/L (8-55); AST (SGOT) 36 U/L (5-34); Alkaline Phosphatase 219 U/L (40-110); Anion Gap 22 mmol/L (10-20); BUN (Urea Nitrogen) 105 mg/dL (9.8-20.1); Bilirubin, Total 2.2 mg/dL (0.2-1.2); Calc. Creatinine Clearance 12 mL/min (70-130); Estimated GFR 9; Magnesium 2.6 mg/dL (1.6-2.6); Phosphorus 6.4 mg/dL (2.3-4.7)
[2023-01-14] MEDS: Heparin 5,000 UNITS/ML VIAL SC SCH ×3 (09:29→21:12)
[2023-01-14] MEDS: Anastrozole 1 MG TAB PO SCH (09:29)
[2023-01-14 09:49] LABS: Band 1 % (5-11); Burr Cells SLIGHT = 2-5 cells HPF (0-1); CellaVision Operator ID LAB.GE; Hypochromia SLIGHT = 6-15 cells HPF (0-5); Large Platelets 6.7 % (0-5); Lymphocytes 3 % (21-51); Neutrophil 95 % (42-75); Nucleated RBC (Manual Ct) 9 % (0); Ovalocytes SLIGHT = 2-5 cells HPF (0-1); Platelet Adequacy Comment Platelets Normal; Poikilocytosis SLIGHT = 6-15 cells HPF (0-5); Polychromasia MODERATE = 3-4 cells HPF (0-2); Total Cell Count 105
[2023-01-14] MEDS: Cefepime 0.5 GM, Admixture Fee 1 EACH in Sodium Chloride 0.9% 100 ML IVPB SCH (14:37)
[2023-01-14] MEDS: Sodium Bicarbonate Tab 325 MG TAB PO SCH ×2 (14:38→21:12)
[2023-01-14] MEDS: Epoetin (ESRD) 10,000 UNITS/ML VIAL SC SCH (14:51)
[2023-01-14 19:34] LABS: Vancomycin, Random 17.9 ug/mL (See Comment)
[2023-01-14] MEDS ORDERED: Vancomycin HCl 500 MG in Sodium Chloride 0.9% 100 ML IV SCH (20:15)
[2023-01-14] MEDS: Atorvastatin Calcium 20 MG TAB PO SCH (21:12)
[2023-01-14] MEDS: Pantoprazole 40 MG VIAL IVP SCH (21:12)
[2023-01-15] MEDS: Anastrozole 1 MG TAB PO SCH (08:45)
[2023-01-15] MEDS: Sodium Bicarbonate Tab 325 MG TAB PO SCH ×3 (08:48→20:49)
[2023-01-15] MEDS: Pantoprazole 40 MG VIAL IVP SCH ×2 (08:49→21:00)
[2023-01-15] MEDS: Heparin 5,000 UNITS/ML VIAL SC SCH ×3 (08:49→21:01)
[2023-01-15 09:24] LABS: Mean Corpuscular Hemoglobin 25.7 pg (27.0-31.0); Mean Corpuscular Volume 85.9 fl (78.0-98.0); Mean Platelet Volume 10.3 fL (7.4-10.4); Platelet Count 196 10x3/uL (130-400); RBC Distribution Width 23.4 % (11.5-14.5); Red Blood Cell (RBC) Count 3.11 mill/uL (4.20-5.40); White Blood Cell (WBC) Count 10.9 10x3/uL (4.8-10.8)
[2023-01-15 09:29] LABS: Delete Auto Diff?? YES; Manual Diff?? YES
[2023-01-15 09:46] LABS: Iron 18 ug/dL (50-170); Iron Binding Capacity, Total 178 mcg/dL (265-497)
[2023-01-15 09:47] LABS: Anion Gap 25 mmol/L (10-20); BUN (Urea Nitrogen) 106 mg/dL (9.8-20.1); Calc. Creatinine Clearance 11 mL/min (70-130); Calcium 9.3 mg/dL (7.8-10.44); Carbon Dioxide 19 mmol/L (23-31); Chloride 101 mmol/L (98-107); Estimated GFR 8; Glucose 155 mg/dL (80-115); Potassium 4.8 mmol/L (3.5-5.1); Sodium 140 mmol/L (136-145)
[2023-01-15 10:05] LABS: Anisocytosis SLIGHT = 6-15 cells HPF (0-5); Band 3 % (5-11); Burr Cells SLIGHT = 2-5 cells HPF (0-1); CellaVision Operator ID LAB.GE; Hypochromia SLIGHT = 6-15 cells HPF (0-5); Monocytes 2 % (0-10); Neutrophil 93 % (42-75); Nucleated RBC (Manual Ct) 6 % (0); Platelet Adequacy Comment Platelets Normal; Polychromasia MODERATE = 3-4 cells HPF (0-2); Reactive Lymphocytes 2 % (0-10); Target Cells SLIGHT = 2-5 cells HPF (0-1); Total Cell Count 102
[2023-01-15] MEDS: Cefepime 0.5 GM, Admixture Fee 1 EACH in Sodium Chloride 0.9% 100 ML IVPB SCH (12:37)
[2023-01-15] MEDS ORDERED: Furosemide 40 MG/4 ML VIAL SLOW IVP SCH ×2 (13:00→19:00)
[2023-01-15] MEDS ORDERED: Digoxin 0.5 MG/2 ML AMP SLOW IVP SCH (15:45)
[2023-01-15] MEDS ORDERED: DOBUTamine 500 mg/250 ml 250 ML IVPB SCH (15:45)
[2023-01-15] MEDS: Albumin 25% 25 GM/100 ML BOT IVPB SCH (16:00)
[2023-01-15] MEDS: hydrALAZINE 10 MG TAB PO SCH ×2 (16:43→20:49)
[2023-01-15] MEDS: Iron, Sodium Ferric Gluconate 250 MG in Sodium Chloride 0.9% 250 ML 250 ML IVPB SCH (17:12)
[2023-01-15] MEDS: Atorvastatin Calcium 20 MG TAB PO SCH (20:49)
[2023-01-16 07:31] LABS: Hemoglobin 8.2 g/dL (12.0-16.0); Mean Corpuscular Hemoglobin 25.5 pg (27.0-31.0); Mean Platelet Volume 11.4 fL (7.4-10.4); Platelet Count 197 10x3/uL (130-400); RBC Distribution Width 23.3 % (11.5-14.5); Red Blood Cell (RBC) Count 3.21 mill/uL (4.20-5.40); White Blood Cell (WBC) Count 12.2 10x3/uL (4.8-10.8)
[2023-01-16 07:36] LABS: Manual Diff?? YES
[2023-01-16 07:37] LABS: Delete Auto Diff?? YES
[2023-01-16 07:49] LABS: INR-International Normal Ratio 1.8; Prothrombin Time 21.3 sec (12.0-14.7)
[2023-01-16 07:56] LABS: PTT 144.9 sec (22.9-36.1)
[2023-01-16 08:03] LABS: Anisocytosis SLIGHT = 6-15 cells HPF (0-5); Band 5 % (5-11); Hypochromia MODERATE=16-30 cells HPF (0-5); Large Platelets 1.1 % (0-5); Lymphocytes 1 % (21-51); Monocytes 2 % (0-10); Neutrophil 91 % (42-75); Nucleated RBC (Manual Ct) 16 % (0); Platelet Adequacy Comment Platelets Normal; Poikilocytosis MODERATE=16-30 cells HPF (0-5); Polychromasia SLIGHT = 2-3 cells HPF (0-2); Reactive Lymphocytes 1 % (0-10); Total Cell Count 95
[2023-01-16 08:21] LABS: Anion Gap 23 mmol/L (10-20); BUN (Urea Nitrogen) 112 mg/dL (9.8-20.1); Calc. Creatinine Clearance 10 mL/min (70-130); Calcium 9.1 mg/dL (7.8-10.44); Carbon Dioxide 19 mmol/L (23-31); Chloride 100 mmol/L (98-107); Estimated GFR 8; Glucose 162 mg/dL (80-115); Potassium 4.8 mmol/L (3.5-5.1); Sodium 137 mmol/L (136-145)
[2023-01-16] MEDS ORDERED: Heparin 10,000 UNITS/ 10 ML VIAL ONE (08:59)
[2023-01-16] MEDS: Sodium Bicarbonate Tab 325 MG TAB PO SCH ×3 (09:47→21:40)
[2023-01-16] MEDS: Heparin 5,000 UNITS/ML VIAL SC SCH ×3 (09:47→21:41)
[2023-01-16] MEDS: hydrALAZINE 10 MG TAB PO SCH ×3 (09:47→21:39)
[2023-01-16] MEDS: Anastrozole 1 MG TAB PO SCH (09:47)
[2023-01-16] MEDS: Pantoprazole 40 MG VIAL IVP SCH ×2 (09:48→21:40)
[2023-01-16] MEDS: Cefepime 0.5 GM, Admixture Fee 1 EACH in Sodium Chloride 0.9% 100 ML IVPB SCH (14:35)
[2023-01-16] MEDS: Iron, Sodium Ferric Gluconate 250 MG in Sodium Chloride 0.9% 250 ML 250 ML IVPB SCH (15:19)
[2023-01-16 16:46] LABS: Hep C IgG Ab Non-Reactive S/CO (NonReactive)
[2023-01-16 16:49] LABS: HBSAg Index 0.28 S/CO (0-0.99); Hep B Surf Ag Non-Reactive S/CO (NonReactive)
[2023-01-16 16:50] LABS: Hep B Core Total Ab Reactive (NonReactive); Hep B Core Total Index 6.85 S/CO (0-0.79); Hep B Surf AB Reactive (NonReactive)
[2023-01-16] MEDS: Atorvastatin Calcium 20 MG TAB PO SCH (21:51)
[2023-01-17 06:09] LABS: Anion Gap 20 mmol/L (10-20); BUN (Urea Nitrogen) 80 mg/dL (9.8-20.1); Calc. Creatinine Clearance 13 mL/min (70-130); Calcium 8.8 mg/dL (7.8-10.44); Carbon Dioxide 22 mmol/L (23-31); Chloride 101 mmol/L (98-107); Estimated GFR 10; Glucose 140 mg/dL (80-115); Potassium 4.2 mmol/L (3.5-5.1); Sodium 139 mmol/L (136-145)
[2023-01-17] MEDS ORDERED: Heparin 10,000 UNITS/ 10 ML VIAL ONE (08:57)
[2023-01-17 11:07] LABS: Magnesium 2.7 mg/dL (1.6-2.6)
[2023-01-17] MEDS: hydrALAZINE 10 MG TAB PO SCH ×3 (12:07→22:42)
[2023-01-17] MEDS: Anastrozole 1 MG TAB PO SCH (12:07)
[2023-01-17] MEDS: Heparin 5,000 UNITS/ML VIAL SC SCH ×3 (12:07→21:57)
[2023-01-17] MEDS: Pantoprazole 40 MG VIAL IVP SCH ×2 (12:13→21:56)
[2023-01-17] MEDS: Sodium Bicarbonate Tab 325 MG TAB PO SCH (13:07)
[2023-01-17] MEDS: Cefepime 0.5 GM, Admixture Fee 1 EACH in Sodium Chloride 0.9% 100 ML IVPB SCH (13:27)
[2023-01-17] MEDS: Iron, Sodium Ferric Gluconate 250 MG in Sodium Chloride 0.9% 250 ML 250 ML IVPB SCH (15:08)
[2023-01-17] MEDS: Atorvastatin Calcium 20 MG TAB PO SCH (21:56)
[2023-01-18 07:12] LABS: Hemoglobin 9.3 g/dL (12.0-16.0); Mean Corpuscular HGB CONC 30.1 g/dL (32.0-36.0); Mean Corpuscular Hemoglobin 25.5 pg (27.0-31.0); Mean Corpuscular Volume 84.9 fl (78.0-98.0); Mean Platelet Volume 11.8 fL (7.4-10.4); Platelet Count 154 10x3/uL (130-400); RBC Distribution Width 24.5 % (11.5-14.5); Red Blood Cell (RBC) Count 3.64 mill/uL (4.20-5.40); White Blood Cell (WBC) Count 11.4 10x3/uL (4.8-10.8)
[2023-01-18 07:17] LABS: Delete Auto Diff?? YES; Manual Diff?? YES
[2023-01-18 07:32] LABS: Albumin 3.6 g/dL (3.4-4.8); Anion Gap 23 mmol/L (10-20); BUN (Urea Nitrogen) 43 mg/dL (9.8-20.1); BUN/Creatinine Ratio 13.11; Calc. Creatinine Clearance 18 mL/min (70-130); Calcium 9.1 mg/dL (7.8-10.44); Carbon Dioxide 19 mmol/L (23-31); Chloride 100 mmol/L (98-107); Estimated GFR 15; Glucose 112 mg/dL (80-115); Phosphorus 4.6 mg/dL (2.3-4.7); Potassium 4.5 mmol/L (3.5-5.1); Sodium 137 mmol/L (136-145)
[2023-01-18] MEDS: Apixaban 5 MG TAB PO SCH ×2 (08:32→20:27)
[2023-01-18] MEDS: Anastrozole 1 MG TAB PO SCH (08:32)
[2023-01-18] MEDS: Pantoprazole 40 MG VIAL IVP SCH ×2 (08:32→20:27)
[2023-01-18] MEDS: hydrALAZINE 10 MG TAB PO SCH ×3 (09:22→20:27)
[2023-01-18] MEDS: Carvedilol 3.125 MG TAB PO SCH ×2 (09:24→16:45)
[2023-01-18 09:39] LABS: Anisocytosis SLIGHT = 6-15 cells HPF (0-5); Band 10 % (5-11); Basophilic Stippling SLIGHT = 1-2 cells HPF (None Seen); Burr Cells SLIGHT = 2-5 cells HPF (0-1); CellaVision Operator ID LAB.GE; Large Platelets 4.9 % (0-5); Monocytes 2 % (0-10); Neutrophil 88 % (42-75); Nucleated RBC (Manual Ct) 68 % (0); Platelet Adequacy Comment Platelets Normal; Polychromasia MODERATE = 3-4 cells HPF (0-2); Total Cell Count 103; Vacuoles SLIGHT
[2023-01-18] MEDS: Iron, Sodium Ferric Gluconate 250 MG in Sodium Chloride 0.9% 250 ML 250 ML IVPB SCH (17:22)
[2023-01-18] MEDS: Atorvastatin Calcium 20 MG TAB PO SCH (20:28)
[2023-01-19 08:28] LABS: Albumin 3.2 g/dL (3.4-4.8); Anion Gap 21 mmol/L (10-20); BUN (Urea Nitrogen) 27 mg/dL (9.8-20.1); BUN/Creatinine Ratio 11.16; Calc. Creatinine Clearance 23 mL/min (70-130); Carbon Dioxide 20 mmol/L (23-31); Chloride 100 mmol/L (98-107); Estimated GFR 21; Glucose 115 mg/dL (80-115); Phosphorus 3.5 mg/dL (2.3-4.7); Potassium 3.7 mmol/L (3.5-5.1); Sodium 137 mmol/L (136-145)
[2023-01-19 10:23] VITALS: BMI 25.7
[2023-01-19] MEDS: Anastrozole 1 MG TAB PO SCH (11:51)
[2023-01-19] MEDS: Carvedilol 3.125 MG TAB PO SCH ×2 (11:51→16:34)
[2023-01-19] MEDS: Apixaban 5 MG TAB PO SCH ×2 (11:51→21:23)
[2023-01-19] MEDS: hydrALAZINE 10 MG TAB PO SCH ×3 (11:52→21:24)
[2023-01-19] MEDS ORDERED: HYDROcodone/Acetaminophen 5/325 mg Tablet PO PRN (12:47)
[2023-01-19] MEDS: Pantoprazole 40 MG VIAL IVP SCH ×2 (12:58→21:20)
[2023-01-19] MEDS: Atorvastatin Calcium 20 MG TAB PO SCH (21:23)
[2023-01-20] MEDS: Apixaban 5 MG TAB PO SCH ×2 (09:06→22:32)
[2023-01-20] MEDS: Carvedilol 3.125 MG TAB PO SCH ×2 (09:06→15:23)
[2023-01-20] MEDS: hydrALAZINE 10 MG TAB PO SCH ×3 (09:06→22:32)
[2023-01-20] MEDS: Anastrozole 1 MG TAB PO SCH (09:06)
[2023-01-20] MEDS: Pantoprazole 40 MG VIAL IVP SCH ×2 (09:16→22:33)
[2023-01-20] MEDS ORDERED: Heparin 10,000 UNITS/ 10 ML VIAL ONE (09:18)
[2023-01-20 10:20] LABS: Hemoglobin 8.7 g/dL (12.0-16.0); Mean Corpuscular HGB CONC 31.2 g/dL (32.0-36.0); Mean Corpuscular Hemoglobin 25.6 pg (27.0-31.0); Mean Corpuscular Volume 82.1 fl (78.0-98.0); Platelet Count 152 10x3/uL (130-400); RBC Distribution Width 24.8 % (11.5-14.5); White Blood Cell (WBC) Count 11.2 10x3/uL (4.8-10.8)
[2023-01-20 10:26] LABS: Delete Auto Diff?? YES; Manual Diff?? YES
[2023-01-20 10:31] LABS: Albumin 3.1 g/dL (3.4-4.8); Anion Gap 24 mmol/L (10-20); BUN (Urea Nitrogen) 40 mg/dL (9.8-20.1); BUN/Creatinine Ratio 12.12; Calc. Creatinine Clearance 17 mL/min (70-130); Calcium 9.4 mg/dL (7.8-10.44); Carbon Dioxide 19 mmol/L (23-31); Chloride 100 mmol/L (98-107); Estimated GFR 15; Glucose 151 mg/dL (80-115); Phosphorus 4.6 mg/dL (2.3-4.7); Sodium 139 mmol/L (136-145)
[2023-01-20 12:19] LABS: Band 9 % (5-11); Burr Cells SLIGHT = 2-5 cells HPF (0-1); CellaVision Operator ID LAB.GE; Hypochromia SLIGHT = 6-15 cells HPF (0-5); Lymphocytes 5 % (21-51); Monocytes 4 % (0-10); Neutrophil 81 % (42-75); Nucleated RBC (Manual Ct) 124 % (0); Platelet Adequacy Comment Platelets Normal; Polychromasia SLIGHT = 2-3 cells HPF (0-2); Target Cells SLIGHT = 2-5 cells HPF (0-1); Total Cell Count 101; Vacuoles SLIGHT
[2023-01-20] MEDS: Atorvastatin Calcium 20 MG TAB PO SCH (22:32)
[2023-01-21 03:25] LABS: Anion Gap 26 mmol/L (10-20); BUN (Urea Nitrogen) 19 mg/dL (9.8-20.1); Calc. Creatinine Clearance 29 mL/min (70-130); Carbon Dioxide 21 mmol/L (23-31); Chloride 97 mmol/L (98-107); Estimated GFR 29; Glucose 114 mg/dL (80-115); Magnesium 1.9 mg/dL (1.6-2.6); Potassium 3.7 mmol/L (3.5-5.1); Sodium 140 mmol/L (136-145)
[2023-01-21] MEDS: Apixaban 5 MG TAB PO SCH ×2 (11:07→22:16)
[2023-01-21] MEDS: Pantoprazole 40 MG VIAL IVP SCH ×2 (11:07→22:16)
[2023-01-21] MEDS: Anastrozole 1 MG TAB PO SCH (11:07)
[2023-01-21] MEDS: Carvedilol 3.125 MG TAB PO SCH ×2 (11:07→17:04)
[2023-01-21] MEDS: hydrALAZINE 10 MG TAB PO SCH ×3 (11:07→22:15)
[2023-01-21] MEDS: Epoetin (ESRD) 10,000 UNITS/ML VIAL SC SCH (11:14)
[2023-01-21] MEDS: Atorvastatin Calcium 20 MG TAB PO SCH (22:16)
[2023-01-22 08:12] VITALS: BP 94/66; TEMP 97.3
[2023-01-22] MEDS: Carvedilol 3.125 MG TAB PO SCH (08:58)
[2023-01-22] MEDS: Apixaban 5 MG TAB PO SCH (08:58)
[2023-01-22] MEDS: hydrALAZINE 10 MG TAB PO SCH (08:58)
[2023-01-22] MEDS: Pantoprazole 40 MG VIAL IVP SCH (08:58)
[2023-01-22] MEDS: Anastrozole 1 MG TAB PO SCH (08:58)
== END 2023-01-22 12:14 | disposition hospice, inpatient (51) | DRG 871 ==
LOC: ERS 10:16 → 2NO 13:00
PROVIDERS: ADMIT Internal Medicine; ATTEND Family Medicine
PROC: 4A133R1 Monitoring of Arterial Saturation, Peripheral, Percutaneous Approach (ICD-10-PCS; 2023-01-11)
PROC: 3E03329 Introduction of Other Anti-infective into Peripheral Vein, Percutaneous Approach (ICD-10-PCS; 2023-01-11)
PROC: 30233J1 Transfusion of Nonautologous Serum Albumin into Peripheral Vein, Percutaneous Approach (ICD-10-PCS; 2023-01-12)
PROC: 05HY33Z Insertion of Infusion Device into Upper Vein, Percutaneous Approach (ICD-10-PCS; principal; 2023-01-14)
PROC: 5A1D70Z Performance of Urinary Filtration, Intermittent, Less than 6 Hours Per Day (ICD-10-PCS; 2023-01-16)
PROC: 5A1D70Z Performance of Urinary Filtration, Intermittent, Less than 6 Hours Per Day (ICD-10-PCS; 2023-01-17)
PROC: 5A1D70Z Performance of Urinary Filtration, Intermittent, Less than 6 Hours Per Day (ICD-10-PCS; 2023-01-17)
DX: A41.9 Sepsis, unspecified organism (principal); G93.41 Metabolic encephalopathy; I21.A1 Myocardial infarction type 2; J18.9 Pneumonia, unspecified organism; N18.6 End stage renal disease; N17.0 Acute kidney failure with tubular necrosis; I50.23 Acute on chronic systolic (congestive) heart failure; E87.20 Acidosis, unspecified; I42.9 Cardiomyopathy, unspecified; I13.2 Hypertensive heart and chronic kidney disease with heart failure and with stage 5 chronic kidney disease, or end stage renal disease; R65.20 Severe sepsis without septic shock; E87.5 Hyperkalemia; F17.210 Nicotine dependence, cigarettes, uncomplicated; E78.5 Hyperlipidemia, unspecified; I25.10 Atherosclerotic heart disease of native coronary artery without angina pectoris; R74.01 Elevation of levels of liver transaminase levels; I48.0 Paroxysmal atrial fibrillation; D63.1 Anemia in chronic kidney disease; Z88.8 Allergy status to other drugs, medicaments and biological substances; Z98.890 Other specified postprocedural states; Z90.710 Acquired absence of both cervix and uterus; Z90.10 Acquired absence of unspecified breast and nipple; Z79.899 Other long term (current) drug therapy; Z85.3 Personal history of malignant neoplasm of breast; Z95.810 Presence of automatic (implantable) cardiac defibrillator; Z83.3 Family history of diabetes mellitus
CPT/HCPCS: 36415; 36416; 36600; 71045; 74176; 76705; 80048; 80053; 80069; 80202; 80306; 81001; 82140; 82550; 82553; 82570; 82728; 82805; 83540; 83550; 83605; 83735; 83880; 83970; 84100; 84145; 84156; 84300; 84484; 84540; 85025; 85060; 85610; 85730; 86704; 90935; 93005; 93010; 96365; 96367; 96375; 97139; C9113; G0257; J0612; J0613; J0692; J1160; J1250; J1644; J1815; J1940; J2916; J3370; J3370-JW; J3490; J7030; J7050; J7070; J7611; J7999; P9047; Q4081